=== PATIENT | female | born 1950 | race Caucasian/White ===

== ENCOUNTER → 2017-07-03 14:49 | Outpatient (CLI) | payer MEDICARE, MEDICAID, SELFPAY ==
--- NOTE | 2017-07-03 14:55 | XR_ITS ---
XR shoulder LT min 2V HISTORY: ITS.REASON: ACUTE LT SHOULDER PAIN ORDERING PHYSICIAN: JOSE CARLOS Robbins PATIENT AGE: 66 years COMPARISON: None FINDINGS: No fracture or dislocation. No lytic or blastic change. There is normal mineralization. The joint spaces are well-preserved. No significant degenerative/arthritic changes. No erosive changes evident. IMPRESSION: Negative, no acute finding
== END ==
PROVIDERS: PCP Family Medicine; Visit Provider Physician Assistant
DX: M25.512 Pain in left shoulder (principal)
CPT/HCPCS: 73030

== ENCOUNTER → 2017-07-15 08:49 | Outpatient (CLI) | payer MEDICARE, MEDICAID, SELFPAY ==
--- NOTE | 2017-07-15 08:57 | MR_ITS ---
MR shoulder LT wo con Ordering Physician: Nir Isaacs MD Patient Age: 67 years: Female HISTORY: ITS.REASON: ACUTE PAIN OF LEFT SHOULDER Limited range of motion with pain especially raising arm above the left left shoulder.. TECHNIQUE: Multiplanar multisequence imaging 1.5 [facility] MRI COMPARISON :Plain films left shoulder 07/03/2009 18 FINDINGS FULL-THICKNESS SUPRASPINATUS TENDON TEAR. Modest Full-thickness rotator cuff tear involving anterior aspect of the supraspinatus tendon. This tear mainly involves the inferior surface & intrasubstance portion and partially sparing the superior margin along the at the anterior aspect supraspinatus tendon.. There is full-thickness tear at the tendon insertion as well as other full-thickness tears are believe seen passing through the critical zone of supraspinatus tendon., Only scant, very minimal tendon retraction at the very anterior tendon insertion region. Overall estimated supraspinatus tendon tear to measure span span up to 11 mm AP on sagittal view & over 12 mm length on coronal view Focal area of increased signal cap of greater tuberosity , just beneath the anterior supraspinatus tendon insertion tear. This likely reflects the Progressive degenerative changes here & subchondral cystic changes in this region & although could reflect recent focal bone injury at this attachment point. . Also Associated fluid subdeltoid subacromial bursa reflecting the full-thickness rotator cuff tear... ---- Other components rotator cuff appear intact: Infraspinatus Tendon and muscle intact.. Subscapularis Tendon and muscle appear intact. Only scant if any tendinopathy near superior subscapularis tendon insertion. Moderate/generous joint effusion at left shoulder joint. This yields fluid tracking along the otherwise intact appearing biceps tendon. Osseous glenoid is intact. The posterior glenoid labrum small but appears intact. Anterior inferior glenoid labrum very small & blunted..- Suspect degeneration & minimal fraying most likely. This there is question of possible more pronounced tear or injury here.. In either case the anterior inferior labrum is small in diminutive. The more superior anterior labrum appears normal.. Also question and note what appears to be some mild edema inferior to the glenoid and along the inferior posterior joint capsule and soft tissues-seen on coronal image 6 and 7. No marialuisa disruption of the inferior glenohumeral ligament structures.. With only very minor AC joint arthropathy. Negligible. Slight downward sloping of the acromion with slightly narrowed, with just over 6 mm subacromial space beneath tip of acromion.. This mild subacromial stenosis beneath the tip of acromion may contribute to rotator cuff demise here and subacromial impingement. =====IMPRESSION========= . 1... Focal full-thickness rotator cuff tear towards anterior aspect the supraspinatus tendon . This tear mainly involves the undersurface and intrasubstance but with areas of full-thickness component. No prominent tendon retraction- only question some scant minor retraction anterior most supraspinatus insertion Associated fluid at subdeltoid subacromial bursa. 2. Generous joint effusion with associated fluid along the biceps tendon sheath, 3. Small diminutive anterior inferior glenoid labrum. Likely due to degeneration w/ fraying,;. However possible additional anterior labral tear 4.. Suggestion of mild edema in soft tissues just beneath the inferior posterior margin of glenoid. Joint capsule soft tissues with slight increased signal.. Correlation required.
== END ==
PROVIDERS: Family Provider Family Medicine; PCP Family Medicine; Visit Provider Family Medicine
DX: M25.512 Pain in left shoulder (principal)
CPT/HCPCS: 73221

== ENCOUNTER 2017-08-06 10:59 | Outpatient (RCR) | payer MEDICARE, MEDICAID, SELFPAY ==
--- NOTE | 2017-08-06 11:53 | HMH.PTOPEV ---
Rehab Outpatient Evaluation Rehab OP Evaluation Start: 08/06/17 11:38 Freq: Status: Active Protocol: Document 08/06/17 11:39 RMARSHALL (Rec: 08/06/17 11:52 [id number] Electronically Signed By Marga Wilkes OT 08/06/17 11:39 Outpatient Therapy Subjective History Subjective History Pt is a 67 year old female who reports to therapy for initial evaluation to left shoulder. Pt has been dx with left shoulder adhesive capsulitis and a L rotator cuff tear. Pt does not remember any specific injury to cause the problems at the shoulder. Pt reports pain, decreased AROM, and decreased strength. Pt does demonstrate with significant decreased AROM at left shoulder. Patient was also very weak in left arm. Pt has had one steroid injection in the left shoulder and will have two more injections over the next two months. Pt will continue to be seen twice a week in order to address these deficits. Chief Complaint Pain Stiff Catches/Locks Symptom Type Ache Throb Sharp Dull Stabbing Burning Shooting Symptoms Relieved By Nothing Symptoms Aggravated By Physical Activity Lifting Prior Functional Limitations None Current Functional Limitations Reaching Lifting Housework Dressing Driving Sleeping Recreation Activity Symptom Description Intermittent Activity Dependent Level of pain today (0-10) 1 Pain scale - at its best (0-10) 1 Pain scale - at its worst (0-10) 10 Shoulder/Elbow Eval Shoulder Objective Measurements Shoulder ROM Left Shoulder ROM Limitations Muscle Tone Pain [place]
== END 2017-08-06 11:00 | disposition home or self-care (01) ==
LOC: OT 10:59
PROVIDERS: Family Provider Family Medicine; PCP Family Medicine; Visit Provider Orthopaedic Surgery
DX: M25.512 Pain in left shoulder (principal); M75.42 Impingement syndrome of left shoulder; M75.102 Unspecified rotator cuff tear or rupture of left shoulder, not specified as traumatic; M75.02 Adhesive capsulitis of left shoulder
CPT/HCPCS: 97166

== ENCOUNTER 2017-08-12 14:25 | Inpatient (IN) ==
--- NOTE | 2017-08-12 15:05 | History & Physical Report ---
*Admission Date: 08/12/17 <Taty Long 08/12/17 15:18> *Chief complaint: weakness, dizziness and nauseated <EthanTaty 08/12/17 15:18> *History of present illness: Ms Johnson is a 67 year old female with a history of CAD, HLP, OAB, HTN and colon polyps who has been weak and dizzy for 5 days. She called her daughter 04/15 and reported the dizziness and stated that she was unable to walk very far without having to sit and rest. She may have passed out briefly. She did vomit once and had one black stool. She did call the ambulance service that day and EMT's assessed her. She was told that her BP was low, she was probably a little dehydrated from a stomach virus, and needed to drink more fluids. EKG was normal. She continued on with nausea but denied having any further vomiting or black stools. She denied hemachezia. Thus her daughter brought her to [facility] to see Dr. Patino for evaluation. H&H was found to be 5.8/18.5. She was admitted to [facility] for blood administration and surgical consult. AT the time of this exam she is extremely weak and became dizzy with minimal exertion. 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 <Taty Lnog 08/12 15:18> Laterality Cases: Left: Other, Bilateral: Tonsillectomy <Taty Long 08/12 15:18> Other Surgeries: Yes: Coronary Stent, Dilation and Curettage, Hysterectomy- Partial <Taty Long 08/12/17 15:18> Comment: cardiac stents x3 04/2005; cyst removed from the neck; polyps removed from colon 07/2016 <Taty Long 08/12/17 15:18> - *Social History Smoking Status: Former smoker <Taty Long 08/12/17 15:18> Alcohol Intake: never <LongTaty 08/12/17 15:18> - Psychiatric History Pschychiatric History:: Reports:: Depression <EthanTaty 08/12/17 15:18> *Family Hx:: Diabetes, Cancer, Coronary Artery Disease, Stroke <EthanTaty - 08/12/17 15:18> Review of Systems - Constitutional Reports fatigue, Reports fever(s), Reports lack of energy, Denies body ache(s), Denies chills, Denies headache(s) <[facility] 08/12/17 15:18> Comments: decreased appetite <Long,Taty 08/12/17 15:18> - Eyes Denies change in vision <Shilpa Longhy 08/12/17 15:18> - ENT Reports dizziness, Denies difficulty swallowing, Denies ear pain, Denies headache(s), Denies sore throat <Shilpa Longhy 08/12/17 15:18> - *Cardiovascular Reports shortness of breath, Reports shortness of breath with activity, Reports fainting, Denies chest pain, Denies leg swelling <EthanTaty 08/12/17 15: 18> - *Respiratory Reports shortness of breath with activity, Denies chest congestion, Denies cough , Denies coughing up blood <Shilpa Longhy 08/12/17 15:18> - *Gastrointestinal Reports abdominal pain, Reports change in bowel habits, Reports change in stools , Reports cramping, Reports black, tarry stools, Reports nausea, Reports vomiting, Denies constipation, Denies heartburn, Denies vomiting blood < Shilpa Longhy 08/12/17 15:18> - *Genitourinary Denies difficulty urinating <EthanTaty 08/12/17 15:18> - *Musculoskeletal Reports joint pain <Shilpa Longhy 08/12/17 15:18> Comments: has a torn rotator cuff of the left shoulder <Taty Long 08/12/17 15:18> - *Neurologic Reports unsteadiness, Reports dizziness <Taty Long 08/12/17 15:18> Comments: daughter reports some disorientation <Taty Long - 08/12/17 15:18> Meds Home Medications Medication Instructions Recorded Confirmed Type aspirin 81 mg tablet,delayed 81 mg PO DAILY 07/31/17 08/12/17 History release atorvastatin 40 mg tablet 40 mg PO HS 07/31/17 08/12/17 History citalopram 20 mg tablet 20 mg PO HS 07/31/17 08/12/17 History lisinopril 5 mg tablet 5 mg PO DAILY 07/31/17 08/12/17 History metoprolol succinate ER 25 mg 25 mg PO DAILY 07/31/17 08/12/17 History tablet,extended release 24 hr mirabegron ER 50 mg 50 mg PO HS 07/31/17 08/12/17 History tablet,extended release 24 hr multivitamin tablet 1 tab PO DAILY 07/31/17 08/12/17 History omeprazole 40 mg capsule,delayed 40 mg PO DAILY 07/31/17 08/12/17 History release <Antony Patino - 08/12/17 17:41> Allergies Allergy/AdvReac Type Severity Reaction Status Date / Time No Known Allergies Allergy Verified 08/12/17 15:50 <Antony Patino - 08/12/17 17:41> Exam Vital signs and Labs for Last 24 Hours: Temp Pulse Resp BP Pulse Ox 97.9 F 81 20 110/67 96 08/12/17 17:25 08/12/17 17:25 08/12/17 17:25 08/12/17 17:25 08/12/17 17:25 Laboratory Results - last 24 hr 08/12/17 14:50: WBC 8.9, RBC 2.32 L, Hgb 5.4 L*, Hct 19.2 L*, MCV 82.5, MCH 23.1 L, MCHC 28.0 L, RDW 15.1, Plt Count 347, MPV 8.5, Neut % (Auto) 67.0, Lymph % (Auto) 25.0, [place] % (Auto) 5.6, Eos % (Auto) 1.9, Baso % (Auto) 0.5, Neut # (Auto) 6.0, Lymph # (Auto) 2.2, [place] # (Auto) 0.5, Eos # (Auto) 0.2, Baso # (Auto) 0.0 08/12/17 14:50: PT 10.4, INR 0.96, APTT 22.1 L 08/12/17 14:50: Sodium 138, Potassium 3.3 L, Chloride 102, Carbon Dioxide 26, Anion Gap 13.3, BUN 13, Creatinine 0.75, Estimated Creat Clear 68, Estimated GFR 77, Est GFR ( Amer) 93, Glucose 117 H, Calcium 8.9, Total Bilirubin 0.2, AST 15, ALT 16, Alkaline Phosphatase 74, Total Protein 6.6, Albumin 3.1 L, Globulin 3.5 H, Albumin/Globulin Ratio 0.9 L 08/12/17 14:50: Blood Type A Negative, Antibody Screen Negative, Crossmatch ([facility] ) See Detail <Antony Patino 08/12/17 17:41> I & O for Last 24 hours: Intake & Output 08/10/17 08/11/17 08/12/17 08/13/17 11:59 11:59 11:59 11:59 Weight 177 lb 2 oz <Antony Patino 08/12/17 17:41> - Constitutional no acute distress <EthanTaty - 08/12/17 15:30> Comments: [facility] - *Routine HEENT Exam Head: Present: normocephalic, atraumatic <Taty Long 08/12/17 15:30> Eye: Present: PERRL. Absent: conjunctival icterus, scleral injection, conjunctivae pink (pale conjunctivae) <LongTaty - 08/12/17 15:30> ENT: Present: mucous membranes moist, oropharynx clear, nares patent, external ear normal, TM's clear bilaterally <[facility] 08/12/17 15:30> - *Routine Neck Exam Present: supple. Absent: carotid bruit, lymphadenopathy, thyromegaly, tenderness <Taty Long 08/12/17 15:30> - *Routine Respiratory Exam Absent: CTA bilaterally (A&P), respiratory distress <LongTaty 08/12/17 15:30> - *Routine Cardiovascular Exam Present: RRR <LongTaty - 08/12/17 15:30> - *Routine Abdominal Exam Present: soft, normoactive bowel sounds, tenderness. Absent: distended, guarding <Taty Long - 08/12/17 15:30> Comments: some mid abdominal tenderness <Taty Long - 08/12/17 15:30> - *Routine Extremities Exam Absent: edema, calf tenderness <Taty Long - 08/12/17 15:30> - *Routine Neurological Exam Present: alert, oriented X3 <Taty Long - 08/12/17 15:30> became dizzy with deep breathing for lung exam <Taty Long - 08/12/17 15:30> H&P: Result - Labs Labs: Short CBC 08/12/17 Range/Units 14:50 WBC 8.9 (4.8-10.8) K/mm3 Hgb 5.4 L* (12.2-16.2) g/dL Hct 19.2 L* (37.0-47.0) % Plt Count 347 (142-424) K/mm3 BMP 08/12/17 14:50 Sodium 138 Potassium 3.3 L Chloride 102 Carbon Dioxide 26 BUN 13 Creatinine 0.75 Glucose 117 H Calcium 8.9 Liver Function 08/12/17 Range/Units 14:50 Total Bilirubin 0.2 (0.2-1.0) mg/dL AST 15 (15-37) U/L ALT 16 (12-78) U/L Alkaline Phosphatase 74 (46-116) U/L Albumin 3.1 L (3.4-5.0) gm/dL <Antony Patino - 08/12/17 17:41> Assessment and Plan (1) Anemia Current visit: Yes Status: Acute Category: Medical Code(s): D64.9 - Anemia, unspecified (2) Anemia associated with acute blood loss Current visit: Yes Status: Acute Category: Medical Code(s): D62 - Acute posthemorrhagic anemia (3) GI bleed Current visit: Yes Status: Acute Category: Medical Code(s): K92.2 - Gastrointestinal hemorrhage, unspecified (4) CAD (coronary artery disease) Current visit: Yes Status: Chronic Category: Medical Code(s): I25.10 - Atherosclerotic heart disease of [place] tribe coronary artery without angina pectoris (5) HTN (hypertension) Current visit: Yes Status: Chronic Category: Medical Code(s): I10 - Essential (primary) hypertension <Antony Patino - 08/12/17 17:41> (1) Anemia Current visit: Yes Status: Acute Category: Medical Code(s): D64.9 - Anemia, unspecified (2) Anemia associated with acute blood loss Current visit: Yes Status: Acute Category: Medical Code(s): D62 - Acute posthemorrhagic anemia (3) GI bleed Current visit: Yes Status: Acute Category: Medical Code(s): K92.2 - Gastrointestinal hemorrhage, unspecified (4) CAD (coronary artery disease) Current visit: Yes Status: Chronic Category: Medical Code(s): I25.10 - Atherosclerotic heart disease of [place] coronary artery without angina pectoris (5) HTN (hypertension) Current visit: Yes Status: Chronic Category: Medical Code(s): I10 - Essential (primary) hypertension <Taty Long - 08/12/17 15:18> - Assessment and plan all Dx Assessment and Plan for all problems:: Saw patient, discussed case with Dr. Aj, agree with above note. <Antony Patino - 08/12/17 17:41> To receive 3 units of PRBC; monitor H&H; surgical consult; PPI; some of home meds have been restarted <Taty Long - 08/12/17 15:30>
[2017-08-12 15:13] LABS: Eosinophils # 0.2 K/mm3 (0.0-0.4); Eosinophils % 1.9 % (0.1-12.0); Lymphocytes # 2.2 K/mm3 (0.7-4.5); Red Blood Count 2.32 M/mm3 (4.20-5.40)
[2017-08-12 15:17] LABS: Basophils % 0.5 % (0.1-2.0); Mean Corpuscular Hemoglobin 23.1 pg (27.0-31.2); Mean Corpuscular Volume 82.5 fl (81-99); Mean Platelet Volume 8.5 fl (7.4-10.4); Monocytes # 0.5 K/mm3 (0.1-1.0); Monocytes % 5.6 % (1.7-9.3); Platelet Count 347 K/mm3 (142-424); Red Cell Distribution Width 15.1 % (11.5-17.5); White Blood Count 8.9 K/mm3 (4.8-10.8)
[2017-08-12 15:18] LABS: Hematocrit 19.2 % (37.0-47.0); Hemoglobin 5.4 g/dL (12.2-16.2)
[2017-08-12 15:19] LABS: Albumin Level 3.1 gm/dL (3.4-5.0); Albumin/Globulin Ratio 0.9 (1.1-1.8); Anion Gap 13.3 mEq/L (5-15); Bilirubin,Total 0.2 mg/dL (0.2-1.0); Calcium 8.9 mg/dL (8.5-10.1); Globulin 3.5 gm/dl (1.3-3.2); Potassium 3.3 mmoL/L (3.5-5.1); Total Protein,Serum 6.6 gm/dL (6.4-8.2)
[2017-08-12 15:58] LABS: Activated Partial Thrombo Time 22.1 seconds (23.6-34.0); INR 0.96 (0.9-1.1); Prothrombin Time 10.4 seconds (9.4-11.8)
--- NOTE | 2017-08-12 16:19 | Consult Report ---
*Admission Date: 08/12/17 *Chief complaint: Weakness *History of present illness: Ms Johnson is a 67 year old female with a history of CAD, HLP, OAB, HTN. She has had progressive weakness with minimal exertion over about 5 days. When this all began she had an episode of vomiting. There was no visible blood and this was non-coffee ground like. She has had some black stools over the past several days. She had presented to [facility] today and underwent blood work which revealed profound anemia with a hemoglobin of 5.8. She did have some near syncopal episode and was admitted for inpatient management, transfusion, and surgical consultation. Of note, patient has prior history of possible ulcerative colitis considered many years ago and had seen Dr. Juilen. She has had colonoscopies. She had a colonoscopy by Dr. Tripp revealing several polyps in 2011. I performed colonoscopy on 08/14/16 and she had 3 tubular adenomas and internal hemorrhoids as well as some diverticulosis. Biopsies were obtained within the terminal ileum and random colon biopsies were obtained and these were unremarkable. She denies any rectal bleeding. Denies any prior history of ulcer disease. Denies previous upper endoscopy. Review of Systems - Review of Systems Review of systems:: pertinent systems reviewed and negative unless documented below - *Neurologic Reports unsteadiness, Reports dizziness, Reports fainting, Denies headache(s) [facility] History Medical History: Reports:: Atherosclerotic Heart Disease, Coronary Artery Disease, Depression, Hyperlipidemia, Hypertension, Myocardial Infarction Denies:: Cancer, Diabetes Mellitus Type 1, Diabetes Mellitus Type 2, MRSA Other Medical History: Reports: Anemia Laterality Cases: Left: Other, Bilateral: Tonsillectomy Other Surgeries: Yes: Coronary Stent, Dilation and Curettage, Hysterectomy- Partial Amputation: No - *Social History Educational Level: Completed High School Smoking Status: Former smoker Tobacco Type: cigarettes Smoking End Date: 2015 Alcohol Intake: never Occupational Status: retired Household Members: none - Psychiatric History Expresses thoughts of harming self/others: None Suicide Plan Description: No Plan Pschychiatric History:: Reports:: Depression *Family Hx:: Diabetes, Cancer, Coronary Artery Disease, Stroke Meds Home Medications Medication Instructions Recorded Confirmed Type aspirin 81 mg tablet,delayed 81 mg PO DAILY 07/31/17 08/12/17 History release atorvastatin 40 mg tablet 40 mg PO HS 07/31/17 08/12/17 History citalopram 20 mg tablet 20 mg PO HS 07/31/17 08/12/17 History lisinopril 5 mg tablet 5 mg PO DAILY 07/31/17 08/12/17 History metoprolol succinate ER 25 mg 25 mg PO DAILY 07/31/17 08/12/17 History tablet,extended release 24 hr mirabegron ER 50 mg 50 mg PO HS 07/31/17 08/12/17 History tablet,extended release 24 hr multivitamin tablet 1 tab PO DAILY 07/31/17 08/12/17 History omeprazole 40 mg capsule,delayed 40 mg PO DAILY 07/31/17 08/12/17 History release Allergies Allergy/AdvReac Type Severity Reaction Status Date / Time No Known Allergies Allergy Verified 08/12/17 15:50 Exam Vital signs and Labs for Last 24 Hours: Temp Pulse Resp BP Pulse Ox 98.1 F 73 20 114/67 95 08/12/17 15:01 08/12/17 15:01 08/12/17 15:01 08/12/17 15:01 08/12/17 15:01 Laboratory Results - last 24 hr 08/12/17 14:50: WBC 8.9, RBC 2.32 L, Hgb 5.4 L*, Hct 19.2 L*, MCV 82.5, MCH 23.1 L, MCHC 28.0 L, RDW 15.1, Plt Count 347, MPV 8.5, Neut % (Auto) 67.0, Lymph % (Auto) 25.0, [place] % (Auto) 5.6, Eos % (Auto) 1.9, Baso % (Auto) 0.5, Neut # (Auto) 6.0, Lymph # (Auto) 2.2, Frio # (Auto) 0.5, Eos # (Auto) 0.2, Baso # (Auto) 0.0 08/12/17 14:50: PT 10.4, INR 0.96, APTT 22.1 L 08/12/17 14:50: Sodium 138, Potassium 3.3 L, Chloride 102, Carbon Dioxide 26, Anion Gap 13.3, BUN 13, Creatinine 0.75, Estimated Creat Clear 68, Estimated GFR 77, Est GFR ( Amer) 93, Glucose 117 H, Calcium 8.9, Total Bilirubin 0.2, AST 15, ALT 16, Alkaline Phosphatase 74, Total Protein 6.6, Albumin 3.1 L, Globulin 3.5 H, Albumin/Globulin Ratio 0.9 L 08/12/17 14:50: Blood Type A Negative, Crossmatch ([facility]) See Detail I & O for Last 24 hours: Intake & Output 08/10/17 08/11/17 08/12/17 08/13/17 11:59 11:59 11:59 11:59 Weight 177 lb 2 oz - Constitutional chronically ill appearing Comments: Quite pale appearing - *Routine Respiratory Exam Present: CTA bilaterally - *Routine Cardiovascular Exam Present: RRR - *Routine Abdominal Exam Present: soft. Absent: tenderness Results - Labs 08/12/17 14:50 08/12/17 14:50 Laboratory Results - last 24 hr 08/12/17 14:50: WBC 8.9, RBC 2.32 L, Hgb 5.4 L*, Hct 19.2 L*, MCV 82.5, MCH 23.1 L, MCHC 28.0 L, RDW 15.1, Plt Count 347, MPV 8.5, Neut % (Auto) 67.0, Lymph % (Auto) 25.0, [place] % (Auto) 5.6, Eos % (Auto) 1.9, Baso % (Auto) 0.5, Neut # (Auto) 6.0, Lymph # (Auto) 2.2, Frio # (Auto) 0.5, Eos # (Auto) 0.2, Baso # (Auto) 0.0 08/12/17 14:50: PT 10.4, INR 0.96, APTT 22.1 L 08/12/17 14:50: Sodium 138, Potassium 3.3 L, Chloride 102, Carbon Dioxide 26, Anion Gap 13.3, BUN 13, Creatinine 0.75, Estimated Creat Clear 68, Estimated GFR 77, Est GFR ( Amer) 93, Glucose 117 H, Calcium 8.9, Total Bilirubin 0.2, AST 15, ALT 16, Alkaline Phosphatase 74, Total Protein 6.6, Albumin 3.1 L, Globulin 3.5 H, Albumin/Globulin Ratio 0.9 L 08/12/17 14:50: Blood Type A Negative, Crossmatch ([facility]) See Detail Assessment and Plan (1) Anemia Current visit: Yes Status: Acute Category: Medical Code(s): D64.9 - Anemia , unspecified At this time tentatively plan for upper endoscopy tomorrow morning for diagnosis and less likely for therapeutic indications. She may have clear liquids tonight. She is to be transfused tonight. (2) Anemia associated with acute blood loss Current visit: Yes Status: Acute Category: Medical Code(s): D62 - Acute posthemorrhagic anemia (3) GI bleed Current visit: Yes Status: Acute Category: Medical Code(s): K92.2 - Gastrointestinal hemorrhage, unspecified (4) CAD (coronary artery disease) Current visit: Yes Status: Chronic Category: Medical Code(s): I25.10 - Atherosclerotic heart disease of tribal coronary artery without angina pectoris (5) HTN (hypertension) Current visit: Yes Status: Chronic Category: Medical Code(s): I10 - Essential (primary) hypertension
[2017-08-13 06:56] LABS: Basophils % 0.4 % (0.1-2.0); Eosinophils # 0.2 K/mm3 (0.0-0.4); Eosinophils % 2.2 % (0.1-12.0); Hematocrit 28.6 % (37.0-47.0); Lymphocytes # 1.8 K/mm3 (0.7-4.5); Mean Corpuscular HGB Conc 31.8 g/dL (31.8-35.4); Mean Corpuscular Hemoglobin 27.3 pg (27.0-31.2); Mean Corpuscular Volume 85.8 fl (81-99); Mean Platelet Volume 8.4 fl (7.4-10.4); Monocytes # 0.5 K/mm3 (0.1-1.0); Monocytes % 6.2 % (1.7-9.3); Neutrophils # 5.1 K/mm3 (1.8-7.8); Neutrophils % 67.1 % (37.0-80.0); Platelet Count 220 K/mm3 (142-424); Red Blood Count 3.33 M/mm3 (4.20-5.40); Red Cell Distribution Width 14.8 % (11.5-17.5); White Blood Count 7.6 K/mm3 (4.8-10.8)
[2017-08-13 07:08] LABS: Hemoglobin 9.2 g/dL (12.2-16.2)
[2017-08-13 07:11] LABS: Anion Gap 9.7 mEq/L (5-15); Potassium 4.7 mmoL/L (3.5-5.1)
--- NOTE | 2017-08-13 07:22 | Pharmacy Consult Notes ---
[facility] Pharmacy VTE Monitoring - Patient Demographics Admission date: 08/12/17 Report Date: 08/13/17 Time: 07:22 Allergies/Adverse Reactions: Patient Allergies No Known Allergies Allergy (Verified 08/12/17 15:50) Height: 1.63 m Weight: 80.343 kg Patient Problems: Current Active Problems Anemia (Acute) Anemia associated with acute blood loss (Acute) GI bleed (Acute) CAD (coronary artery disease) (Chronic) HTN (hypertension) (Chronic) - VTE Risk Labs: VTE Related Lab Results Hgb 9.2 g/dL (12.2-16.2) L D 08/13/17 06:05 Hct 28.6 % (37.0-47.0) L 08/13/17 06:05 Plt Count 220 K/mm3 (142-424) D 08/13/17 06:05 PT 10.4 seconds (9.4-11.8) 08/12/17 14:50 INR 0.96 (0.9-1.1) 08/12/17 14:50 APTT 22.1 seconds (23.6-34.0) L 08/12/17 14:50 BUN 9 mg/dL (7-18) D 08/13/17 06:05 Creatinine 0.74 mg/dL (0.55-1.02) 08/13/17 06:05 Estimated Creat Clear 68 mL/min (0-300) 08/13/17 06:05 Was VTE Risk Assessment Performed: Yes VTE Score: 2 VTE Risk Level: Very Low Risk Clinical Trial Participant: No - Prophylaxis VTE Prophylaxis Ordered?: Yes Types of VTE Prophylaxis: TEDS Knee High Location of Applied Device: Bilateral Lower Extremeties
--- NOTE | 2017-08-13 09:08 | Procedure Note ---
- Procedure: Date: 08/13/17 Procedure Performed:: Esophagogastroduodenoscopy with biopsy Indications:: Patient is a pleasant 67-year-old white female. She has undergone several colonoscopies in the past. Most recent colonoscopy was in July 2016. She had presented to her primary care provider's office yesterday with a several day history of weakness and near syncope. She did have black stool. Denied hematemesis. Evaluation including bark revealed profound anemia with a hemoglobin of 5.4. Patient was admitted for inpatient management and surgical consultation. Plan was made for upper endoscopy. Patient was transfused 3 units of packed red blood cells with a good appropriate response and marked symptomatic improvement. Performing Provider:: Antony Aj MD Referring Provider:: Antony Patino MD Sedation:: Propofol Procedure:: Consent was obtained the patient was taken to endoscopy procedure room. She was positioned in a lateral decubitus position. Adequate intravenous sedation was achieved with titration of propofol. Olympus endoscope was inserted via the oropharynx and advanced the esophagus which appeared grossly normal. Stomach was cannulated and insufflated. Retroflexion revealed a rather large sliding hiatal hernia. There was a linear erosion along the mid body of the stomach but no evidence of any recent or active bleeding. There was some punctate prepyloric gastritis which was nonerosive. Pylorus was traversed. Duodenal bulb and duodenal sweep to the third portion of the duodenum were unremarkable. Endoscope was withdrawn into the stomach and gastric antral mucosal biopsies obtained for CLOtest for H. pylori. Stomach was desufflated and the scope was withdrawn. Findings:: Large hiatal hernia Linear gastric erosion Recommendations:: No obvious source on upper endoscopy that would explain the significant amount of blood loss. This could be non-GI source. However, despite the fact that the patient has had relatively recent colonoscopy plan colonoscopy tomorrow after bowel prep. Complications:: None Estimated blood obtained (mL): 1
--- NOTE | 2017-08-13 13:18 | Progress Note ---
Internal Medicine - PN: Subj *Date: 08/13/17 *Time: 13:15 Interval history: Patient back in her room now after EGD, just ate some jello and drank some juice. Exam Vital signs and Labs for Last 24 Hours: Temp Pulse Resp BP Pulse Ox 97.9 F 74 16 110/47 99 08/13/17 10:35 08/13/17 11:20 08/13/17 11:20 08/13/17 11:20 08/13/17 11:20 Laboratory Results - last 24 hr 08/12/17 14:50: WBC 8.9, RBC 2.32 L, Hgb 5.4 L*, Hct 19.2 L*, MCV 82.5, MCH 23.1 L, MCHC 28.0 L, RDW 15.1, Plt Count 347, MPV 8.5, Neut % (Auto) 67.0, Lymph % (Auto) 25.0, [place] % (Auto) 5.6, Eos % (Auto) 1.9, Baso % (Auto) 0.5, Neut # (Auto) 6.0, Lymph # (Auto) 2.2, [place] # (Auto) 0.5, Eos # (Auto) 0.2, Baso # (Auto) 0.0 08/12/17 14:50: PT 10.4, INR 0.96, APTT 22.1 L 08/12/17 14:50: Sodium 138, Potassium 3.3 L, Chloride 102, Carbon Dioxide 26, Anion Gap 13.3, BUN 13, Creatinine 0.75, Estimated Creat Clear 68, Estimated GFR 77, Est GFR ( Amer) 93, Glucose 117 H, Calcium 8.9, Total Bilirubin 0.2, AST 15, ALT 16, Alkaline Phosphatase 74, Total Protein 6.6, Albumin 3.1 L, Globulin 3.5 H, Albumin/Globulin Ratio 0.9 L 08/12/17 14:50: Blood Type A Negative, Antibody Screen Negative, Crossmatch (AHG ) See Detail 08/13/17 06:05: WBC 7.6, RBC 3.33 L D, Hgb 9.2 L D, Hct 28.6 L, MCV 85.8, MCH 27.3, MCHC 31.8, RDW 14.8, Plt Count 220 D, MPV 8.4, Neut % (Auto) 67.1, Lymph % (Auto) 24.0, [place] % (Auto) 6.2, Eos % (Auto) 2.2, Baso % (Auto) 0.4, Neut # ( Auto) 5.1, Lymph # (Auto) 1.8, [place] # (Auto) 0.5, Eos # (Auto) 0.2, Baso # (Auto ) 0.0 08/13/17 06:05: Sodium 142, Potassium 4.7 D, Chloride 108 H, Carbon Dioxide 29 , Anion Gap 9.7, BUN 9 D, Creatinine 0.74, Estimated Creat Clear 68, Estimated GFR 78, Est GFR ( Amer) 94, Glucose 108 H Vital Signs Temp Pulse Pulse Resp BP BP Pulse Ox 08/13/17 11:20 74 16 110/47 99 08/13/17 10:50 78 16 125/74 97 08/13/17 10:35 97.9 F 74 16 117/67 99 08/13/17 10:20 97.9 F 74 16 125/73 97 08/13/17 10:05 97.9 F 73 16 120/65 99 08/13/17 09:51 97 08/13/17 09:48 97.9 F 73 131/59 97 08/13/17 09:40 77 20 109/70 100 08/13/17 09:30 71 20 117/58 100 08/13/17 09:20 72 20 106/61 100 08/13/17 09:10 69 20 103/60 98 08/13/17 09:08 98.0 F 70 20 94/61 96 08/13/17 07:15 97.9 F 71 22 87/61 96 08/13/17 03:10 98.1 F 77 18 113/58 94 L 08/13/17 02:10 98.0 F 67 16 119/67 99 08/13/17 01:30 97.9 F 73 16 106/54 94 L 08/13/17 00:30 98.3 F 72 16 88/64 95 08/13/17 00:15 97.4 F L 71 16 103/46 98 08/13/17 00:00 97.7 F 69 16 100/54 98 08/12/17 23:45 97.8 F 74 18 92/49 97 04/16/18 23:38 97.5 F L 75 16 106/54 96 /16/18 23:32 97.4 F L 78 16 99/56 95 16/18 23:28 98.2 F 73 18 104/61 95 16/18 23:24 97.9 F 68 18 112/75 95 16/18 23:05 97.5 F L 72 18 109/47 95 16/18 22:40 98.2 F 68 16 106/69 94 L 1618 21:40 97.8 F 70 18 123/74 95 16/18 21:25 98.5 F 72 18 103/55 96 16/18 21:10 98.1 F 74 18 121/53 96 1618 20:55 98.0 F 83 18 121/78 97 16/18 20:50 98.1 F 76 18 124/65 94 L 18 20:45 98.1 F 82 18 120/81 98 1618 20:40 98.2 F 76 18 103/59 95 16/18 20:36 97.9 F 85 20 133/62 98 /16/18 20:12 97.9 F 85 20 133/62 98 /16/18 19:37 97.9 F 82 20 146/95 99 16/18 19:10 98.2 F 79 20 133/75 98 /16/18 18:55 98.1 F 78 20 138/82 99 /16/18 17:55 98.0 F 73 18 130/68 96 16/18 17:40 98.0 F 75 20 120/57 98 16/18 17:25 97.9 F 81 20 110/67 96 /16/18 17:10 98.2 F 75 20 120/55 98 /16/18 17:05 98.0 F 73 18 116/64 94 L 16/18 17:00 98.3 F 74 20 113/55 96 16/18 16:55 97.9 F 78 20 132/53 98 /16/18 16:45 97.7 F 78 20 117/55 97 16/18 15:01 98.1 F 73 20 114/67 95 Intake and Output 08/13/18 08/13/17 08/13/17 03:59 11:59 19:59 Intake Total 281 / 281 Balance 281 / 281 Intake: Intake, Total IV Amount 281 / 281 D5W/0.45% NaCl w/40mEq KCl 1, 281 / 281 000 ml @ 75 mls/hr IV .[id number] [place] Rx#:[id number] Other: Weight 177 lb 2 oz I & O for Last 24 hours: Intake & Output 08/11/17 08/12/17 08/13/17 08/14/17 11:59 11:59 11:59 11:59 Intake Total 1229 / 1229 Balance 1229 / 1229 Weight 177 lb 2 oz - Constitutional no acute distress - *Routine HEENT Exam ENT: Present: mucous membranes moist - *Routine Respiratory Exam Present: CTA bilaterally - *Routine Cardiovascular Exam Present: RRR Assessment and Plan (1) Anemia Current visit: Yes Status: Acute Category: Medical Code(s): D64.9 - Anemia , unspecified (2) Anemia associated with acute blood loss Current visit: Yes Status: Acute Category: Medical Code(s): D62 - Acute posthemorrhagic anemia (3) GI bleed Current visit: Yes Status: Acute Category: Medical Code(s): K92.2 - Gastrointestinal hemorrhage, unspecified (4) CAD (coronary artery disease) Current visit: Yes Status: Chronic Category: Medical Code(s): I25.10 - Atherosclerotic heart disease of [place] coronary artery without angina pectoris (5) HTN (hypertension) Current visit: Yes Status: Chronic Category: Medical Code(s): I10 - Essential (primary) hypertension (6) Hypokalemia Current visit: Yes Status: Resolved Category: Medical Code(s): E87.6 - Hypokalemia - Assessment and plan all Dx Assessment and Plan for all problems:: No obvious source of bleeding found, plans are for a colonoscopy tomorrow.
--- NOTE | 2017-08-14 08:05 | Progress Note ---
<Alida Rowland - Last Filed: 08/14/17 08:02> Internal Medicine - PN: Subj *Date: 08/14/17 *Time: 08:02 Interval history: Patient states she actually feels weaker than she did yesterday. She denies any pain. She states she slept well last night. She has not had any food since admission. Exam Vital signs and Labs for Last 24 Hours: Temp Pulse Resp BP Pulse Ox 97.4 F L 80 20 128/57 98 08/14/17 07:42 08/14/17 07:42 08/14/17 07:42 08/14/17 07:42 08/14/17 07:42 Lab Results 08/12/17 14:50: WBC 8.9, RBC 2.32 L, Hgb 5.4 L*, Hct 19.2 L*, MCV 82.5, MCH 23.1 L, MCHC 28.0 L, RDW 15.1, Plt Count 347, MPV 8.5, Neut % (Auto) 67.0, Lymph % (Auto) 25.0, [place] % (Auto) 5.6, Eos % (Auto) 1.9, Baso % (Auto) 0.5, Neut # (Auto) 6.0, Lymph # (Auto) 2.2, [place] # (Auto) 0.5, Eos # (Auto) 0.2, Baso # (Auto) 0.0 08/12/17 14:50: PT 10.4, INR 0.96, APTT 22.1 L 08/12/17 14:50: Sodium 138, Potassium 3.3 L, Chloride 102, Carbon Dioxide 26, Anion Gap 13.3, BUN 13, Creatinine 0.75, Estimated Creat Clear 68, Estimated GFR 77, Est GFR ( Amer) 93, Glucose 117 H, Calcium 8.9, Total Bilirubin 0.2, AST 15, ALT 16, Alkaline Phosphatase 74, Total Protein 6.6, Albumin 3.1 L, Globulin 3.5 H, Albumin/Globulin Ratio 0.9 L 08/12/17 14:50: Blood Type A Negative, Antibody Screen Negative, Crossmatch (AHG ) See Detail 08/13/17 06:05: WBC 7.6, RBC 3.33 L D, Hgb 9.2 L D, Hct 28.6 L, MCV 85.8, MCH 27.3, MCHC 31.8, RDW 14.8, Plt Count 220 D, MPV 8.4, Neut % (Auto) 67.1, Lymph % (Auto) 24.0, [place] % (Auto) 6.2, Eos % (Auto) 2.2, Baso % (Auto) 0.4, Neut # ( Auto) 5.1, Lymph # (Auto) 1.8, [place] # (Auto) 0.5, Eos # (Auto) 0.2, Baso # (Auto ) 0.0 08/13/17 06:05: Sodium 142, Potassium 4.7 D, Chloride 108 H, Carbon Dioxide 29 , Anion Gap 9.7, BUN 9 D, Creatinine 0.74, Estimated Creat Clear 68, Estimated GFR 78, Est GFR ( Amer) 94, Glucose 108 H Microbiology Results 08/13/17 08:55 Gastric Biopsy Helicobacter pylori Urease &Culture - Pending I & O for Last 24 hours: Intake & Output 08/11/17 08/12/17 08/13/17 08/14/17 11:59 11:59 11:59 11:59 Intake Total 1229 / 1229 1082 / 1082 Output Total 600 / 600 Balance 1229 / 1229 482 / 482 Weight 177 lb 2 oz - Constitutional no acute distress - *Routine Respiratory Exam Present: CTA bilaterally - *Routine Cardiovascular Exam Present: RRR - *Routine Abdominal Exam Present: soft, normoactive bowel sounds. Absent: tenderness - *Routine Extremities Exam Absent: edema Assessment and Plan (1) Anemia Current visit: Yes Status: Acute Category: Medical Code(s): D64.9 - Anemia , unspecified (2) Anemia associated with acute blood loss Current visit: Yes Status: Acute Category: Medical Code(s): D62 - Acute posthemorrhagic anemia (3) GI bleed Current visit: Yes Status: Acute Category: Medical Code(s): K92.2 - Gastrointestinal hemorrhage, unspecified (4) CAD (coronary artery disease) Current visit: Yes Status: Chronic Category: Medical Code(s): I25.10 - Atherosclerotic heart disease of [place] coronary artery without angina pectoris (5) HTN (hypertension) Current visit: Yes Status: Chronic Category: Medical Code(s): I10 - Essential (primary) hypertension (6) Hypokalemia Current visit: Yes Status: Resolved Category: Medical Code(s): E87.6 - Hypokalemia - Assessment and plan all Dx Assessment and Plan for all problems:: Patient's H&H has improved after blood transfusion. She is scheduled to have a colonoscopy today. <SukumarAntony - Last Filed: 08/14/17 17:38> Internal Medicine - PN: Subj *Date: 08/14/17 *Time: 17:36 Exam Vital signs and Labs for Last 24 Hours: Temp Pulse Resp BP Pulse Ox 98.4 F 82 20 132/72 98 08/14/17 14:00 08/14/17 14:00 08/14/17 14:00 08/14/17 14:00 08/14/17 14:00 Laboratory Results - last 24 hr 08/14/17 10:15: WBC 5.6 D, RBC 3.41 L, Hgb 9.1 L, Hct 29.5 L, MCV 86.4, MCH 26.8 L, MCHC 30.9 L, RDW 15.0, Plt Count 199, MPV 10.0, Neut % (Auto) 59.4, Lymph % (Auto) 29.0, [place] % (Auto) 7.6, Eos % (Auto) 3.5, Baso % (Auto) 0.6, Neut # (Auto) 3.3, Lymph # (Auto) 1.6, [place] # (Auto) 0.4, Eos # (Auto) 0.2, Baso # (Auto) 0.0 I & O for Last 24 hours: Intake & Output 08/12/17 08/13/17 08/14/17 08/15/17 11:59 11:59 11:59 11:59 Intake Total 1229 / 1229 1282 / 1282 240 / 240 Output Total 600 / 600 Balance 1229 / 1229 682 / 682 240 / 240 Weight 177 lb 2 oz 177 lb 2.016 oz Microbiology Reports for the Last 24 Hours: Microbiology 08/13/17 08:55 Gastric Biopsy Helicobacter pylori Urease &Culture - Final Negative Urease for Helicobacter pylori. Assessment and Plan (1) Anemia Current visit: Yes Status: Acute Category: Medical Code(s): D64.9 - Anemia , unspecified (2) Anemia associated with acute blood loss Current visit: Yes Status: Acute Category: Medical Code(s): D62 - Acute posthemorrhagic anemia (3) GI bleed Current visit: Yes Status: Acute Category: Medical Code(s): K92.2 - Gastrointestinal hemorrhage, unspecified (4) CAD (coronary artery disease) Current visit: Yes Status: Chronic Category: Medical Code(s): I25.10 - Atherosclerotic heart disease of [place] coronary artery without angina pectoris (5) HTN (hypertension) Current visit: Yes Status: Chronic Category: Medical Code(s): I10 - Essential (primary) hypertension (6) Hypokalemia Current visit: Yes Status: Resolved Category: Medical Code(s): E87.6 - Hypokalemia - Assessment and plan all Dx Assessment and Plan for all problems:: Saw patient, agree with above note. Colonoscopy was non diagnostic. Patient is feeling well and wants to go home. Plan discharge today with oral iron replacement, f/u in office next week for repeat CBC.
--- NOTE | 2017-08-14 09:26 | Procedure Note ---
- Procedure: Date: 08/14/17 Procedure Performed:: Colonoscopy to terminal ileum with polypectomy Indications:: Patient is 67-year-old white female. She is undergone previous colonoscopy. Last colonoscopy was 1 year ago. She had presented with acute symptomatic anemia. She was admitted for inpatient management and transfused with good response. She underwent upper endoscopy yesterday which revealed large hiatal hernia and single linear erosion within the body of the stomach but no evidence of any obvious etiology for acute blood loss. Plan was made for colonoscopy to evaluate colonic source. Performing Provider:: Antony Aj MD Referring Provider:: Antony Patino MD Sedation:: Propofol Procedure:: Patient was taken to endoscopy procedure room. Adequate intravenous sedation was achieved. Variable stiffness Olympus colonoscope was inserted via the anus and with minimal difficulty was advanced to the cecum. She did have a floppy redundant sigmoid colon. Ileocecal valve and appendiceal orifice were clearly identified. Colonoscope was advanced into the terminal ileum which appeared grossly normal. Colonoscope was withdrawn through the colon with careful surveillance. Within the ascending colon there was a diminutive polyp removed in a piecemeal fashion using cold biopsy forceps. Small additional very diminutive polyp was encountered in the proximal transverse colon removed with cold biopsy forceps. Additional polyp was noted in the descending colon and removed in a similar fashion. She had some significant sigmoid diverticulosis but no evidence of any active diverticular bleed or diverticulitis. Within the rectum retroflexion was performed which revealed nonbleeding internal hemorrhoids. Colonoscope was withdrawn. Findings:: Diminutive polyps Diverticulosis Recommendations:: No source of GI blood loss on colonoscopy. It is possible she may have had upper GI source which is now resolved, the erosion previously noted. At this point I would plan to check the hemoglobin and hematocrit for stability. If stable may will be discharged and follow up as an outpatient for possible small bowel evaluation including small bowel follow-through and possible capsule endoscopy. Complications:: None Estimated blood obtained (mL): 2
[2017-08-14 10:25] LABS: Basophils % 0.6 % (0.1-2.0); Eosinophils # 0.2 K/mm3 (0.0-0.4); Eosinophils % 3.5 % (0.1-12.0); Hematocrit 29.5 % (37.0-47.0); Hemoglobin 9.1 g/dL (12.2-16.2); Lymphocytes # 1.6 K/mm3 (0.7-4.5); Mean Corpuscular HGB Conc 30.9 g/dL (31.8-35.4); Mean Corpuscular Hemoglobin 26.8 pg (27.0-31.2); Mean Corpuscular Volume 86.4 fl (81-99); Monocytes # 0.4 K/mm3 (0.1-1.0); Monocytes % 7.6 % (1.7-9.3); Neutrophils # 3.3 K/mm3 (1.8-7.8); Neutrophils % 59.4 % (37.0-80.0); Platelet Count 199 K/mm3 (142-424); Red Blood Count 3.41 M/mm3 (4.20-5.40); White Blood Count 5.6 K/mm3 (4.8-10.8)
[2017-08-14 14:35] VITALS: BP 132/72
--- NOTE | 2017-08-18 14:54 | Discharge Summary ---
General - General Admission date: 08/12/17 Discharge date: 08/14/17 HPI HPI: Ms Johnson is a 67 year old female with a history of CAD, HLP, OAB, HTN and colon polyps who has been weak and dizzy for 5 days. She called her daughter on 08/08/17 and reported the dizziness and stated that she was unable to walk very far without having to sit and rest. She may have passed out briefly. She did vomit once and had one black stool. She did call the ambulance service that day and EMT's assessed her. She was told that her BP was low, she was probably a little dehydrated from a stomach virus, and needed to drink more fluids. EKG was normal. She continued on with nausea but denied having any further vomiting or black stools. She denied hemachezia. Her daughter brought her to [facility] to see Dr. Patino for evaluation. H&H was found to be 5.8/18.5. She was admitted to [facility] for blood administration and a surgical consult. At the time of this exam she is extremely weak and became dizzy with minimal exertion. Hospital Course Hospital Course: The patient was given 3 units of PRBC and a surgical consult was ordered. The patient had an EGD and Dr. Aj found a large hiatal hernia and a linear gastric erosion. There was no obvious source of bleeding. The patient then had a C-scope and it showed diminutive polyps and diverticulosis, but once again , no obvious source of bleeding. Her H&H stabilized. felt she could be discharged and will need to continue to monitor H&H. She was discharged on iron and will f/u in the office of [facility] in 1 week. She will need to follow up as an outpatient with Dr. Aj for possible small bowel evaluation including small bowel follow-through and possible capsule endoscopy. Objective Vital signs: Temp Pulse Resp BP Pulse Ox 98.4 F 82 20 132/72 98 08/14/17 14:00 08/14/17 14:00 08/14/17 14:00 08/14/17 14:00 08/14/17 14:00 Narrative: - Constitutional no acute distress Comments: pale - *Routine HEENT Exam Head: Present: normocephalic, atraumatic Eye: Present: PERRL. Absent: conjunctival icterus, scleral injection, conjunctivae pink (pale conjunctivae) ENT: Present: mucous membranes moist, oropharynx clear, nares patent, external ear normal, TM's clear bilaterally - *Routine Neck Exam Present: supple. Absent: carotid bruit, lymphadenopathy, thyromegaly, tenderness - *Routine Respiratory Exam Absent: CTA bilaterally (A&P), respiratory distress - *Routine Cardiovascular Exam Present: RRR - *Routine Abdominal Exam Present: soft, normoactive bowel sounds, tenderness. Absent: distended, guarding Comments: some mid abdominal tenderness - *Routine Extremities Exam Absent: edema, calf tenderness - *Routine Neurological Exam Present: alert, oriented X3 became dizzy with deep breathing for lung exam DS: Diagnosis - Discharge Diagnosis (1) Anemia Status: Acute (2) Anemia associated with acute blood loss Status: Acute (3) GI bleed Status: Acute (4) CAD (coronary artery disease) Status: Chronic (5) HTN (hypertension) Status: Chronic (6) Hypokalemia Status: Resolved Discharge Plan - Patient Discharge Instructions ACTIVITY: Continue current activity DIET: continue same diet Patient Instructions: Soft Diet - Follow up Plan Follow up with: Alida Rowland PA [[facility] [employer]] - 1 week Disposition: Home, Self-Retirement Medications: Home Medications Medication Instructions Recorded Confirmed Type atorvastatin 40 mg tablet 40 mg PO HS 07/31/17 08/12/17 History citalopram 20 mg tablet 20 mg PO HS 07/31/17 08/12/17 History lisinopril 5 mg tablet 5 mg PO DAILY 07/31/17 08/12/17 History metoprolol succinate ER 25 mg 25 mg PO DAILY 07/31/17 08/12/17 History tablet,extended release 24 hr mirabegron ER 50 mg 50 mg PO HS 07/31/17 08/12/17 History tablet,extended release 24 hr multivitamin tablet 1 tab PO DAILY 07/31/17 08/12/17 History omeprazole 40 mg capsule,delayed 40 mg PO DAILY 07/31/17 08/12/17 History release Hydrocodone/Acetaminophen 1 each PO Q4-6H PRN 08/12/17 08/12/17 History [Hydrocodone-Acetamin 5-325 mg] Prescriptions/Medication Reconciliation: New Ferrous Sulfate [Ferrous Sulfate 325mg Tablet] 325 mg PO BID #60 tab Vitamin B Complex [B Complex] 1 each PO DAILY #30 tab Continue multivitamin tablet 1 tab PO DAILY mirabegron ER 50 mg tablet,extended release 24 hr 50 mg PO HS lisinopril 5 mg tablet 5 mg PO DAILY metoprolol succinate ER 25 mg tablet,extended release 24 hr 25 mg PO DAILY atorvastatin 40 mg tablet 40 mg PO HS omeprazole 40 mg capsule,delayed release 40 mg PO DAILY citalopram 20 mg tablet 20 mg PO HS Hydrocodone/Acetaminophen [Hydrocodone-Acetamin 5-325 mg] 1 each PO Q4-6H PRN PRN Reason: PAIN Discontinued aspirin 81 mg tablet,delayed release 81 mg PO DAILY No Action cephALEXin [Keflex 500mg Cap] 500 mg PO QID #28 cap
== END 2017-08-14 18:47 | disposition home or self-care (01) ==
LOC: 2ND → OBSVTOIN 14:25
PROVIDERS: ADMIT Family Medicine; ATTEND Family Medicine

== ENCOUNTER → 2017-09-16 10:56 | Outpatient (CLI) | payer MEDICARE, MEDICAID, SELFPAY ==
--- NOTE | 2017-09-16 10:58 | FL_ITS ---
FL small bowel follow through CLINICAL INDICATION: Anemia of unknown etiology ITS.REASON: anemia ORDERING PHYSICIAN: Antony Aj MD PATIENT AGE: 67 years Comparison: None FINDINGS: [employer] exam shows a faint calcific density in the left upper quadrant consistent with small renal stone at 3 mm. There is mild lumbar scoliosis convex left. There is a moderate sized hiatal hernia. Small bowel has an unremarkable appearance. No obstructing lesions or masses or mucosal abnormalities apparent. Spot views of the terminal ileum are unremarkable. Fluoroscopy time: 59 seconds IMPRESSION: Unremarkable small bowel series. Medium sized hiatal hernia
== END ==
PROVIDERS: Family Provider Family Medicine; PCP Family Medicine; Visit Provider Surgery
DX: D64.9 Anemia, unspecified (principal)
CPT/HCPCS: 74250

== ENCOUNTER → 2017-12-17 09:05 | Outpatient (CLI) | payer MEDICARE, MEDICAID, SELFPAY ==
--- NOTE | 2017-12-17 09:07 | XR_ITS ---
XR shoulder LT min 2V HISTORY: Pain, shoulder pain ITS.REASON: grashy, supraspinatus, and axillary views ORDERING PHYSICIAN: Dylon Jacome MD PATIENT AGE: 67 years Comparison: 07/03/2017 FINDINGS: No fracture or dislocation. No lytic or blastic change. There is normal mineralization. The joint spaces are well-preserved. No significant degenerative/arthritic changes. No erosive changes evident. No evidence of subacromial stenosis IMPRESSION: Negative, no acute finding
== END ==
PROVIDERS: PCP Family Medicine; Visit Provider Orthopaedic Surgery
DX: M75.42 Impingement syndrome of left shoulder (principal)
CPT/HCPCS: 73030

== ENCOUNTER → 2017-12-26 07:24 | Outpatient (CLI) | payer MEDICARE, MEDICAID, SELFPAY ==
--- NOTE | 2017-12-26 07:26 | NM_ITS ---
History and Indications: Coronary disease, history of [place], hypertension, hyperlipidemia, family history and fatigue, preop cardiovascular risk assessment Procedure: Patient received a 0.4 mg, the heart rate was 73 bpm resting blood pressure 167/83, with Lexiscan maximum heart rate achieved was 97 bpm is less than 85% of the maximum predicted heart rate and a blood pressure was 149/64. With Lexiscan patient complained of shortness of breath Electrocardiogram: Resting electrocardiogram showed sinus rhythm, with Lexiscan there is less than 1.[address] segment depression noted from the baseline EKG. The EKG portion of the Lexiscan Myoview is nondiagnostic. Cardiac stress and resting SPECT images: Cardiac stress and rest SPECT images were obtained using technetium 99 Myoview 31.8 mCi at stress than 10.1 mCi at rest. Gated SPECT further analysis of segmental wall motion and calculation of the ejection fraction also done. Cardiac stress and rest SPECT images show uniform myocardial activity without segmental perfusion abnormality, computer derived ejection fraction is 55% with no obvious regional wall motion abnormality. Right ventricle is normal size and contractility. Conclusion: 1. The EKG portion of the Lexiscan Myoview is nondiagnostic. 2. No obvious scintigraphic evidence of reversible ischemia seen, computer derived ejection fraction is 55% with no obvious regional wall motion abnormality, right ventricle is normal size and contractility. 3. Normal Lexiscan Myoview study.
--- NOTE | 2017-12-26 07:26 | CA_ITS ---
PROCEDURE: 2-D M-mode and color Doppler study INDICATIONS FOR THE TEST: Chest pain COPD Heart Murmur Tobacco Smoking Palpitations Fatigue Syncope Edemax HypertensionxDiabetes Mellitus Rheumatic Fever SOB PETER Obesity Hyperlipidemiax Family History HD Additional History AZ, CAD Comments: Electrical interference on antony machine during color and spectral doppler. PATIENT INFORMATION HEIGHT: 5'6'' WEIGHT: 180 GENDER: Female B/P: 137/62 2-D/M-MODE INTERPRETATION: 2-D MEASUREMENTS OBSERVED VALUES IN CMS Right Ventricular Dimension (RVDd) 2.3 Interventricular Septum (Thickness)(IVsd) 0.9 Left Ventricular Internal Dimensions(LVIDd) 3.9 Left Ventricular Posterior Wall (Thickness)(LVPWd) 1.0 Aortic Root 3.1 Aortic Cusp Separation 1.6 Left Atrial Dimensions (LAD) 3.3 2D 1. Left atrium is qualitatively mildly enlarged, left ventricle is normal size, there is mild qualitative concentric left ventricular hypertrophy, visually estimated ejection fraction 55% with no obvious regional wall motion abnormality. 2. The right atrium and right ventricle are normal size and contractility. 3. The aortic valve is minimally thickened and fibrosed. 4. The mitral and tricuspid valvular grossly normal. 5. The pulmonic valve is poorly visualized. 6. No significant pericardial effusion noted. DOPPLER INTERROGATION: Doppler interrogation of the aortic, mitral and tricuspid valvular presence of mild mitral and moderate tricuspid regurgitation, calculated right ventricular systolic pressure is 36 mmHg consistent with mild pulmonary hypertension, grade 1 diastolic dysfunction seen with tissue Doppler evidence of raised left atrial pressure. CONCLUSION: 1. Mildly enlarged left atrium, normal left ventricular size, visually estimated ejection fraction 55% with no obvious regional wall motion abnormality, grade 1 diastolic dysfunction seen with tissue Doppler evidence of raised left atrial pressure. 2. Mild mitral and moderate tricuspid regurgitation, calculated right ventricular systolic pressure is 36 mmHg consistent with mild pulmonary hypertension. 3. No significant pericardial effusion noted.
--- NOTE | 2017-12-26 09:24 | HMH.ITSHM ---
myrbetriq omeprazole ferrous sulfate metoprolol citalopram lisinpril atorvastatin
== END ==
PROVIDERS: Family Provider Family Medicine; PCP Family Medicine; Visit Provider Internal Medicine Cardiovascular Disease
DX: I25.10 Atherosclerotic heart disease of native coronary artery without angina pectoris (principal)
CPT/HCPCS: 78452; 93017; 93306; A9502; J2785

== ENCOUNTER → 2018-01-29 15:03 | Outpatient (CLI) | payer MEDICARE, MEDICAID, SELFPAY ==
--- NOTE | 2018-01-29 15:16 | XR_ITS ---
XR chest 2V HISTORY: Shortness of breath, hypertension, former smoker ITS.REASON: HTN ORDERING PHYSICIAN: Dylon Jacome MD PATIENT AGE: 67 years COMPARISON: 01/31/2016 FINDINGS: Cardiac size is upper limits of normal. No evidence of CHF. There is increased density in retrocardiac region consistent with a hiatal hernia. There is hyperinflation with attenuation of the peripheral pulmonary vessels consistent with COPD. No acute bony anomalies. IMPRESSION: COPD, no change with no acute finding. Hiatal hernia
[2018-01-29 15:21] LABS: Basophils % 0.5 % (0.1-2.0); Eosinophils # 0.2 K/mm3 (0.0-0.4); Eosinophils % 2.8 % (0.1-12.0); Hematocrit 40.4 % (37.0-47.0); Hemoglobin 13.5 g/dL (12.2-16.2); Lymphocytes # 2.9 K/mm3 (0.7-4.5); Mean Corpuscular HGB Conc 33.4 g/dL (31.8-35.4); Mean Corpuscular Hemoglobin 30.7 pg (27.0-31.2); Mean Corpuscular Volume 91.7 fl (81-99); Mean Platelet Volume 8.3 fl (7.4-10.4); Monocytes # 0.5 K/mm3 (0.1-1.0); Monocytes % 6.5 % (1.7-9.3); Neutrophils # 4.4 K/mm3 (1.8-7.8); Neutrophils % 54.2 % (37.0-80.0); Platelet Count 289 K/mm3 (142-424); Red Cell Distribution Width 12.5 % (11.5-17.5)
[2018-01-29 16:16] LABS: Anion Gap 10.4 mEq/L (5-15); Blood Urea Nitrogen 12 mg/dL (7-18); Calcium 9.2 mg/dL (8.5-10.1); Carbon Dioxide 32 mmol/L (21.0-32.0); Chloride 101 mmol/L (98-107); Creatinine,Serum 0.75 mg/dL (0.55-1.02); Estimated Glomerular Filt Rate 77 ml/min (>60); GFR (African American) 93 ML/MIN (>60); Glucose 95 mg/dL (74-106); Potassium 4.4 mmoL/L (3.5-5.1); Sodium 139 mmol/L (136-145)
== END ==
PROVIDERS: PCP Family Medicine; Visit Provider Orthopaedic Surgery
DX: Z01.818 Encounter for other preprocedural examination (principal); M75.42 Impingement syndrome of left shoulder; M75.00 Adhesive capsulitis of unspecified shoulder
CPT/HCPCS: 36415; 71046; 80048; 85025

== ENCOUNTER → 2018-06-11 09:23 | Outpatient (CLI) | payer MEDICARE, MEDICAID, SELFPAY ==
--- NOTE | 2018-06-11 09:29 | MM_ITS ---
MM Dig screening mamm BI w/CAD CAD Screening COMPARISON: Digital mammograms with CAD 03/04/2017 and 02/17/2016 INDICATION: There is a history of breast cancer patient's paternal aunt diagnosed in her 40s. TECHNIQUE: Standard CC and MLO images were obtained. R2 CAD reviewed. FINDINGS: The breasts are composed primarily of fat with minimal scattered fibroglandular densities in each breast. There are stable tiny benign-appearing nodular densities near the axillary tails of each breast likely small intramammary nodes. There is no new or suspicious lesion in either breast and there are no suspicious microcalcifications. IMPRESSION: Fibrofatty parenchyma with no suspicious lesion seen BI-RADS Category: 2 Benign Finding(s) RECOMMENDED FOLLOW-UP: 1YR - 1 YEAR FOLLOW-UP (A letter has been sent to the patient regarding results of the study.)
== END ==
PROVIDERS: PCP Family Medicine; Visit Provider Family Medicine
DX: Z12.31 Encounter for screening mammogram for malignant neoplasm of breast (principal)
CPT/HCPCS: 77067

== ENCOUNTER → 2018-06-13 11:18 | Outpatient (CLI) | payer MEDICARE, MEDICAID, SELFPAY ==
[2018-06-13 12:29] LABS: Blood Urea Nitrogen 11 mg/dL (7-18); Creatinine,Serum 0.89 mg/dL (0.55-1.02); Estimated Glomerular Filt Rate 63 ml/min (>60); GFR (African American) 76 ML/MIN (>60)
== END ==
PROVIDERS: Visit Provider Family Medicine
DX: R22.1 Localized swelling, mass and lump, neck (principal)
CPT/HCPCS: 36415; 82565; 84520

== ENCOUNTER → 2018-06-16 10:20 | Outpatient (CLI) | payer MEDICARE, MEDICAID, SELFPAY ==
--- NOTE | 2018-06-16 10:23 | CT_ITS ---
CT soft tissue neck w con Ordering Physician: Antony Patino MD Patient Age: 67 years: Female HISTORY: ITS.REASON: NECK MASS TECHNIQUE: Helical CT scanning performed the neck following bolus administration 75 cc, Optiray 350 .. Axial sagittal and coronal reconstructions performed on CT workstation. All CT scans at this facility used one or more dose reduction techniques , viz: automatic exposure control, ma/Kv adjustment per patient's size, (including targeted exam where dose matched to the indication; i.e. head); or iterative reconstruction technique COMPARISON : Ultrasound right neck 2016 FINDINGS The palpable areas at the posterior left neck appear to correlate with two lipomas. The more lateral of these lipomas measures up to 18 mm AP, X 11 mm wide, 23 mm height The more medial of the lipomatous is more difficult to discern on CT but I believe it is evident on sagittal image 34 measuring 18 mm height 14 mm AP.. These would be compatible size and appearance with the previous here ultrasound 2016. No prominent change since that prior 2016 ultrasound Otherwise No significant mass or nodule is seen at the posterior neck.. The muscle planes appear symmetric. There are some scattered small nodes in the anterior and posterior cervical chain but none these measure over 11 mm. unremarkable. Not of significance.... No significant neck mass otherwise seen. Submandibular gland and parotid glands appear satisfactory. Generous parotid glands bilaterally.. Carotid bifurcations are widely patent bilaterally with no significant stenosis I would note anatomical variations with a extremely medial course of both carotids.- For example right carotid is at midline and and resides immediately posterior to the hypopharynx and more inferiorly it indents the posterior right piriform sinus. The hypopharynx is slightly displaced to the left in part due to the right carotid vessels as well as the very large right jugular vein. This anatomy should be noted particularly with intubation or ENT procedure... The right thyroid enlarged & contains nodules. The largest measuring 1 cm x 0.6 cm posterior right lobe thyroid. I would note that the jugular veins are quite prominent bilaterally with with larger right jugular measuring up to 2.7 cm diameter IMPRESSION...... 1. The 2 palpable areas at the posterior neck,-correlate with 2 benign lipomas. Each measuring up to roughly 2 cm.. 2. Otherwise no significant mass or adenopathy neck. Scattered moderate size nodes throughout the anterior cervical chain with a few small nodes posterior cervical chain. 3. Right thyroid nodule lower pole right lobe. 1 cm .. Warrants thyroid ultrasound follow-up 4. Anatomical note:. ... carotid bifurcation resides at midline posterior to the hypopharynx and actually indents the piriform sinuses and hypopharynx. CT should be reviewed prior to any ENT procedure; or if intubation should be cautious in this regard. ... Large distended appearing internal jugular veins bilaterally incidental noted. Right internal jugular measures 2.7 cm diameter
== END ==
PROVIDERS: PCP Family Medicine; Visit Provider Family Medicine
DX: R22.1 Localized swelling, mass and lump, neck (principal)
CPT/HCPCS: 70491

== ENCOUNTER → 2018-07-03 09:24 | Outpatient (CLI) | payer MEDICARE, MEDICAID, SELFPAY ==
--- NOTE | 2018-07-03 09:25 | US_ITS ---
US thyroid HISTORY: Follow-up thyroid nodule, abnormal CT ITS.REASON: THYROID NODULE ORDERING PHYSICIAN: Antony Patino MD PATIENT AGE: 67 years Comparison: None FINDINGS: There is a nodule in the its most measuring 7 x 3 mm. The nodule is slightly hypoechoic and well-circumscribed. The right lobe is 4.8 x 1.8 x 1.4 cm and contains a 19 x 10 mm slightly hypoechoic nodule in the upper pole. 14 x 15 mm mid polar hypoechoic nodule with internal decrease echogenicity noted. Other smaller nodules are doesn't. Overall, the 2 dominant nodules are not significantly changed from a previous ultrasound of 02/17/2016. The left lobe is 3.6 x 1.2 x 1.3 cm. No dominant nodules evident. IMPRESSION: Multiple right-sided thyroid nodules within an enlarged right lobe of the thyroid gland. These are not significant change from 02/17/2016 ultrasound. Annual follow-up recommended
== END ==
PROVIDERS: PCP Family Medicine; Visit Provider Family Medicine
DX: E04.1 Nontoxic single thyroid nodule (principal)
CPT/HCPCS: 76536

== ENCOUNTER → 2018-08-18 13:52 | Outpatient (CLI) | payer MEDICARE, MEDICAID, SELFPAY ==
[2018-08-18 14:13] LABS: Basophils % 0.6 % (0.1-2.0); Eosinophils # 0.2 K/mm3 (0.0-0.4); Eosinophils % 2.4 % (0.1-12.0); Hemoglobin 13.9 g/dL (12.2-16.2); Lymphocytes # 2.7 K/mm3 (0.7-4.5); Lymphocytes % 39.9 % (10-50); Mean Corpuscular HGB Conc 34.7 g/dL (31.8-35.4); Mean Corpuscular Hemoglobin 31.5 pg (27.0-31.2); Mean Platelet Volume 7.9 fl (7.4-10.4); Monocytes # 0.4 K/mm3 (0.1-1.0); Monocytes % 5.3 % (1.7-9.3); Neutrophils # 3.5 K/mm3 (1.8-7.8); Neutrophils % 51.7 % (37.0-80.0); Platelet Count 254 K/mm3 (142-424); Red Blood Count 4.39 M/mm3 (4.20-5.40); Red Cell Distribution Width 12.8 % (11.5-17.5); White Blood Count 6.7 K/mm3 (4.8-10.8)
[2018-08-18 15:26] LABS: Anion Gap 14.7 mEq/L (5-15); Blood Urea Nitrogen 14 mg/dL (7-18); Calcium 9.6 mg/dL (8.5-10.1); Carbon Dioxide 28 mmol/L (21.0-32.0); Chloride 100 mmol/L (98-107); Creatinine,Serum 0.79 mg/dL (0.55-1.02); Estimated Glomerular Filt Rate 72 ml/min (>60); GFR (African American) 87 ML/MIN (>60); Glucose 93 mg/dL (74-106); Potassium 4.7 mmoL/L (3.5-5.1); Sodium 138 mmol/L (136-145)
== END ==
PROVIDERS: Visit Provider Otolaryngology
DX: Z01.818 Encounter for other preprocedural examination (principal); R59.9 Enlarged lymph nodes, unspecified
CPT/HCPCS: 36415; 80048; 85025; 93005

== ENCOUNTER → 2019-01-13 12:18 | Outpatient (CLI) | payer MEDICARE, MEDICAID, SELFPAY ==
--- NOTE | 2019-01-13 12:26 | XR_ITS ---
PROCEDURE: XR CHEST 2V CLINICAL HISTORY: DISSEMINATED CHORIORETINAL INFLAMMATION B-EYES, HTN, CAD Hypertension, coronary artery disease COMPARISON: CXR CHEST(2 VIEWS-NOT PORTABLE) from 10/28/2013 CXR CHEST(2 VIEWS-NOT PORTABLE) from 01/31/[address] [facility] [address] CHEST W/WO CONTRAST from 03/04/2017 CXR2V XR chest 2V from 01/29/2018 FINDINGS: Normal heart size. Moderate-sized hiatal hernia is noted with an air-fluid level. The lungs are clear without infiltrates, suspicious nodules, or pleural effusions. No acute bony abnormalities. IMPRESSION: No acute finding. Hiatal hernia Dictated by: José Cobb MD 01/13/2019 12:57 Electronically signed by José Cobb MD in [facility] 01/13/2019 12:57
[2019-01-13 13:36] LABS: Basophils % 0.5 % (0.1-2.0); Eosinophils # 0.2 K/mm3 (0.0-0.4); Eosinophils % 2.4 % (0.1-12.0); Hematocrit 41.7 % (37.0-47.0); Hemoglobin 13.8 g/dL (12.2-16.2); Lymphocytes # 2.4 K/mm3 (0.7-4.5); Lymphocytes % 33.3 % (10-50); Mean Corpuscular HGB Conc 33.1 g/dL (31.8-35.4); Mean Corpuscular Hemoglobin 30.4 pg (27.0-31.2); Mean Corpuscular Volume 91.8 fl (81-99); Mean Platelet Volume 7.7 fl (7.4-10.4); Monocytes # 0.4 K/mm3 (0.1-1.0); Monocytes % 5.9 % (1.7-9.3); Neutrophils # 4.2 K/mm3 (1.8-7.8); Neutrophils % 57.8 % (37.0-80.0); Platelet Count 306 K/mm3 (142-424); Red Blood Count 4.55 M/mm3 (4.20-5.40); Red Cell Distribution Width 12.5 % (11.5-17.5); White Blood Count 7.3 K/mm3 (4.8-10.8)
[2019-01-13 16:12] LABS: Erythrocyte Sedimentation Rate 17 mm/hr (0-30)
[2019-01-13 16:21] LABS: Alanine Aminotransferase 27 U/L (12-78); Albumin Level 3.8 gm/dL (3.4-5.0); Alkaline Phosphatase 93 U/L (46-116); Anion Gap 17.3 mEq/L (5-15); Aspartate Amino Transferase 18 U/L (15-37); Bilirubin,Direct 0.1 mg/dL (0.0-0.2); Bilirubin,Indirect 0.2 mg/dL (0.0-0.9); Bilirubin,Total 0.3 mg/dL (0.2-1.0); Blood Urea Nitrogen 15 mg/dL (7-18); Calcium 9.7 mg/dL (8.5-10.1); Carbon Dioxide 25 mmol/L (21.0-32.0); Chloride 100 mmol/L (98-107); Creatinine,Serum 0.79 mg/dL (0.55-1.02); Estimated Glomerular Filt Rate 72 ml/min (>60); GFR (African American) 87 ML/MIN (>60); Glucose 115 mg/dL (74-106); Potassium 4.3 mmoL/L (3.5-5.1); Sodium 138 mmol/L (136-145); Total Protein,Serum 6.9 gm/dL (6.4-8.2)
[2019-01-13 16:36] LABS: C-Reactive Protein < 0.2 mg/dL (0.0-0.9)
[2019-01-15 06:13] LABS: Rapid Plasma Reagin Ab Titer Non Reactive (NonRea<1:1); Treponema pallidum Ab (FTA-ABS Non Reactive (Non Reactive)
[2019-01-19 14:27] LABS: QuantiFERON-TB Gold Plus Positive (Negative)
== END ==
PROVIDERS: PCP Family Medicine; Visit Provider Ophthalmology
DX: H30.10 Unspecified disseminated chorioretinal inflammation (principal)
CPT/HCPCS: 36415; 71046; 80048; 80076; 85025; 85651; 86140; 86480; 86592; 86780

== ENCOUNTER → 2019-05-25 07:54 | Outpatient (CLI) | payer MEDICARE, MEDICAID, SELFPAY ==
--- NOTE | 2019-05-25 | CA_ITS ---
APPROVED REPORT Exam: Pharmacologic Technologist: Ana Cisneros Ht: 5 ft 6 in Wt: 189 lbs BSA: 1.95 m2 HR: 76 bpm BP: 110/69 mmHg Indications: Angina, CAD, Dyspnea Medical History Medications: Lisinopril,,,,, Omeprazole,,,,, Aspirin,,,,, Metoprolol,,,,, Ferrous sulfate,,,,, Atorvastatin,,,,, Citalopram,,,,, Vitamin B,,,,, Multivitamin,,,,, Isoniazid,,,,, RIfampin,,,,, Stress Test Details Test: LEXISCAN HR Resting HR: 77 bpm Max Heart Rate (APMHR): 151 bpm Max HR Achieved: 104 bpm Target HR (85% APMHR): 128 bpm % of APMHR: 68 Recovery HR: 86 bpm BP Resting BP: 110.0/69.0 mmHg Max BP: 138.0/63.0 mmHg Recovery BP: 133.0/62.0 mmHg ECG Clinical Exercise duration: 04:02 min Highest Stage Achieved: Stress ECG Conclusion Resting ECG: Sinus rhythm Lexiscan portion completed. Patient complained of shortness of breath during preak infusion. Symptoms: Shortness of breath during preak infusion. Resolved in recovery. No chest pain. Arrhythmias/Ectopy: Occasional PAC ST-T Changes: Less than 1.[address] depression. Conclusion: Images to follow Test Summary RECOVERY 04:00 . . 90 . 138/ 63 . . REST 02:21 . . 77 . 110/ 69 . . Stage 1 01:00 . . 99 . . . . Stage 2 01:00 . . 101 . 113/ 72 . . Stage 3 01:00 . . 97 . 122/ 62 . . Stage 4 01:00 . . 92 . . . . Stage 4 01:02 . . 91 . . . Stop exercise at 04:02 RECOVERY 01:00 . . 89 . 120/ 65 . . RECOVERY 02:00 . . 92 . 120/ 65 . . RECOVERY 03:00 . . 89 . 120/ 65 . . RECOVERY 04:00 . . 90 . 138/ 63 . . RECOVERY 05:00 . . 87 . 138/ 63 . . RECOVERY 05:28 . . 87 . 133/ 62 . . Electronically signed by : Yrn Whiting, 05/25/2019 19:40:28
--- NOTE | 2019-05-25 07:54 | NM_ITS ---
APPROVED REPORT Exam: Nuclear Stress Test Indication: SOB, CAD, Fatigue, Dizziness, HTN, High cholesterol, Family history Patient Location: Outpatient Stress Tech: Ana Cisneros NM Tech:Hattie Fletcher, ARRT, RT (R)(N) Ht: 5 ft 6 in Wt: 189 lbs Bra Size: 40C HR: 76 bpm BP: 110/69 mmHg BSA: 1.95 m2 BMI: 30.5 History: SOB, CAD, Fatigue, Dizziness, HTN, High cholesterol, Family history Procedure: Patient received a 0.4 mg of intravenous Lexiscan, resting heart rate 74 bpm, resting blood pressure 110/69 mmHg, with Lexiscan maximum heart rate achived was 100 bpm which is Less than 85 % of the maximum predicted heart rate and blood pressure was 113/72 mmHg. With Lexiscan, patient denied any complaint of chest pain. Electrocardiogram Resting electrocardiogram showed sinus rhythm, with Lexiscan there is less than 1.[address] segment depression noted from the baseline EKG. The EKG portion of the Lexiscan Myoview is nondiagnostic. Cardiac Stress and Resting SPECT Images: Cardiac Stress and Resting SPECT images were obtained using technetium 99m Myoview 31.6 mCi stress and 10.11 mCi at rest. Gated SPECT for analysis of segmental wall motion and calculation of the ejection fraction also done. Cardiac stress and resting SPECT images show uniform myocardial activity without segmental perfusion abnormality, computer derived ejection fraction is 65% with no regional wall motion abnormality, right ventricle is normal size and contractility. Conclusion: 1. The EKG portion of the Lexiscan Myoview is nondiagnostic. 2. No scintigraphic evidence of reversible ischemia seen, computer derived ejection fraction is 65% with no regional wall motion abnormality, right ventricle is normal size and contractility. 3. Normal Lexiscan Myoview study. Electronically signed by : Yrn Whiting, 05/25/2019 19:42:57
--- NOTE | 2019-05-25 07:54 | CA_ITS ---
APPROVED REPORT Accounting Lecturer: JOHNNIE Laterality: Bilateral Study Quality: Good Indications: atypical angina,HTN Doppler Spectral Velocity Analysis dICA (R) 74.50/24.60 cm/s dICA (L) 84.70/36.70 cm/s Monica (R) 93.00/28.00 cm/s Monica (L) 89.70/33.90 cm/s pICA (R) 94.80/26.90 cm/s pICA (L) 65.30/22.40 cm/s dCCA (R) 87.60/23.10 cm/s dCCA (L) 94.20/23.80 cm/s pCCA (R) 75.70/19.50 cm/s pCCA (L) 50.00/19.30 cm/s Vert (R) 69.50/18.70 cm/s Vert (L) 47.10/12.00 cm/s ICA/CCA 1.08 ICA/CCA 0.95 Findings Duplex evaluation demonstrates stenosis of the right proximal internal carotid artery <20% with PSV <140 cm/sec, EDV <100 cm/sec, and IC/CC Ratio <4.0.Duplex evaluation demonstrates stenosis of the left proximal internal carotid artery <20% with PSV <140 cm/sec, EDV <100 cm/sec, and IC/CC Ratio <4.0.Antegrade flow seen bilateral vertebral arteries. Conclusion No increased velocities to suggest hemodynamically significant stenosis in either internal carotid artery. Electronically signed by : José Cobb MD 05/26/2019 18:36:19
--- NOTE | 2019-05-25 08:25 | HMH.ITSHM ---
Current Home Medications as stated by this patient Neha Johnson or pharmacy sales representative. []VITAMIN B RIFAMPIN OMEPRAZOLE MULTIVITAMIN METOPROLOL LISINOPRIL ISONIAZID FUROSEMIDE IRON CITALOPRAM ATORVASTATIN ASA
== END ==
PROVIDERS: PCP Family Medicine; Visit Provider Internal Medicine Cardiovascular Disease
DX: E78.5 Hyperlipidemia, unspecified (principal); I10 Essential (primary) hypertension; I25.10 Atherosclerotic heart disease of native coronary artery without angina pectoris; I27.20 Pulmonary hypertension, unspecified; R06.00 Dyspnea, unspecified; R61 Generalized hyperhidrosis; Z22.7 Latent tuberculosis; R20.0 Anesthesia of skin
CPT/HCPCS: 78452; 93017; 93880; A9502; J2785

== ENCOUNTER → 2020-01-11 07:55 | Outpatient (CLI) | payer MEDICARE, SELFPAY ==
--- NOTE | 2020-01-11 07:59 | CT_ITS ---
PROCEDURE: CT LUNG SCREENING CLINICAL INDICATION: H/O NICOTINE DEPENDENCE former smoker Quit smoking 14 years ago 30-73.5 pack year smoking history CAD prior 06/19/16 COMPARISON: CT LDCTLCAS LDCT FOR LUNG CA SCREEN from 06/19/[address] [facility] [address] CHEST W/WO CONTRAST from 03/04/2017 TECHNIQUE: The exam was performed on a GE Light Speed [address] scanner using 2.90 mGy CTDI. A low dose helical CT CHEST was performed on a multi-detector scanner. All CT scans at the facility use one or more dose reduction, viz: automated exposure control, ma/kV adjustment per patient size (including targeted exams where dose is matched to indication, i.e. head), or iterative reconstruction technique. The LDCT was performed in a facility that meets the criteria for the screening program. Data regarding this exam was submitted to ACR which is an approved registry. The order for this exam indicates that it came as a result of a lung cancer screening counseling shard decision-making visit that included all the elements required of such a visit including smoking cessation. The radiologist interpreting this exam meets the CMS criteria for the LDCT lung cancer screening program. The exam is reported using the Lung-RADS classification scale and reported to the ACR registry. NOTE: This study was performed for the specific purposes of lung cancer screening and is not an alternative to diagnostic chest CT. RADIATION DOSE: CTDI vol(CT dose Index-volume) = 2.90mG DLP (Dose Length Product) = 108.64 mGcm FINDINGS: COPD with centrilobular and paraseptal emphysema. Scattered areas of scarring. Stable 4 mm nodule right lower lobe. There is some patchy ground-glass attenuation in the right upper lobe centrally nonspecific not significantly changed. There is mild diffuse bronchial thickening. There is a small area of ground-glass attenuation in the left lower lobe at 8 mm which is nonspecific slightly more prominent from the previous study but overall not particular suspicious. OTHER FINDINGS: Large hiatal hernia. Coronary artery calcifications. Hyperdensity is present in the hernia and may be due to ingested medication. There are degenerative changes in the thoracic spine with mild thoracic scoliosis convex right IMPRESSION: Lung-RADS Category 2 Benign Appearance or Behavior Follow-up: Continue annual screening with LDCT in 12 months Dictated by: José Cobb MD 01/17/2020 10:34 José Cobb MD in [facility] 01/17/2020 10:34
--- NOTE | 2020-01-11 08:00 | MM_ITS ---
PROCEDURE: MM DIG SCREENING MAMM BI W/CAD Referring Doctor: Alida Rowland Patient Age:69Y CLINICAL INDICATION: SCREENING 69-year-old. No hormones but no new complaints Family history: Paternal aunt with breast cancer age 40 COMPARISON: [facility] DMSB DIGITAL MAMM-SCREEN BILATERAL from 07/02/2011 MG DXUAVL MAMM DX-UNI.ADD.VIEWS-LT from 08/17/2011 [facility] D[facility] DIG MAMM-SCREEN KENNY from 11/09/2013 MG DMSB DIG MAMM-SCREEN KENNY from 12/27/2014 MG DMSB DIG MAMM-SCREEN KENNY from 02/17/2016 MG DMSB DIG MAMM-SCREEN KENNY W/CAD from 03/04/2017 [facility] MM Dig screening mamm BI w/CAD from 06/11/2018 TECHNIQUE: Standard CC and MLO images were obtained. R2 CAD reviewed. Bilateral digital breast tomosynthesis included. FINDINGS: Minimal residual fibroglandular elements are seen bilaterally most notable towards extending superiorly upper-outer quadrant both breast. Overall lower density breast with mild fatty replacement. No suspicious calcifications Right breast no new findings of concern Minor areas of asymmetric density appear stable compared to multiple previous studies Left breast: No new findings of concern Minor areas of asymmetric density appear stable compared to multiple previous studies Stable small axillary and deep intramammary nodes bilaterally again observed the IMPRESSION: Stable bilateral mammogram . stable minor asymmetry with No significant new areas of concern Bilateral follow-up 1 year recommended BI-RAD Category: 2 Benign Finding(s) FOLLOW-UP: 1YR 1 Year Follow-up (A letter has been sent to the patient regarding results of the study.) Dictated by: Titus Fu MD 01/13/2020 10:51 Titus Fu MD in [facility] 01/13/2020 10:51
--- NOTE | 2020-01-11 08:00 | XR_ITS ---
PROCEDURE: XR DEXA AXIAL SKELETON CLINICAL HISTORY: POST MENOPAUSAL COMPARISON: No exams were available for comparison FINDINGS: The right hip BMD is 0.748 with a T-score of -0.9. The left hip BMD is 0.850 with a T-score of -0.8. The lumbar spine BMD is 1.072 with a T-score of 0.2. IMPRESSION: This patient is considered normal according to the World Health Organization criteria. Fracture risk is low. Based on these results a follow-up exam is recommended in 2 year. Dictated by: José Cobb MD 01/12/2020 08:14 José Cobb MD in [facility] 01/12/2020 08:14
== END ==
PROVIDERS: PCP Family Medicine; Visit Provider Physician Assistant
DX: Z87.891 Personal history of nicotine dependence (principal); Z78.0 Asymptomatic menopausal state; Z12.31 Encounter for screening mammogram for malignant neoplasm of breast
CPT/HCPCS: 77063; 77067; 77080

== ENCOUNTER → 2020-01-20 12:48 | Outpatient (CLI) | payer MEDICARE, SELFPAY ==
--- NOTE | 2020-01-20 12:52 | XR_ITS ---
PROCEDURE: XR HAND LT MIN 3V CLINICAL INDICATION: left hand trigger finger COMPARISON: No exams were available for comparison FINDINGS: No fracture or dislocation. No lytic or blastic change. There is normal mineralization. The joint spaces are well-preserved. No significant degenerative/arthritic changes. No erosive changes evident. Other findings:None. IMPRESSION: No acute findings. Dictated by: José Cobb MD 01/20/2020 16:30 José Cobb MD in [facility] 01/20/2020 16:30
== END ==
PROVIDERS: PCP Family Medicine; Visit Provider Orthopaedic Surgery
DX: M65.30 Trigger finger, unspecified finger (principal)
CPT/HCPCS: 73130

== ENCOUNTER → 2020-02-26 06:30 | Outpatient (CLI) | payer MEDICARE, MEDICAID, SELFPAY ==
--- NOTE | 2020-02-26 06:31 | NM_ITS ---
APPROVED REPORT Exam: Nuclear Stress Test Indication: CAD, 3 STENTS, HX WA, HTN, HYPERLIPIDEMIA, FM HX., ANGINA, SOB, FATIGUE Patient Location: Outpatient Stress Tech: Katiuska Alstonnkson NM Tech:Joi Toth, JUAN RT (R)(N)(M) Ht: 5 ft 5 in Wt: 185 lbs Bra Size: D HR: 50 bpm BP: 133/73 mmHg BSA: 1.91 m2 BMI: 30.7 History: CAD, 3 STENTS, HX WA, HTN, HYPERLIPIDEMIA, FM HX., ANGINA, SOB, FATIGUE Procedure: Patient received a 0.4 mg of intravenous Lexiscan, resting heart rate 50 bpm, resting blood pressure 133/73 mmHg, with Lexiscan maximum heart rate achived was 89 bpm which is Less than 85 % of the maximum predicted heart rate and blood pressure was 138/79 mmHg. With Lexiscan, patient denied any complaint of chest pain. Electrocardiogram Resting electrocardiogram showed sinus rhythm, with Lexiscan there is less than 1.[address] segment depression noted from the baseline EKG. The EKG portion of the Lexiscan Myoview is nondiagnostic. Cardiac Stress and Resting SPECT Images: Cardiac Stress and Resting SPECT images were obtained using technetium 99m Myoview 31.5 mCi stress and 10.28 mCi at rest. Gated SPECT for analysis of segmental wall motion and calculation of the ejection fraction also done. Prone images were also obtained. Cardiac stress and resting SPECT images show uniform myocardial activity without segmental perfusion abnormality, computer derived ejection fraction is 60% with no regional wall motion abnormality, right ventricle is mildly enlarged with normal contractility. Conclusion: 1. The EKG portion of the Lexiscan Myoview is nondiagnostic. 2. No scintigraphic evidence of reversible ischemia seen, computer derived ejection fraction is 60% with no regional wall motion abnormality, right ventricle is mildly enlarged with normal contractility. Electronically signed by : Yrn Whiting, 02/26/2020 12:25:21
--- NOTE | 2020-02-26 06:31 | CA_ITS ---
APPROVED REPORT EXAM: Comprehensive 2D, Doppler, and color-flow Echocardiogram Automotive Service Porter: Griselda Woody RT(R) Ht: 5 ft 10 in Wt: 185lbs BSA: 2.02 BP: 143/62 mmHg Indications: CP, ex smoker, edema, HTN, SOB, hyperlipidemia, hx [place], CAD, stents 2D Dimensions LVOT 1.98 cm (M/F) 1.5-2.5 LVEF (Estrada's) 63.60 % F: 54 - 74 LV Volume 88.40 mL F: 46 - 106 LV Volume Index 43.76 mL/m2 F: 29 - 61 M-Mode Dimensions RVDd 2.90 cm (0.9-2.6) LA Diam 2.51 cm (1.9-4.0) LVDd 4.72 cm (3.5-5.7) Ao Diam 2.62 cm (2.0-3.7) LVDs 3.51 cm (3.5-5.7) IVSd 0.86 cm (0.6-1.1) PWd 0.97 cm (0.6-1.1) EF (Teich) 50.50% FS 25.60% EDV (Teich) 103.40 mL ESV (Teich) 51.20 mL LV Diastology E Decel Time 227.00 (160-240 msec) E/A Ratio 0.9 MED E' 4.90 (< 7 cm/sec) E'/MED E' Ratio 18.71 (>14) LAT E' 7.50 (<10 cm/sec) E/LAT E' Ratio 12.23 (>14) Mitral Valve MV E Max Dmitry. 92.00 (40-130 cm/s) MV A Velocity 102.00 (40-130 cm/s) E/A Ratio 0.90 MV Decel. Time 227.00 (160-240 ms) MV PHT 66.00 ms Tricuspid Valve TR P. Velocity 317.00 cm/s RAP Estimate 15.00 mmHg RVSP 55.20 mmHg Left Ventricle Left atrium is mildly enlarged, left ventricle is normal size, mild concentric left ventricular hypertrophy, visually estimated ejection fraction 55% with no regional wall motion abnormality, grade 1 diastolic dysfunction seen with tissue Doppler evidence of raise left atrial pressure. Right Ventricle Right atrium and right ventricle are mildly enlarged with normal contractility. Aortic Valve Aortic valve is thickened and calcified leaflet chordae display good mobility, there is no aortic stenosis or aortic insufficiency. Mitral Valve Mitral valve is minimally thickened, there is mild mitral regurgitation. Tricuspid Valve Tricuspid valve grossly normal, there is mild tricuspid regurgitation, calculated right ventricular systolic pressure is 43 mmHg. Pulmonic Valve Pulmonic valve is poorly visualized. Great Vessels Aortic root is normal size. Pericardium No significant pericardial effusion noted. Conclusion 1. Mild biatrial enlargement, normal left ventricular size, mild concentric left ventricular hypertrophy, visually estimated ejection fraction 55% with no regional wall motion abnormality grade 1 diastolic dysfunction seen with tissue Doppler evidence of raise left atrial pressure. 2. Mildly enlarged right ventricle with normal contractility. 3. Mild mitral and tricuspid regurgitation, calculated right ventricular systolic pressure is 43 mmHg. 4. No significant pericardial effusion noted. Electronically signed by : Yrn Whiting, 02/26/2020 11:12:15
--- NOTE | 2020-02-26 06:31 | CA_ITS ---
APPROVED REPORT Exam: Pharmacologic Technologist: Erum Gant, Ht: 5 ft 6 in Wt: 185 lbs BSA: 1.93 m2 HR: 50 bpm BP: 133/73 mmHg Rhythm: SINUS RAVI Medical History Medical History: HTN, Hyperlipidemia, Diabetic ??? Noninsulin Medications: Lisinopril,,,,, Omeprazole,,,,, Metoprolol,,,,, Asa,,,,, Atorvastatin,,,,, Iron,,,,, Lasix,,,,, PaROXETINE,,,,, MVA,,,,, OxYbutynin,,,,, Cardiac Risk Factors: HTN, Hyperlipidemia, Diabetes (non-insulin), FHX of CAD, Smoking Stress Test Details Test: LEXISCAN HR Resting HR: 56 bpm Max Heart Rate (APMHR): 150 bpm Max HR Achieved: 90 bpm Target HR (85% APMHR): 127 bpm % of APMHR: 60 Recovery HR: 80 bpm BP Resting BP: 133.0/73.0 mmHg Max BP: 145.0/72.0 mmHg Recovery BP: 145.0/72.0 mmHg ECG Resting ECG: SINUS RAVI Clinical Exercise duration: 04:02 min Highest Stage Achieved: Exercise capacity: 1.0 METs Stress ECG Conclusion LEXISCAN PORTION COMPLETED. PATIENT C/O FEELING FLUSH DURING PEAK INFUSION. NO CP. NO SOA. C/O FEELING FLUSHED. RESOLVED IN RECOVERY. OCCASIONAL PAC NOTED. LESS THAN 1.5MM ST DEPRESSION. IMAGES TO FOLLOW Test Summary . . Myoview Injected . . . . Stop exercise at 04:02 . . . . Electronically signed by : Yrn Whiting, 02/26/2020 12:22:20
== END ==
PROVIDERS: PCP Family Medicine; Visit Provider Internal Medicine Cardiovascular Disease
DX: E78.2 Mixed hyperlipidemia (principal); I10 Essential (primary) hypertension; I25.10 Atherosclerotic heart disease of native coronary artery without angina pectoris; I27.20 Pulmonary hypertension, unspecified; R06.09 Other forms of dyspnea; R07.89 Other chest pain
CPT/HCPCS: 78452; 93017; 93306; A9502; J2785

== ENCOUNTER → 2020-03-19 08:59 | Outpatient (CLI) | payer MEDICARE, MEDICAID, SELFPAY ==
[2020-03-19 09:11] LABS: Basophils # 0.1 K/mm3 (0-0.2); Basophils % 1.2 % (0.1-2.0); Eosinophils # 0.4 K/mm3 (0.0-0.4); Eosinophils % 7.1 % (0.1-12.0); Hematocrit 41.9 % (37.0-47.0); Hemoglobin 14.1 g/dL (12.2-16.2); Lymphocytes # 1.9 K/mm3 (0.7-4.5); Lymphocytes % 35.2 % (10-50); Mean Corpuscular HGB Conc 33.8 g/dL (31.8-35.4); Mean Corpuscular Hemoglobin 31.4 pg (27.0-31.2); Mean Corpuscular Volume 93.1 fl (81-99); Mean Platelet Volume 8.9 fl (7.4-10.4); Monocytes # 0.3 K/mm3 (0.1-1.0); Monocytes % 5.9 % (1.7-9.3); Neutrophils # 2.8 K/mm3 (1.8-7.8); Neutrophils % 50.6 % (37.0-80.0); Platelet Count 224 K/mm3 (142-424); Red Cell Distribution Width 13.3 % (11.5-17.5); White Blood Count 5.5 K/mm3 (4.8-10.8)
[2020-03-19 09:44] LABS: Chloride 103 mmol/L (98-107); Sodium 139 mmol/L (136-145)
[2020-03-19 09:45] LABS: Potassium 4.5 mmoL/L (3.5-5.1)
[2020-03-19 09:47] LABS: Alanine Aminotransferase 20 U/L (12-78); Albumin Level 3.8 g/dl (3.5-5.0); Albumin/Globulin Ratio 1.7 (1.1-1.8); Alkaline Phosphatase 92 U/L (38-126); Anion Gap 10.5 mEq/L (5-15); Aspartate Amino Transferase 24 U/L (14-36); Bilirubin,Total 0.4 mg/dl (0.2-1.3); Blood Urea Nitrogen 8 mg/dl (7-17); Calcium 9.5 mg/dl (8.4-10.2); Carbon Dioxide 30 mmol/L (22.0-30.0); Estimated Glomerular Filt Rate 71 ml/min (>60); GFR (African American) 86 ML/MIN (>60); Globulin 2.3 g/dL (1.3-3.2); Glucose 107 mg/dl (74-100); Total Protein,Serum 6.1 g/dl (6.3-8.2)
[2020-03-19 09:55] LABS: Coronavirus 19 IgG Antibody Negative (Negative); Coronavirus 19 IgM Antibody Negative (Negative)
== END ==
PROVIDERS: Visit Provider Orthopaedic Surgery
DX: Z01.818 Encounter for other preprocedural examination (principal); M66.242 Spontaneous rupture of extensor tendons, left hand; M72.0 Palmar fascial fibromatosis [Dupuytren]; M65.342 Trigger finger, left ring finger
CPT/HCPCS: 36415; 80053; 85025; 86328

== ENCOUNTER 2020-03-21 08:39 | Day surgery (SDC) | payer MEDICARE, MEDICAID, SELFPAY ==
[2020-03-16 11:01] VITALS: BMI 29.8
--- NOTE | 2020-03-21 09:07 | XR_ITS ---
PROCEDURE: XR CHEST 2V CLINICAL HISTORY: pre-op, high blood pressure Hypertension COMPARISON: CR CXR CHEST(2 VIEWS-NOT PORTABLE) from 01/31/[address] CHEST W/WO CONTRAST from 03/04/2017 DX CXR2V XR chest 2V from 01/29/2018 CR XR CHEST 2V from 01/13/2019 FINDINGS: The cardiomediastinal silhouette and pulmonary vascularity are within normal limits. There is a moderate hiatal hernia. The inferior most aspect of the CP angles are cut off on image. Lungs are clear of acute infiltrate. Degenerative changes thoracic spine. IMPRESSION: No definite acute finding. Moderate-sized hiatal hernia. Dictated by: José Cobb MD 03/21/2020 09:43 José Cobb MD in [place] 03/21/2020 09:43
[2020-03-21 09:24] VITALS: BP 160/62; PULSE 65; RESP 18; TEMP 36.4; O2SAT 94
--- NOTE | 2020-03-21 09:59 | P.PN_ITS ---
[facility] Anesthesia Checklist - Patient Identification Patient Identification: Arm Band, Verbal (Name & ) - Structural Data Admitted From: Home Planned Operative Procedure/s: Left 4th digit trigger finger release Consent for Planned Operative Procedure(s) Verified: Yes Verified Documents: Surgical Consent, History and Physical - NPO Status Verified Time NPO: 21:00 - Chart Verification Results Verified: CBC, BMP - Additional verifications Anesthesia Reactions: No Hx Blood Transfusions: No Blood Transfusion Reaction: No - Airway Assessment C-Spine Mobility Assessed: Yes TMJ Mobility Assessed: Yes Dentition: Edentulous (upper denture removed) - Neurological Assessment Level of Consciousness: Awake, Alert, Appropriate, Follows Commands Hx Seizures: No Numbness or tingling in extremities: No - Anesthesia Plan Anesthesia Risk discussed: Yes Anesthesia Plan: Verified ASA Class: III Anesthesia Type: MAC w/Block [facility] History I have reviewed the patient's past medical history: Yes Medical History: Reports:: Atherosclerotic Heart Disease, Congestive Heart Failure, Coronary Artery Disease, Depression, Gastroesophageal Reflux Disease(GERD), Hyperlipidemia, Hypertension, Myocardial Infarction Denies:: Cancer, Diabetes Mellitus Type 1, Diabetes Mellitus Type 2, Internal Pacemaker, MRSA, Seizures *Have you ever received a pneumonia vaccine?: Yes *Have you received a flu vaccine this season?: Yes Other Medical History: Reports: Anemia. Denies: Blood Transfusion Reaction Comment:: obesity Anesthesia experience/problems:: None Laterality Cases: Left: Other, Bilateral: Tonsillectomy Other Surgeries: Yes: Cardiac Catheterization, Colonoscopy, Coronary Stent, Dilation and Curettage, Hysterectomy-Total, Hysterectomy-Partial, Tubal Ligation, Other. No: Pacemaker Amputation: No Fractures: Yes (foot) - *Social History Smoking Status: Former smoker Tobacco Type: cigarettes Alcohol Intake: never Alcohol Intake Frequency:: other Substance Use Type: denies use *Occupational Status:: retired Housing: house Household Members: none *Travel in the last 8 weeks: None - Psychiatric History Pschychiatric History:: Reports:: Depression Family Hx:: Diabetes, Cancer, Coronary Artery Disease, Stroke, Heart Attack
[2020-03-21 12:37] VITALS: TEMP 43
[2020-03-21 13:10] VITALS: BP 165/98; PULSE 66; RESP 16; TEMP 36.1; O2SAT 92
[2020-03-21 13:25] VITALS: BP 143/78; PULSE 62; RESP 18; TEMP 36.1; O2SAT 96
[2020-03-21 13:40] VITALS: BP 122/64; PULSE 58; RESP 18; TEMP 36.1; O2SAT 97
[2020-03-21 13:52] VITALS: BP 144/74; PULSE 60; RESP 18; TEMP 36.1; O2SAT 96
--- NOTE | 2020-03-21 16:10 | HMH.OPNOTE ---
Date of procedure: 03/21/20 Pre-op Diagnosis:: 1. Early Dupuytren's disease, left hand 2. Trigger finger, left fourth digit 3. Spontaneous subluxation of extensor tendon, left fourth digit Post-op Diagnosis:: Same Procedure performed:: 1. Trigger finger release, left fourth digit 2. Excision of Dupuytren's bands/tissue, left hand 3. Extensor tendon reconstruction, left fourth digit Surgeon:: Dylon Jacome MD Forger Helper(s):: Jane Ontiveros RAZOR SHARPENER:: Saul Pimentel Anesthesia: MAC, regional (Supraclavicular nerve block) Estimated blood loss (mL): 5 Clinical Note:: Patient is a 69-year-old female with recurrent triggering of her left ring finger, painful early Dupuytren's disease in her left hand and spontaneous ulnar subluxation of the extensor tendon of the fourth digit. She has had gradually worsening symptoms from these and failed to respond satisfactorily to nonsurgical management including local steroid injections. Patient is keen for all the problems to be addressed at the same time instead of as separate procedures. I have discussed the surgical procedures of release of the A1 vianca of the fourth finger, excision of early Dupuytren's band in her hand as well as reconstruction of the extensor tendon of the fourth digit. I have discussed the details of the procedures, risks and benefits and alternatives in detail. The complications discussed include but are not limited to infection, injury to nerves, tendons and blood vessels, incisional scar (cosmesis), scar tenderness/contracture, DVT/PE, finger stiffness, bowstringing of the tendons, CRPS (complex regional pain syndrome- pain, sensory and temperature changes, swelling and stiffness), painful scar, incomplete relief of pain, incomplete return of function, recurrence and likely need for further surgery in future and also the risks of anesthesia including heart attack, stroke, and even . I have discussed how there is a small but real possibility of loss of use of the arm, loss of the limb or loss of life itself. I have also explained how additional surgery may be required if there are any complications or recurrence. We have also discussed the postoperative recovery and rehabilitation required, the likely need for hand therapy, the possibility of stiffness, chronic pain and we've also discussed the option of nonsurgical treatment. Patient expressed a good understanding, and wished to proceed with surgery as planned, no guarantees or assurances were given or implied. Please refer to my office note for full details. Operative findings:: 1. Spontaneous extensor tendon subluxation of the left fourth digit: The intraoperative findings showed ulnar subluxation of the extensor digitorum communis tendon of the fourth finger with flexion of the finger and spontaneous relocation with extension of the fingers. The radial sagittal band was noted to be thin, elongated and degenerate. 2. Left hand trigger fingers and Dupuytren's contracture: The intraoperative findings showed very thickened and inflamed A1 vianca of the left ring finger. Also there is synovitis of the flexor tendon sheaths. The flexors tendons are thickened and somewhat degenerate but there is no tendon tear. There is no evidence of any space-occupying lesions over the tendons or within the A1 vianca. There are Dupuytren's bands extending from the middle of the hand to the level of the MCP joints. Operative note:: On the day of the surgery the patient was met in the preoperative area. Patient was positively identified and the operative site was marked and initialed by me. A physical examination was performed and the chart was updated. I again discussed the procedure, risks and benefits and alternatives with the patient. Patient asked appropriate questions and all have been answered by me. Patient wished to proceed with the surgery as planned. The site and side were marked and initialed by me. Patient verbalized good understanding, wished to p
== END 2020-03-21 13:52 | disposition home or self-care (01) ==
LOC: OR 08:40
PROVIDERS: PCP Family Medicine; Visit Provider Orthopaedic Surgery
PROC: (CPT 26055; principal; 2020-03-21 10:15)
DX: M65.342 Trigger finger, left ring finger (principal); M72.0 Palmar fascial fibromatosis [Dupuytren]; I10 Essential (primary) hypertension; Z79.899 Other long term (current) drug therapy
CPT/HCPCS: 26123; 71046; 88304; 96374; J0670

== ENCOUNTER → 2020-06-08 14:41 | Outpatient (CLI) | payer MEDICARE, MEDICAID, SELFPAY ==
--- NOTE | 2020-06-08 14:48 | XR_ITS ---
PROCEDURE: XR HAND LT MIN 3V CLINICAL INDICATION: left 4th digit, sx 03/21/2020 Pain COMPARISON: DX XR HAND LT MIN 3V from 01/20/2020 FINDINGS: There are mild osteoarthritic changes at the interphalangeal joint of the thumb and the DIP of digits 2 and 3 No fracture or dislocation. Mild osteoarthritis involves the scapho trapezium joint and the trapezium 1st metacarpal joint. Other findings:None. IMPRESSION: Mild osteoarthritis Dictated by: José Cobb MD 06/08/2020 14:57 José Cobb MD in [place] 06/08/2020 14:57
== END ==
PROVIDERS: PCP Family Medicine; Visit Provider Orthopaedic Surgery
DX: Z09 Encounter for follow-up examination after completed treatment for conditions other than malignant neoplasm (principal); M25.642 Stiffness of left hand, not elsewhere classified
CPT/HCPCS: 73130

== ENCOUNTER → 2020-06-20 08:55 | Outpatient (POV) | payer MEDICARE, MEDICAID, SELFPAY ==
[2020-06-20 09:16] VITALS: BP 133/85; PULSE 74; RESP 18; O2SAT 98; BMI 25.7
--- NOTE | 2020-06-20 09:38 | HMH.PMCON ---
Assessment and Plan (1) CRPS (complex regional pain syndrome type I) Status: Chronic Qualifiers: Complex regional pain syndrome affected site: upper extremity Laterality: left Qualified Code(s): G90.512 - Complex regional pain syndrome I of left upper limb Category: Medical Code(s): G90.50 - Complex regional pain syndrome I, unspecified - Assessment and plan all Dx Assessment and Plan for all problems:: We will start the patient on gabapentin 100 mg up to 3 times a day. I will follow-up with her in 2 weeks reassess her symptoms at that time. At that time we will discuss potential nerve blocks if necessary. She is continuing physical therapy. Dr. Nicole has reviewed this note and agrees with this plan of care. This note was dictated using voice recognition software and may contain errors or omissions HPI - Data of Consult Consult date: 06/20/20 Requesting Physician: Juanita Pop APRN Primary Care Provider: Antony Patino MD - Consult Narrative Reason for consult: CRPS left hand History of present illness: Ms. Johnson is a 69 year old female who presents today for consultation regards to her left hand. Patient had surgery for trigger finger release, excision of Dupuytrens bands and extensor tendon reconstruction of the left fourth digit. Since then she has had shocklike pain in her left hand she is also had swelling and decreased range of motion. She also has noted color changes to her left hand. Her hand is quite tender to touch. Patient is continuing physical therapy. Patient may need nerve blocks however due to her past history and her history of retinal issues that she is slightly apprehensive. I discussed that we would start with some gabapentin and discussed with her retinal surgeon for potential blocks in the future. Patient is agreeable she rates her pain today a 5 out of 10. CC: Juanita Pop APRN [facility] History I have reviewed the patient's past medical history: Yes Medical History: Reports:: Atherosclerotic Heart Disease, Congestive Heart Failure, Coronary Artery Disease, Depression, Gastroesophageal Reflux Disease(GERD), Hyperlipidemia, Hypertension, Myocardial Infarction Denies:: Cancer, Diabetes Mellitus Type 1, Diabetes Mellitus Type 2, Internal Pacemaker, MRSA, Seizures *Have you ever received a pneumonia vaccine?: Yes *Have you received a flu vaccine this season?: Yes Other Medical History: Reports: Anemia, Arthritis. Denies: Blood Transfusion Reaction Laterality Cases: Left: Other, Bilateral: Tonsillectomy Other Surgeries: Yes: No Previous Surgery, Cardiac Catheterization, Colonoscopy, Coronary Stent, Dilation and Curettage, Hysterectomy-Total, Hysterectomy-Partial, Tubal Ligation, Other. No: Pacemaker Amputation: No Fractures: Yes (foot) - *Social History Smoking Status: Never smoker Tobacco Type: cigarettes Alcohol Intake: never Alcohol Intake Frequency:: other Substance Use Type: denies use *Occupational Status:: retired Housing: other Household Members: other *Travel in the last 8 weeks: None - Psychiatric History Pschychiatric History:: Reports:: Depression Family Hx:: Unable to obtain Review of Systems - Review of Systems ROS General: no recent weight change, no fever, no sleep disturbances Respiratory: no cough, no shortness of air, no recurring pulmonary infections Cardiovascular/Peripheral Vascular: No chest pain, No palpitations, no edema, no shortness of breath. Gastrointestinal: no new onset incontinence, normal bowel movements reported Genitourinary: no new onset incontinence Musculoskeletal: Left hand pain Psychiatric: normal mood/ affect Neurological: [denies new onset weakness in extremities], [denies new onset balance issues] Meds Home Medications Medication Instructions Recorded Confirmed Type atorvastatin 40 mg tablet 40 mg PO HS 07/31/17 06/08/20 History lisinopril 5 mg tablet 5 mg PO DAILY 07/31/17 06/08/20 History iris
== END ==
PROVIDERS: PCP Family Medicine; Visit Provider Clinical Nurse Specialist Family Health
DX: G90.512 Complex regional pain syndrome I of left upper limb (principal)
CPT/HCPCS: 99202; G0463

== ENCOUNTER → 2020-07-04 09:26 | Outpatient (POV) | payer MEDICARE, MEDICAID, SELFPAY ==
[2020-07-04 09:45] VITALS: BP 115/78; PULSE 74; RESP 18; O2SAT 98; BMI 31.1
--- NOTE | 2020-07-04 09:47 | P.CONS_ITS ---
[facility] Pain Management SOAP Note Subjective:: Patient is a pleasant 69-year-old white female who presents today for follow-up. She has CRPS of the left hand. Patient was started on gabapentin 100 mg 1 p.o. 3 times daily at her last visit she is doing extremely well with this she rates her pain a 0 out of 10 the only pain that she has is when she has physical therapy. We discussed increasing her gabapentin on physical therapy days. Patient is agreeable. Patient swelling has decreased. She is having no shocklike symptomology. ROS General: no recent weight change, no fever, no sleep disturbances Respiratory: no cough, no shortness of air, no recurring pulmonary infections Cardiovascular/Peripheral Vascular: No chest pain, No palpitations, no edema, no shortness of breath. Gastrointestinal: no new onset incontinence, normal bowel movements reported Genitourinary: no new onset incontinence Musculoskeletal: Left hand pain at times Psychiatric: normal mood/ affect Neurological: [denies new onset weakness in extremities], [denies new onset balance issues] Objective:: Physical Exam General: Alert and oriented x3, no acute distress, pleasant and cooperative, [on room air] Lungs: Resps E/U, Symmetrical chest expansion, Eyes: PERRL Musculoskeletal: Range of motion left hand somewhat guarded secondary to pain, deep tendon reflexes normal, strength in upper and lower extremities [5/5], normal gait noted Neurological: speech clear, electrical assembly technician equal, no gross sensory deficits Assessment:: CRPS type I Plan:: We will increase her gabapentin 100 mg up to 5 times a day. Patient will continue to with physical therapy twice a week. I will follow-up with her in 1 month reassess her symptoms at that time she has been instructed to call the office if she has any issues prior to her next appointment. Dr. Nicole has reviewed this note and agrees with this plan of care. This note was dictated using voice recognition software and may contain errors or omissions [facility] History I have reviewed the patient's past medical history: Yes Medical History: Reports:: Atherosclerotic Heart Disease, Congestive Heart Failure, Coronary Artery Disease, Depression, Gastroesophageal Reflux Disease(GERD), Hyperlipidemia, Hypertension, Myocardial Infarction Denies:: Cancer, Diabetes Mellitus Type 1, Diabetes Mellitus Type 2, Internal Pacemaker, MRSA, Seizures *Have you ever received a pneumonia vaccine?: Yes *Have you received a flu vaccine this season?: Yes Other Medical History: Reports: Anemia, Arthritis. Denies: Blood Transfusion Reaction Laterality Cases: Left: Other, Bilateral: Tonsillectomy Other Surgeries: Yes: No Previous Surgery, Cardiac Catheterization, Colonoscopy, Coronary Stent, Dilation and Curettage, Hysterectomy-Total, Hysterectomy- Partial, Tubal Ligation, Other. No: Pacemaker Amputation: No Fractures: Yes (foot) - *Social History Smoking Status: Never smoker Tobacco Type: cigarettes Alcohol Intake: never Alcohol Intake Frequency:: other Substance Use Type: denies use *Occupational Status:: other Housing: other Household Members: other *Travel in the last 8 weeks: None - Psychiatric History Pschychiatric History:: Reports:: Depression Family Hx:: Unable to obtain
== END ==
PROVIDERS: PCP Family Medicine; Visit Provider Clinical Nurse Specialist Family Health
DX: G90.50 Complex regional pain syndrome I, unspecified (principal)
CPT/HCPCS: 99212; G0463

== ENCOUNTER 2020-09-14 14:00 | Outpatient (RCR) | payer MEDICARE, MEDICAID, SELFPAY ==
--- NOTE | 2020-06-21 15:43 | HMH.OTOPEV ---
OT Inpatient Evaluation Rehab OT Outpatient Eval Start: 06/21/20 15:07 Freq: Status: Active Protocol: Document 06/21/20 15:07 RMTERESITA (Rec: 06/21/20 15:[address] [facility] [id number] Electronically Signed By Marga Forde OT 06/21/20 15:07 Outpatient Therapy Subjective History Subjective History Pt seen this date for initial evaluation to left hand. Pt is s/p left 4th digit trigger release, excision of Dupuytrens band (left palm), and 4th digit extensor tendon reconstruction. Pt had this surgery on 03/21/21. Pt reports the conditions in her hands started several months ago and they progressively became worse requiring surgery . Pt is right hand dominant. Pt also has recently been diagnosed with possible CRPS. Pt does demonstrate with slight swelling in left hand. Pt has the most difficulty with movement in ring and small finger at PIP and DIP joints. Pt is slightly limited in motion at left wrist as well. Pt will continue to be seen twice a week in order to address all deficits. STG for Ring and Small finger Ring MP Flex: 90 degrees PIP Flex: 75 degrees DIP Flex: 50 degrees Small Finger MP Flex: 80 degrees PIP Flex: 75 degrees DIP Flex: 50 degrees LTG for Ring and Small finger Ring MP flex: 90 degrees PIP Flex: 90 degrees DIP Flex: 60 degrees Small MP Flex: 90 degrees PIP flex: 80 degrees DIP flex: 70 degrees Chief Complaint Pain,Stiff,Swelling,Weakness, Decreased Transit Mix Operator Strength, Decreased Coordination Symptom Type
--- NOTE | 2020-07-19 14:47 | HMH.RHREAS ---
Rehab Reassessment Rehab OP Re-assessment Start: 07/19/20 14:35 Freq: Status: Active Protocol: Document 07/19/20 14:35 RMPAOLAHALL (Rec: 07/19/20 14:46 RMARSHALL [id number]) Electronically Signed By Marga Forde OT 07/19/20 14:35 Rehab Re-assessment Subjective Subjective I don't see much of a difference, but I can do everything I want. Objective Objective Notes Pt continues to be seen twice a week in order to address L hand deficits. Pt is passively ranged at left wrist , ring finger, and small finger. She is stretched in all directions at each joint to assist with range of motion difficulties. Pt also engages in wrist and hand exercises to increase strength and motion. Pt does receive modalities such as US in order to decrease pain/inflammation . Assessment Progress Assessment Slower Than Expected Assessment Notes Overall, pt has met all goals written for L wrist. She is now within normal limits with AROM and strength at L wrist. However, pt's ring and small finger continue to remain signficantly limited at PIP and DIP joints. With observation it does not appear patient is still having CRPS syptoms with the left hand. Her hand is not swollen or shiny and she is able to move all other areas of the hand in normal range. Also, she doesn't have ignficant pain. She describes her pain as intermittent with certain activities. She is aware of the fact she cannot more her fingers in normal range, but she did report to therapist she is able to do any activity she needs/wants to. She also expressed her concern for having to have another surgery
--- NOTE | 2020-08-17 15:46 | HMH.RHREAS ---
Rehab Reassessment Rehab OP Re-assessment Start: 07/19/20 14:35 Freq: Status: Active Protocol: Document 08/17/20 15:34 RMARSHALL (Rec: 08/17/20 15:46 RMARSHALL [id number]) Electronically Signed By Marga Forde OT 08/17/20 15:34 Rehab Re-assessment Subjective Subjective It's not getting better and I am frustrated. Objective Objective Notes Pt continues to be seen twice a week in order to address L hand deficits. Pt is passively ranged at left wrist and fingers 2-5. She is stretched in all directions at each joint to assist with range of motion difficulties. Pt also engages in wrist and hand exercises to increase strength and motion. Pt does receive modalities such as US in order to decrease pain/ inflammation. Assessment Progress Assessment Slower Than Expected Assessment Notes Pt's ring and small finger continue to remain limited at PIP and DIP joints. She has also began complaining of pain and stiffness in her index and middle finger. These were both within normal limits when beginning thearpy. She reports she stretches all fingers and wrist at home, several times a day. She reports she has minimal pain but is frustrated with her lack of movement in her hand. Today patient asked therapist if she would benefit from a second opinion. Therapist informed patient it is her right if she wants to have a second opinion on her hand. However, therapist also explained she may get the same answers as she has already been provided. Pt reports she is going to get a referral from her PCP who she has already seen about the issue. Current AROM L Ring finger
== END 2020-09-14 14:05 | disposition home or self-care (01) ==
LOC: OT 14:00
PROVIDERS: PCP Family Medicine; Visit Provider Orthopaedic Surgery
DX: M25.642 Stiffness of left hand, not elsewhere classified (principal); M65.342 Trigger finger, left ring finger
CPT/HCPCS: 97010; 97018; 97035; 97110; 97140; 97164; 97166; 97530

== ENCOUNTER → 2020-12-20 06:58 | Outpatient (CLI) | payer MEDICARE, MEDICAID, SELFPAY ==
--- NOTE | 2020-12-20 06:59 | NM_ITS ---
APPROVED REPORT Exam: Nuclear Stress Test Indication: Chest pain, SOB, Fatigue, CAD, Hx of NH, HTN, High cholesterol, Family history Patient Location: Outpatient Stress Tech: Ana Cisneros NC Tech:Hattie Fletcher, ARRT, RT (R)(N) Ht: 5 ft 5 in Wt: 197 lbs Bra Size: 40C HR: 60 bpm BP: 132/78 mmHg BSA: 1.97 m2 BMI: 32.7 History: Chest pain, SOB, Fatigue, CAD, Hx of NH, HTN, High cholesterol, Family history Procedure: Patient received a 0.4 mg of intravenous Lexiscan, resting heart rate 60 bpm, resting blood pressure 132/78 mmHg, with Lexiscan maximum heart rate achived was 84 bpm which is Less than 85 % of the maximum predicted heart rate and blood pressure was 153/57 mmHg. With Lexiscan, patient denied any complaint of chest pain. Electrocardiogram Resting electrocardiogram showed sinus rhythm, with Lexiscan there is less than 1.[address] segment depression noted from the baseline EKG. The EKG portion of the Lexiscan is nondiagnostic. Cardiac Stress and Resting SPECT Images: Cardiac Stress and Resting SPECT images were obtained using technetium 99m Myoview 30.7 mCi stress and 10.28 mCi at rest. Gated SPECT for analysis of segmental wall motion and calculation of the ejection fraction also done. Cardiac stress and resting SPECT images show uniform myocardial activity without segmental perfusion abnormality, computer derived ejection fraction is 57% with no regional wall motion abnormality, right ventricle is normal size and contractility. Conclusion: 1. The EKG portion of the Lexiscan is nondiagnostic. 2. No scintigraphic evidence of reversible ischemia seen, computer derived ejection fraction is 57% with no regional wall motion abnormality, right ventricle is normal size and contractility. 3. Normal Lexiscan Myoview study. Electronically signed by : Yrn Whiting MD 12/20/2020 19:17:07
--- NOTE | 2020-12-20 06:59 | CA_ITS ---
APPROVED REPORT Exam: Pharmacologic Technologist: Ana Cisneros Ht: 5 ft 5 in Wt: 199 lbs BSA: 1.97 m2 HR: 60 bpm BP: 132/78 mmHg Indications: Angina Medical History Medications: Lisinopril,,,,, Omeprazole,,,,, Aspirin,,,,, Metoprolol,,,,, Lasix,,,,, Lipitor,,,,, PaROXETINE,,,,, OxYbutynin,,,,, Ferrous,,,,, Stress Test Details Test: LEXISCAN HR Resting HR: 63 bpm Max Heart Rate (APMHR): 149 bpm Max HR Achieved: 92 bpm Target HR (85% APMHR): 126 bpm % of APMHR: 61 Recovery HR: 73 bpm BP Resting BP: 132.0/78.0 mmHg Max BP: 153.0/57.0 mmHg Recovery BP: 130.0/55.0 mmHg ECG Resting ECG: Normal sinus rhythm, LVH Clinical Exercise duration: 04:00 min Highest Stage Achieved: Exercise capacity: 1.0 METs Stress ECG Conclusion Symptoms: Shortness of air, malaise, mild nausea. No chest pain. Arrhythmias/Ectopy: None ST-T Changes: No significant changes. Conclusion: Unremarkable Lexiscan stress. Myoview images reported separately. Electronically signed by : Yrn Whiting MD 12/20/2020 18:53:55
--- NOTE | 2020-12-20 08:34 | HMH.ITSHM ---
Current Home Medications as stated by this patient Neha Johnson or veterans employment representative. []VITAMIN B PAROXETINE OXYBUTYNIN OMEPRAZOLE MULTIVITAMIN METOPROLOL ASA LISINOPRIL FUROSEMIDE IRON ATORVASTATIN FAMOTIDINE
== END ==
PROVIDERS: PCP Family Medicine; Visit Provider Internal Medicine Cardiovascular Disease
DX: E78.5 Hyperlipidemia, unspecified (principal); I10 Essential (primary) hypertension; I27.20 Pulmonary hypertension, unspecified; I20.8 Other forms of angina pectoris
CPT/HCPCS: 78452; 93017; A9502; J2785

== ENCOUNTER → 2021-03-24 10:19 | Outpatient (CLI) | payer MEDICARE, MEDICAID, SELFPAY ==
--- NOTE | 2021-03-24 10:21 | MM_ITS ---
PROCEDURE INFORMATION: Exam: MG Bilateral Screening 3D Mammography Exam date and time: 03/24/2021 10:21 AM Age: 70 years old Clinical indication: Encounter for screening mammogram for malignant neoplasm of breast TECHNIQUE: Imaging protocol: Bilateral screening tomosynthesis and 2D mammography including computer-aided detection (CAD) when performed. COMPARISON: 1. MG MM DIG SCREENING MAMM BI W/CAD 01/11/2020 8:46 AM 2. MG SCBI MM Dig screening mamm BI w/CAD 06/11/2018 9:40 AM FINDINGS: MAMMOGRAPHY: Breast composition: The breast tissue is composed of scattered areas of fibroglandular density. Mass: None. Architectural distortion: None. Calcifications: No suspicious calcifications. Asymmetric density: None. Skin thickening: None. Axillary adenopathy: None. IMPRESSION: No mammographic evidence of malignancy. Annual screening is recommended unless otherwise clinically indicated. ASSESSMENT: BI-RADS Category 1: Negative
== END ==
PROVIDERS: PCP Family Medicine; Visit Provider Family Medicine
DX: Z12.31 Encounter for screening mammogram for malignant neoplasm of breast (principal)
CPT/HCPCS: 77063; 77067

== ENCOUNTER → 2021-04-24 10:16 | Outpatient (CLI) | payer MEDICARE, MEDICAID, SELFPAY | PROVIDERS: Visit Provider Surgery | DX: Z01.812 Encounter for preprocedural laboratory examination (principal); Z11.52 Encounter for screening for COVID-19; Z12.11 Encounter for screening for malignant neoplasm of colon | CPT/HCPCS: C9803; U0003; U0005 ==

== ENCOUNTER 2021-04-26 08:35 | Day surgery (SDC) | payer MEDICARE, MEDICAID, SELFPAY ==
[2021-04-18 14:07] VITALS: BMI 33.1
[2021-04-26 08:56] VITALS: BP 108/77; PULSE 105; RESP 18; TEMP 36.3; O2SAT 91
[2021-04-26 09:13] VITALS: O2SAT 91
--- NOTE | 2021-04-26 09:29 | HMH.ANESCL ---
[facility] Anesthesia Checklist - Structural Data Admitted From: Home Planned Operative Procedure/s: egd,colonoscopy Consent for Planned Operative Procedure(s) Verified: Yes - Additional verifications Anesthesia Reactions: No Hx Blood Transfusions: No Blood Transfusion Reaction: No - Airway Assessment C-Spine Mobility Assessed: Yes TMJ Mobility Assessed: Yes Dentition: Dentures-good fit - Neurological Assessment Level of Consciousness: Awake, Alert, Appropriate - Anesthesia Plan Anesthesia Risk discussed: Yes Anesthesia Plan: Verified ASA Class: III Anesthesia Type: MAC [facility] History I have reviewed the patient's past medical history: Yes Medical History: Reports:: Atherosclerotic Heart Disease, Congestive Heart Failure, Coronary Artery Disease, Depression, Gastroesophageal Reflux Disease(GERD), Hyperlipidemia, Hypertension, Myocardial Infarction Denies:: Cancer, Diabetes Mellitus Type 1, Diabetes Mellitus Type 2, Internal Pacemaker, MRSA, Seizures *Have you ever received a pneumonia vaccine?: Yes *Have you received a flu vaccine this season?: Yes Other Medical History: Reports: Anemia, Arthritis. Denies: Blood Transfusion Reaction Anesthesia experience/problems:: none Laterality Cases: Left: Other, Bilateral: Tonsillectomy Other Surgeries: Yes: No Previous Surgery, Cardiac Catheterization, Colonoscopy, Coronary Stent, Dilation and Curettage, Hysterectomy-Total, Hysterectomy-Partial, Tubal Ligation, Other. No: Pacemaker Amputation: No Fractures: Yes (foot) - *Social History Last grade of school completed: High school graduate Smoking Status: Never smoker # Packs/Day (cigarettes): 2 #Yrs smoked (if former smoker): 40 Smoking End Date: 2005 Alcohol Intake: never Alcohol Intake Frequency:: other Substance Use Type: denies use *Occupational Status:: other Housing: other Household Members: other *Travel in the last 8 weeks: None - Psychiatric History Pschychiatric History:: Reports:: Depression Family Hx:: Diabetes, Cancer, Coronary Artery Disease, Stroke, Heart Attack
--- NOTE | 2021-04-26 09:54 | HMH.SCOPE ---
- Procedure: Date: 04/26/21 Patient Date of :: 1950 Procedure Performed:: Esophago-gastroduodenoscopy with biopsies Colonoscopy to terminal ileum with biopsy and polypectomy Indications:: Patient is a 70-year-old female. She had previously undergone colonoscopy several years ago as well as EGD for anemia. Colonoscopy revealed diverticulosis and she had 4 tubular adenomas. She underwent small bowel follow-through which was unremarkable. 3-year colonoscopy was recommended. She has recently had some epigastric and chest tightness relieved with proton pump inhibitors. It was recommended by her fruit grader to undergo upper endoscopy. Performing Provider:: Antony Aj MD Referring Provider:: Antony Patino MD Sedation:: MAC sedation Procedure:: Patient was taken to endoscopy procedure room. She was positioned in lateral decubitus position. Adequate intravenous sedation was achieved with anesthesia titration of propofol. Olympus endoscope was inserted via the oropharynx. She had some tortuosity of the esophagus but no evidence of any esophagitis. Gastroesophageal junction was actually encountered at approximately 33 cm from the incisors. Stomach was cannulated and insufflated. Retroflexion revealed a large sliding hiatal hernia. Gastric antral mucosal biopsies obtained for CLOtest for H. pylori. Pylorus was traversed. Duodenal bulb and duodenal sweep are unremarkable. Endoscope was withdrawn into the gastric lumen. There were a couple of gastric fundic gland appearing polyps which were biopsied. In the proximal antrum, portion of the stomach herniated, there was some evidence of gastritis which was biopsied. Stomach was desufflated and the endoscope was withdrawn. Next attention was turned to colonoscopy. Variable stiffness Olympus colonoscope was inserted via the anus. It was advanced to the cecum. Colonic preparation was good. Ileocecal valve and appendiceal orifice were identified. Colonoscope was advanced a short distance into the terminal ileum which appeared grossly normal. Colonoscope was withdrawn into the cecum. There was a area several centimeters of some red mucosa. This was biopsied. Sent as cecal biopsy. Colonoscope was slowly withdrawn through the colon. In the descending colon there was a tiny diminutive polyp removed with cold biopsy forceps. She has significant appreciable sigmoid diverticulosis. Retroflexion within the rectum revealed no evidence of any pathologic internal hemorrhoids. Colonoscope was withdrawn. Findings:: Gastroesophageal junction at 33 cm from the incisors Large sliding hiatal hernia Antral gastritis Probable fundic gland polyps Significant sigmoid diverticulosis Diminutive descending polyp Recommendations:: Source of her epigastric and atypical chest pain may be large sliding hiatal hernia. Probable repeat colonoscopy 5 years pending pathology Complications:: None immediately apparent Estimated blood obtained (mL): 2
[2021-04-26 09:58] VITALS: BP 113/56; PULSE 89; RESP 16; TEMP 36.2; O2SAT 93
[2021-04-26 10:08] VITALS: BP 111/66; PULSE 81; RESP 16; O2SAT 93
[2021-04-26 10:18] VITALS: BP 148/92; PULSE 74; RESP 16; O2SAT 95
[2021-04-26 10:28] VITALS: BP 147/83; PULSE 73; RESP 16; O2SAT 96
== END 2021-04-26 10:28 | disposition home or self-care (01) ==
LOC: OUTP 08:37
PROVIDERS: PCP Family Medicine; Visit Provider Surgery
PROC: 0DJ08ZZ Inspection of Upper Intestinal Tract, Via Natural or Artificial Opening Endoscopic (ICD-10-PCS; CPT 43235; principal; 2021-04-26 09:30)
DX: Z12.11 Encounter for screening for malignant neoplasm of colon (principal); K29.60 Other gastritis without bleeding; K44.9 Diaphragmatic hernia without obstruction or gangrene; K31.7 Polyp of stomach and duodenum; K57.32 Diverticulitis of large intestine without perforation or abscess without bleeding; K63.5 Polyp of colon; Z87.19 Personal history of other diseases of the digestive system; I25.10 Atherosclerotic heart disease of native coronary artery without angina pectoris; K21.9 Gastro-esophageal reflux disease without esophagitis; F32.9 Major depressive disorder, single episode, unspecified; E78.5 Hyperlipidemia, unspecified; I10 Essential (primary) hypertension; I25.2 Old myocardial infarction
CPT/HCPCS: 43239; 45380; 87339; 88305

== ENCOUNTER → 2022-05-18 08:24 | Outpatient (CLI) | payer MEDICARE, MEDICAID, SELFPAY ==
--- NOTE | 2022-05-18 08:29 | MM_ITS ---
PROCEDURE INFORMATION: Exam: MG Bilateral Screening 3D Mammography Exam date and time: 05/18/2022 8:24 AM Age: 71 years old Clinical indication: Screening mammogram TECHNIQUE: Imaging protocol: Bilateral Screening tomosynthesis and 2D mammography including computer-aided detection (CAD) when performed. COMPARISON: 1. MG MM DIG SCREENING MAMM BI W/CAD 03/24/2021 10:17 AM 2. MG MM DIG SCREENING MAMM BI W/CAD 01/11/2020 8:46 AM 3. MG SCBI MM Dig screening mamm BI w/CAD 06/11/2018 9:40 AM 4. MG DMSB DIG MAMM-SCREEN KENNY W/CAD 03/04/2017 10:38 AM FINDINGS: MAMMOGRAPHY: Breast composition: There are scattered areas of fibroglandular density. Mass: Stable benign-appearing subcentimeter nodules are present in the bilateral breasts. No new or morphologically suspicious nodule has developed to suggest malignancy. Architectural distortion: No new or suspicious architectural distortion. Calcifications: No new or suspicious calcifications are present Asymmetric density: No new or suspicious asymmetric density is present Skin thickening: None. Axillary adenopathy: None. IMPRESSION: No mammographic evidence of malignancy. Recommend annual screening mammography unless otherwise clinically indicated. ASSESSMENT: BI-RADS category 2: Benign
--- NOTE | 2022-05-18 08:30 | CT_ITS ---
FINAL REPORT CLINICAL HISTORY: H/O NICOTINE DEPENDENCE FORMER SMOKER PT QUIT 17 YEARS AGO, 2PPD X40 YEARS COMPARISON: 01/11/2020 FINDINGS: Axial images were obtained from the lung apex to the mid abdomen by computed tomography. Low-dose protocol was utilized. CTDl vol(mGy): 2.90 DLP (mGy-cm): 103.68 FINDINGS: There is no axillary adenopathy. There is no hilar or mediastinal adenopathy. The heart size is normal. There is no pericardial or pleural effusion. There is a stable 5 mm ground-glass nodule in the left lower lobe on image 48. There is a stable 5 mm subpleural left upper lobe ground-glass nodule on image 38. In the right lower lobe, is a stable 5 mm nodule on image 49. A right middle lobe 5 mm nodule on image 44 is stable. No new mass or nodule is identified. There is early emphysema. A large hiatal hernia is seen. Limited images of the upper abdomen demonstrate no acute abnormality. IMPRESSION: Lung RADS category 2S. Recommend 12 month follow-up low-dose chest CT. Modifier S: Large hiatal hernia. Reviewed, Interpreted and Dictated by Akilah Parks MD Transcribed by Trinh Branch Authenticated and [facility]
== END ==
PROVIDERS: PCP Family Medicine; Visit Provider Physician Assistant
DX: Z12.31 Encounter for screening mammogram for malignant neoplasm of breast (principal); Z87.891 Personal history of nicotine dependence; Z12.2 Encounter for screening for malignant neoplasm of respiratory organs; Z78.0 Asymptomatic menopausal state
CPT/HCPCS: 71271; 77063; 77067

== ENCOUNTER → 2022-05-21 09:38 | Outpatient (CLI) | payer MEDICARE, MEDICAID, SELFPAY ==
--- NOTE | 2022-05-21 09:45 | XR_ITS ---
FINAL REPORT TECHNIQUE: Bone densitometry calculations of the lumbar spine and left hip were obtained. CLINICAL HISTORY: post menopausal FINDINGS: Using L1-4, the bone mineral density of the spine is 1.076 g/cm2, corresponding to T-score of 0.8. Using the left hip, the bone mineral density of the femoral neck is 0.811 g/cm2, corresponding to a T-score of -0.3. NOTE: T-score: Standard deviation compared with peak bone mass of young adult mean. *Following the recommendations of the International Society of Bone densitometry, classification of hip BMD is based on the lower of two T-scores; total hip or femoral neck. IMPRESSION: Normal bone mineral density of the lumbar spine and hip. Reviewed, Interpreted and Dictated by Akilah Parks MD Transcribed by Trinh Branch Authenticated and [facility]
== END ==
PROVIDERS: PCP Family Medicine; Visit Provider Physician Assistant
DX: Z78.0 Asymptomatic menopausal state (principal)
CPT/HCPCS: 77080

== ENCOUNTER 2022-06-23 12:06 | Emergency (ER) | payer MEDICARE, MEDICAID, SELFPAY ==
[2022-06-23 13:00] VITALS: BP 160/70; PULSE 80; RESP 12; TEMP 36.6; O2SAT 95; BMI 32.5
--- NOTE | 2022-06-23 13:18 | EXP.UTC ---
Discharge Plan Disposition Patient Disposition: Home, Self-Care Condition: Good Prescriptions Prescriptions: New amoxicillin-pot clavulanate [Augmentin] 500-125 mg tablet 1 tab PO Q12H Qty: 20 0RF No Action multivitamin [Daily Multi-Vitamin] tablet 1 tab PO DAILY lisinopril 5 mg tablet 5 mg PO DAILY metoprolol succinate 25 mg tablet extended release 24 hr 25 mg PO DAILY atorvastatin 40 mg tablet 40 mg PO HS omeprazole 40 mg capsule,delayed release(DR/EC) 40 mg PO DAILY vitamin B complex [B Complex-Vitamin B12] tablet 1 tab PO DAILY paroxetine HCl 20 mg tablet 20 mg PO DAILY oxybutynin chloride 10 mg tablet extended release 24hr 10 mg PO DAILY aspirin 81 mg tablet,chewable 81 mg PO DAILY ferrous sulfate 325 mg (65 mg iron) tablet 325 mg PO DAILY Referrals Follow up/Referrals: Antony Patino MD [Primary Care Provider] - See instructions Clinical Impressions Clinical Impression: Acute right otitis media, Acute upper respiratory infection Instructions Patient Instructions: DI for Middle Ear Infection-Adult, DI for Viral Upper Respiratory Infection -- Adult Discharge ED Provider: Ragini Vazquez [facility] General Stated complaint: chest congestion,ear pain Mode of Arrival: Ambulatory Source of Information: Patient Limitations: No Limitations Time Seen by Provider: 06/23/22 13:10 Description of Symptoms (Recalled from Triage Doc. by RN): cough, ALLAN, ear pain. Will have coughing spells and upper chest hurts. HEENT Symptoms (Recalled from RN notes): Yes Resp Symptoms (Recalled from RN notes): No Skin Symptoms (Recalled from RN notes): No MS Symptoms (Recalled from RN notes): No Functional Status (Recalled from RN notes): n/a History of Present Illness Provider Complaint: pt relates that she has had cough, clear sinus drainage and bilateral earaches for the past 3 days. She has taken alkaseltzer cold medication but it didn't sit well on her stomach. Related Data Home Medications Medication Instructions Recorded Confirmed atorvastatin 40 mg tablet 40 mg PO HS CHOLESTROL 07/31/17 06/23/22 lisinopril 5 mg tablet 5 mg PO DAILY Hypertension 07/31/17 06/23/22 metoprolol succinate 25 mg 25 mg PO DAILY Hypertension 07/31/17 06/23/22 tablet,extended release 24 hr multivitamin (Daily Multi-Vitamin 1 tab PO DAILY Supplement 07/31/17 06/23/22 tablet) omeprazole 40 mg capsule,delayed 40 mg PO DAILY GERD 07/31/17 06/23/22 release aspirin 81 mg chewable tablet 81 mg PO DAILY Heart disease 12/17/17 06/23/22 vitamin B complex (B 1 tab PO DAILY Supplement 12/19/17 06/23/22 Complex-Vitamin B12 tablet) ferrous sulfate 325 mg (65 mg 325 mg PO DAILY Supplement 10/16/18 06/23/22 iron) tablet oxybutynin chloride 10 mg 10 mg PO DAILY bladder 02/18/20 06/23/22 tablet,extended release 24 hr paroxetine HCl 20 mg tablet 20 mg PO DAILY mood 02/18/20 06/23/22 Previous Rx's Medication Instructions Recorded amoxicillin 500 mg-potassium 1 tab PO Q12H #20 tabs 06/23/22 clavulanate 125 mg tablet (Augmentin) Allergies Allergy/AdvReac Type Severity Reaction Status Date / Time No Known Allergies Allergy Verified 06/23/22 13:07 Worker's Comp Is this a Worker's Comp case?: No [facility] Disclaimer: The information contained in this section may have been updated after the patient was seen, as this information can be updated by other users. Medical History (Updated 06/23/22 @ 13:22 by Ragini Vazquez APRN) Chest pressure Gastroesophageal reflux disease Preop cardiovascular exam Pulmonary HTN Social History Smoking Status: Never smoker second hand exposure: No alcohol intake: never substance use type: denies use current occupational status: other Travel in the last 8 weeks: None household members: other housing: other current occupational exposures/hazards:
[2022-06-23 13:36] VITALS: BP 160/70; PULSE 80; RESP 12; TEMP 36.6; O2SAT 95
== END 2022-06-23 13:35 | disposition home or self-care (01) ==
PROVIDERS: Emergency Provider Nurse Practitioner Family; PCP Family Medicine
DX: J06.9 Acute upper respiratory infection, unspecified (principal); H66.91 Otitis media, unspecified, right ear
CPT/HCPCS: 99212; 99213; G0463

== ENCOUNTER → 2022-11-12 06:28 | Outpatient (CLI) | payer MEDICARE, MEDICAID, SELFPAY ==
--- NOTE | 2022-11-12 06:32 | NM_ITS ---
APPROVED REPORT Exam: Nuclear Stress Test Indication: CAD, 3 STENTS, H/O TN, HTN, HYPERLIPIDEMIA, FM HX, SOB, FATIGUE Patient Location: Outpatient Stress Tech: Ana Cisneros [place] Tech:Joi Toth JUAN RT (R)(N)(M) Ht: 5 ft 5 in Wt: 190 lbs Bra Size: D HR: 60 bpm BP: 138/58 mmHg BSA: 1.94 m2 Rhythm: NSR TID: 1.14 BMI: 31.6 History: CAD, 3 STENTS, H/O TN, HTN, HYPERLIPIDEMIA, FM HX, SOB, FATIGUE Procedure: Patient received 0.4 mg of intravenous Lexiscan, resting heart rate 60 bpm, resting blood pressure 138/58 mmHg, with Lexiscan maximum heart rate achieved was 93 bpm which is % of the maximum predicted heart rate and blood pressure was 110/55 mmHg. With Lexiscan, patient denied any complaint of chest pain. Cardiac Stress and Resting SPECT Images: Cardiac Stress and Resting SPECT images were obtained using technetium 99m Myoview 31.1 mCi stress and 10.50 mCi at rest. Resting and stress imaging in both supine and prone positions demonstrate a small-sized, mild, partially reversible perfusion defect in the distal inferior LV wall, as well as a small-sized, mild, partially reversible perfusion defect in the distal anterior LV wall. Gated imaging demonstrates normal global and regional LV systolic function. LVEF is calculated at 62%. Conclusion: Small-sized, mild, partially reversible perfusion defect in the distal inferior and distal anterior LV young Gated imaging demonstrates normal global and regional LV systolic function. LVEF is calculated at 62%. Electronically signed by : Carlotta Elena, 11/12/2022 15:59:56
--- NOTE | 2022-11-12 09:22 | CA_ITS ---
APPROVED REPORT Exam: Pharmacologic Technologist: Ana Cisneros Ht: 5 ft 5 in Wt: 198 lbs BSA: 1.97 m2 HR: 60 bpm BP: 138/58 mmHg Rhythm: NSR Indications: Chest pain Medical History Medications: Lisinopril,,,,, Omeprazole,,,,, Aspirin,,,,, Metoprolol,,,,, Ferrous sulfate,,,,, Atorvastatin,,,,, Montelukast,,,,, Famotidine,,,,, Vitamin B,,,,, PaROXETINE,,,,, OxYbutynin,,,,, Multivitamin,,,,, Stress Test Details Test: LEXISCAN HR Resting HR: 62 bpm Max Heart Rate (APMHR): 147 bpm Max HR Achieved: 93 bpm Target HR (85% APMHR): 125 bpm % of APMHR: 63 Recovery HR: 74 bpm BP Resting BP: 138.0/58.0 mmHg Max BP: 138.0/58.0 mmHg Recovery BP: 130.0/56.0 mmHg ECG Resting ECG: Sinus Rhythm Stress ECG: No change Arrhythmia: None Recovery ECG: No change Recovery Arrhythmia: None Clinical Exercise duration: 04:00 min Highest Stage Achieved: Exercise capacity: n/a METs Stress ECG Conclusion Symptoms: Chest pressure, nausea Arrhythmias/Ectopy: none ST-T Changes: None Conclusion: Unremarkable Lexiscan stress test. Myoview images are reported separately. Test Summary REST . . . . . . . Resting REST 10:23 . . 62 . 138/ 58 . . Stage 1 . . . . . . . Myoview Injected Stage 1 01:00 . . 72 . . . . Stage 2 01:00 . . 93 . . . . Stage 3 01:00 . . 82 . 131/ 68 . . Stage 4 01:00 . . 79 . 114/ 61 . Stop exercise at 04:00 RECOVERY 01:00 . . 74 . . . . RECOVERY 02:00 . . 72 . 110/ 55 . . RECOVERY 02:57 . . 78 . 130/ 56 . . Electronically signed by : Carlotta Elena, 11/12/2022 15:53:46
== END ==
LOC: RAD 06:29
PROVIDERS: PCP Family Medicine; Visit Provider Physician Assistant
DX: E78.5 Hyperlipidemia, unspecified (principal); I25.10 Atherosclerotic heart disease of native coronary artery without angina pectoris; I27.20 Pulmonary hypertension, unspecified; K21.9 Gastro-esophageal reflux disease without esophagitis; R06.09 Other forms of dyspnea; R07.89 Other chest pain
CPT/HCPCS: 78452; 93017; A9502; J2785

== ENCOUNTER → 2022-12-10 13:44 | Outpatient (CLI) | payer MEDICARE, MEDICAID, SELFPAY ==
[2022-12-10 14:58] LABS: Blood Urea Nitrogen 12 mg/dl (7-17); Estimated Glomerular Filt Rate 82 ml/min (>60); GFR (African American) 99 ML/MIN (>60)
== END ==
PROVIDERS: PCP Family Medicine; Visit Provider Nurse Practitioner
DX: H65.21 Chronic serous otitis media, right ear (principal)
CPT/HCPCS: 36415; 82565; 84520

== ENCOUNTER 2022-12-13 08:31 | Day surgery (SDC) | payer MEDICARE, MEDICAID, SELFPAY ==
[2022-12-13] VITALS (14 sets, daily range): BP systolic 110–156; BP diastolic 50–91; PULSE 55–73; RESP 15–18; O2SAT 90–98; BMI 33.3
--- NOTE | 2022-12-13 07:09 | IR_ITS ---
APPROVED REPORT Patient Location: Outpatient PROCEDURES Left heart catheterization Left ventriculogram Selective coronary angiogram INDICATION Abnormal Myoview, Angina pectoris, Known coronary artery disease Informed consent was obtained prior to the procedure. COMPLICATIONS NONE Estimated Blood Loss: LESS THAN 10 ML TECHNIQUE One percent lidocaine used to anesthetize the right anterior aspect of the wrist. The right radial artery was accessed via the Seldinger technique. A 6 Montserratian sheath was placed in the right radial artery. 2.5 mg of Verapamil, 800 mcg of nitroglycerin, 1mg Lidocaine and 5000 U Heparin were given through the arterial sheath. The papa catheter was also used to perform left heart catheterization, left ventriculogram and selective coronary angiogram. At the end of the procedure the sheath was removed good hemostasis was achieved using Traclet band, patient was transferred to the postop holding area in stable condition. ANGIOGRAPHIC RESULTS The left main artery Normal The left anterior descending artery Has proximal and mid vessel diffuse 20% stenoses The circumflex artery Nondominant with mild 10% luminal irregularities and a small second obtuse marginal artery The right coronary artery Large and dominant has a stent in the proximal mid and distal segment with a bifurcating stent in both the posterior descending artery and large posterior lateral branch from mid right coronary artery has a concentric 40% in-stent restenotic lesion. The posterior descending artery stent and the posterior lateral branch stents were widely patent. Distal to the posterior lateral stent there is a 40% stenotic lesion and a 2 mm vessel The RAMIREZ ventriculogram reveals Preserved 60% The left ventricular end-diastolic pressure Elevated at 25 mmHg MARTHA II flow was present in all coronary arteries IMPRESSION Coronary disease as described above Slow flow down the coronary arteries consistent with diastolic dysfunction and endothelial dysfunction Elevated LVEDP PLAN 1. Medical management for coronary disease 2. Treatment of diastolic dysfunction 3. Treatment of endothelial dysfunction Electronically signed by : Shiva Kamara MD 12/13/2022 10:23:52
[2022-12-13 09:06] LABS: Basophils # 0.1 K/mm3 (0-0.2); Basophils % 1.1 % (0.1-2.0); Eosinophils # 0.4 K/mm3 (0.0-0.4); Eosinophils % 5.5 % (0.1-12.0); Hemoglobin 13.7 g/dL (12.2-16.2); Lymphocytes # 2.9 K/mm3 (0.7-4.5); Lymphocytes % 42.3 % (10-50); Mean Corpuscular HGB Conc 34.1 g/dL (31.8-35.4); Mean Corpuscular Hemoglobin 31.5 pg (27.0-31.2); Mean Corpuscular Volume 92.4 fl (81-99); Mean Platelet Volume 8.5 fl (7.4-10.4); Monocytes # 0.4 K/mm3 (0.1-1.0); Monocytes % 6.3 % (1.7-9.3); Neutrophils # 3.1 K/mm3 (1.8-7.8); Neutrophils % 44.8 % (37.0-80.0); Platelet Count 250 K/mm3 (142-424); Red Blood Count 4.33 M/mm3 (4.20-5.40); Red Cell Distribution Width 13.4 % (11.5-17.5); White Blood Count 6.9 K/mm3 (4.8-10.8)
[2022-12-13 09:15] LABS: Anion Gap 13.2 mEq/L (5-15); Blood Urea Nitrogen 13 mg/dl (7-17); Carbon Dioxide 28 mmol/L (22.0-30.0); Chloride 106 mmol/L (98-107); Creatinine Clearance Estimated 72 mL/min (50-200); Estimated Glomerular Filt Rate 70 ml/min (>60); GFR (African American) 85 ML/MIN (>60); Glucose 124 mg/dl (74-100); Potassium 4.2 mmoL/L (3.5-5.1); Sodium 143 mmol/L (136-145)
== END 2022-12-13 13:15 | disposition home or self-care (01) ==
PROVIDERS: PCP Family Medicine; Visit Provider Internal Medicine
DX: I25.118 Atherosclerotic heart disease of native coronary artery with other forms of angina pectoris (principal); R94.39 Abnormal result of other cardiovascular function study; I27.20 Pulmonary hypertension, unspecified; I10 Essential (primary) hypertension; E78.5 Hyperlipidemia, unspecified; K21.9 Gastro-esophageal reflux disease without esophagitis; Z79.899 Other long term (current) drug therapy
CPT/HCPCS: 80048; 85025; 93458; 99152; C1725; C1769; J1644; Q9967

== ENCOUNTER → 2022-12-18 12:46 | Outpatient (POV) | payer MEDICARE, MEDICAID, SELFPAY | PROVIDERS: Visit Provider Specialist/Technologist | DX: Z00.00 Encounter for general adult medical examination without abnormal findings (principal) ==

== ENCOUNTER → 2022-12-20 13:25 | Outpatient (CLI) | payer MEDICARE, MEDICAID, SELFPAY ==
--- NOTE | 2022-12-20 13:26 | CT_ITS ---
FINAL REPORT TECHNIQUE: thin section axial CT with and without IV contrast supplemented with multiplanar 3-D reconstruction of the head. This study was performed with techniques to keep radiation doses as low as reasonably achievable, (ALARA)individualized dose reduction techniques using automated exposure control or adjustment of mA and/or kV according to the patient's size were employed. CLINICAL HISTORY: temporal bone rule out mastoiditis COMPARISON: None FINDINGS: HEAD CT: The ventricles are normal in size. There is no evidence of hemorrhage. No masses are identified. No extra-axial fluid is seen. The sinuses are normal. There is mild sclerosis in the right inferior mastoid air cells, consistent with a chronic mastoiditis. CTA: The cranial circulation is unremarkable. There is no significant stenosis, aneurysm or occlusion. IMPRESSION: No acute process. Mild sclerosis in the right inferior mastoid air cells, consistent with a chronic mastoiditis on the right. Reviewed, Interpreted and Dictated by Saad Abad MD Transcribed by Nohelia Jiménez Authenticated and [facility]
== END ==
PROVIDERS: PCP Family Medicine; Visit Provider Nurse Practitioner
DX: H65.93 Unspecified nonsuppurative otitis media, bilateral (principal)
CPT/HCPCS: 70496; Q9967

== ENCOUNTER → 2023-02-27 10:05 | Outpatient (CLI) | payer MEDICARE, MEDICAID, SELFPAY ==
[2023-02-27 10:39] LABS: Basophils % 0.5 % (0.1-2.0); Eosinophils # 0.3 K/mm3 (0.0-0.4); Eosinophils % 5.9 % (0.1-12.0); Hematocrit 38.4 % (37.0-47.0); Hemoglobin 13.4 g/dL (12.2-16.2); Lymphocytes # 2.3 K/mm3 (0.7-4.5); Lymphocytes % 42.4 % (10-50); Mean Corpuscular HGB Conc 34.9 g/dL (31.8-35.4); Mean Corpuscular Hemoglobin 32.4 pg (27.0-31.2); Mean Corpuscular Volume 92.7 fl (81-99); Mean Platelet Volume 8.6 fl (7.4-10.4); Monocytes # 0.3 K/mm3 (0.1-1.0); Monocytes % 5.4 % (1.7-9.3); Neutrophils # 2.5 K/mm3 (1.8-7.8); Neutrophils % 45.9 % (37.0-80.0); Platelet Count 216 K/mm3 (142-424); Red Blood Count 4.14 M/mm3 (4.20-5.40); Red Cell Distribution Width 13.1 % (11.5-17.5); White Blood Count 5.5 K/mm3 (4.8-10.8)
[2023-02-27 11:21] LABS: Alanine Aminotransferase 27 U/L (12-78); Albumin Level 3.7 g/dl (3.5-5.0); Alkaline Phosphatase 64 U/L (38-126); Anion Gap 11.2 mEq/L (5-15); Aspartate Amino Transferase 28 U/L (14-36); Bilirubin,Direct 0.1 mg/dl (0.0-0.4); Bilirubin,Indirect 0.1 mg/dL (0.0-0.9); Bilirubin,Total 0.2 mg/dl (0.2-1.3); Bilirubin,Unconjugated 0.2 mg/dL (0.0-1.1); Blood Urea Nitrogen 9 mg/dl (7-17); Calcium 8.8 mg/dl (8.4-10.2); Carbon Dioxide 28 mmol/L (22.0-30.0); Chloride 105 mmol/L (98-107); Cholesterol 145 mg/dl (140-200); Estimated Glomerular Filt Rate 82 ml/min (>60); GFR (African American) 99 ML/MIN (>60); Glucose 111 mg/dl (74-100); HDL Cholesterol 36 mg/dl (40-60); Potassium 4.2 mmoL/L (3.5-5.1); Sodium 140 mmol/L (136-145); Total Protein,Serum 5.9 g/dl (6.3-8.2); Triglycerides 159 mg/dl (30-150); VLDL Cholesterol 32 mg/dL (0-40)
[2023-02-27 11:31] LABS: Direct LDL Cholesterol 78.52 mg/dL (100-129)
[2023-02-27 11:51] LABS: Thyroid Stimulating Hormone 0.91 uIU/mL (0.465-4.68)
[2023-02-27 17:18] LABS: Hemoglobin A1C 5.4 % (4.0-6.0)
== END ==
PROVIDERS: PCP Family Medicine; Visit Provider Internal Medicine
DX: I25.119 Atherosclerotic heart disease of native coronary artery with unspecified angina pectoris (principal); I11.9 Hypertensive heart disease without heart failure; I27.20 Pulmonary hypertension, unspecified; R06.00 Dyspnea, unspecified; E78.5 Hyperlipidemia, unspecified; Z86.73 Personal history of transient ischemic attack (TIA), and cerebral infarction without residual deficits; K21.9 Gastro-esophageal reflux disease without esophagitis; E11.9 Type 2 diabetes mellitus without complications
CPT/HCPCS: 36415; 80048; 80061; 80076; 83036; 84443; 85025

== ENCOUNTER 2023-07-22 12:58 | Outpatient (POV) | payer MEDICARE, MEDICAID, SELFPAY | END 2023-07-22 23:59 | disposition home or self-care (01) | LOC: SC 12:59 | PROVIDERS: Visit Provider Specialist/Technologist | DX: Z00.00 Encounter for general adult medical examination without abnormal findings (principal) ==

== ENCOUNTER 2023-07-24 13:18 | Outpatient (CLI) | payer MEDICARE, MEDICAID, SELFPAY ==
--- NOTE | 2023-07-24 13:21 | MM_ITS ---
PROCEDURE INFORMATION: Exam: MG Bilateral Screening 3D Mammography Exam date and time: 07/24/2023 1:16 PM Age: 73 years old Clinical indication: Screening mammogram TECHNIQUE: Imaging protocol: Bilateral Screening tomosynthesis and 2D mammography including computer-aided detection (CAD) when performed. COMPARISON: 1. MG MM DIG SCREENING MAMM BI W/CAD 05/18/2022 8:24 AM 2. MG MM DIG SCREENING MAMM BI W/CAD 03/24/2021 10:17 AM 3. MG MM DIG SCREENING MAMM BI W/CAD 01/11/2020 8:46 AM 4. MG SCBI MM Dig screening mamm BI w/CAD 06/11/2018 9:40 AM FINDINGS: MAMMOGRAPHY: Breast composition: There are scattered areas of fibroglandular density. Mass: None. Architectural distortion: No new or suspicious architectural distortion. Calcifications: No new or suspicious calcifications are present Asymmetric density: No new or suspicious asymmetric density is present Skin thickening: None. Axillary adenopathy: None. IMPRESSION: No mammographic evidence of malignancy. Recommend annual screening mammography unless otherwise clinically indicated. ASSESSMENT: BI-RADS category 1: Negative.
--- NOTE | 2023-07-24 13:22 | CT_ITS ---
FINAL REPORT TECHNIQUE: Thin section axial images were obtained from the lung apices to the upper abdomen by computed tomography. Reformatted images were obtained and reviewed. This study was performed with techniques to keep radiation doses al low as reasonably achievable (ALARA). Individualized dose reduction techniques using automated exposure control or adjustment of mA and/or kV according to the patient's size were employed. CLINICAL HISTORY: H/O TOBACCO USE former smoker x 18 years 2 ppd x 30 years COMPARISON: 05/18/2022 FINDINGS: CHEST CT LOW DOSE 72-year-old female, former smoker who quit 18 years ago, 56-then-nuxg history of smoking. CTDI vol (mGy): 2.9 DLP (mGy-cm): 110.46 There is no axillary adenopathy. There is no mediastinal or hilar mass or adenopathy. The heart is normal in size. There is no pericardial or pleural effusion. There is mild emphysema and mild pulmonary scarring. Lung window images demonstrate a ground glass nodule in the right upper lobe, ill-defined, measuring 10 mm in size, best seen on image #26 of series 4. There is a small peripheral right lower lobe nodule measuring 4 mm, best seen on image #49 of series 4, stable. There is a 5 mm ground glass nodule in the peripheral right lower lobe, best seen on image #50 of series 4. There is also a ground glass nodule in the periphery of the left upper lobe measuring 5 mm, image #41 of series 4, also stable.. Limited images of the upper abdomen reveal a large hiatal hernia.. IMPRESSION: Lung-RADS category 2S, with the S designation for the large hiatal hernia. Recommend 12 month follow up low dose chest CT. Reviewed, Interpreted and Dictated by Saad Abad MD Transcribed by Nohelia Jiménez Authenticated and [facility]
== END 2023-07-24 23:59 ==
LOC: RAD 13:18
PROVIDERS: PCP Family Medicine; Visit Provider Physician Assistant
DX: Z12.31 Encounter for screening mammogram for malignant neoplasm of breast (principal); Z87.891 Personal history of nicotine dependence
CPT/HCPCS: 71271; 77063; 77067

== ENCOUNTER 2023-10-14 06:24 | Day surgery (SDC) | payer MEDICARE, MEDICAID, SELFPAY ==
[2023-10-10 13:55] VITALS: BMI 33.1
--- NOTE | 2023-10-14 06:35 | HMH.SCOPE ---
Procedure: Date: 10/14/23 Patient Date of :: 1950 Procedure Performed:: Esophagogastroduodenoscopy Colonoscopy Indications:: Patient presents for EGD and colonoscopy. She is a pleasant 73-year-old female who was referred by Alida Rowland for EGD. She has undergone numerous previous colonoscopies in the past. I had performed EGD on her on 08/13/2017 for symptomatic anemia and melena. She was found to have a large sliding hiatal hernia and linear gastric erosions but no active bleeding. She underwent colonoscopy the following day on 08/14/2017 which revealed no active bleeding. She had diminutive polyps (4 tubular adenomas) and diverticulosis. She did have a small bowel follow-through which revealed no lesions. I did EGD and colonoscopy on her on 04/26/2021 at which time she was found to have gastroesophageal junction at 33 cm, large hiatal hernia, antral gastritis, fundic gland polyps. Colonoscopy revealed no adenomatous polyps. Repeat colonoscopy was recommended for 5 years. Of note, her sister has subsequently been diagnosed with colon cancer and had undergone resection and has been through somewhat of an ordeal. She was referred for upper endoscopy in preparation for and anticipation of potential hiatal hernia repair as she has a pending upcoming appointment with Faina Ruff. Patient describes early satiety. She states that she is unable to eat much food. She describes fullness. Given the patient's prior history of adenomatous polyps and newly diagnosed first-degree relative with complicated colon cancer I would plan for colonoscopy as well and has EGD. . Performing Provider:: Antony Aj MD Referring Provider:: Alida Ruff . Sedation:: MAC sedation . Procedure:: Patient history was obtained and appropriate physical examination was performed. Patient's medications and allergies were reviewed. Informed consent was obtained after explaining the benefits, alternatives, and risks of the procedure including, but not limited to, bleeding, perforation, missed lesions, and adverse reaction to anesthesia medications. Patient was transported to endoscopy procedure room. Patient was connected to monitoring devices. Throughout the procedure the patient's blood pressure, pulse, and oxygen saturations were monitored continuously. Patient identification and planned procedure were verified by the staff. Patient was positioned in lateral decubitus position. Attention was first turned to upper endoscopy. Olympus endoscope was inserted via the oropharynx. Esophagus was cannulated. There was tortuosity to the esophagus consistent with esophageal dysmotility. There was no evidence of any appreciable esophagitis or Sharif's dysplasia. Gastroesophageal junction was encountered at approximately 32 cm from the incisors. Stomach was entered. There was an appreciable amount of stomach above the diaphragm as a hiatal hernia. There were some fundic gland polyps within the herniated portion of stomach. Stomach body was then entered and retroflexion revealed a moderately large sliding hiatal hernia measuring about 6 - 7 cm. There is some diffuse nonerosive gastritis/gastropathy. There were several polyps which appeared somewhat inflamed having appearance more like hyperplastic polyps as opposed to fundic gland polyps. Pylorus was traversed. Duodenum appeared normal. A couple biopsies were obtained within the duodenum. Endoscope was withdrawn into the gastric lumen and gastric antral biopsy was obtained. Several of the inflamed appearing polyps were removed with hot snare and sent as gastric polyps. Endoscope was withdrawn into the distal esophagus and a couple of biopsies were obtained. Endoscope was withdrawn. Next attention was turned to colonoscopy. Digital anorectal exam was performed. Variable stiffness Olympus colonoscope was inserted and advanced under direct visualization to the cecum. Adequacy of the colonic preparation was noted. Within the cecum there was a tiny diminutive polyp near the appendiceal orifice which was removed with biopsy forceps. There was some particulate liquid stool throughout the colon which was cleared with high-volume trans colonoscopic irrigation and suctioning. In the descending colon there were a couple of small polyps removed with cold snare and sent as descending colon polyp x 2. In the sigmoid colon there was a tiny diminutive possible adenomatous polyp removed with biopsy forceps. There was significant sigmoid diverticuli with multiple largemouth diverticuli. The colonoscope was then slowly withdrawn while carefully examining the color, texture, anatomy, and integrity of the mucosoa circumferentially. Within the rectum retroflexion was performed. Colonoscope was then withdrawn. . Findings:: Findings consistent with esophageal dysmotility Moderately large sliding hiatal hernia of 6 to 7 cm Gastroesophageal junction at 32 cm from the incisors Mild diffuse nonerosive gastropathy/gastritis Possible fundic gland polyps and also potential hyperplastic polyps appearing inflamed Polyps as noted above. Total of 4 small polyps removed. Moderate sigmoid diverticulosis . Recommendations:: Likely repeat colonoscopy 3 years given family history, early development of polyps, and prior history of polyps. Complications:: None immediately apparent Estimated blood obtained (mL): 3 Colonoscopy Component Colonoscopy Component Was a colonoscopy performed during today's procedure?: Yes Recommended follow up colonoscopy of at least 10 years?: No If no, follow up colonoscopy recommended in ___ years?: 3 Reason for not recommending >/= 10 yr follow-up interval?: See above
[2023-10-14 06:53] VITALS: BP 142/109; PULSE 101; RESP 18; TEMP 36.1; O2SAT 93
[2023-10-14] MEDS: LACTATED RINGERS 1000ML 1,000 ML 25 ML IV (07:06)
--- NOTE | 2023-10-14 07:11 | P.PNANES_ITS ---
[facility] Disclaimer: The information contained in this section may have been updated after the patient was seen, as this information can be updated by other users. Medical History (Updated 10/14/23 @ 07:01 by Katiuska Olivier RN) Heart attack History of COVID-19 Eczema Dysfunction of right eustachian tube Fluid level behind tympanic membrane Hearing loss Congestion of right ear Chronic mastoiditis of right side Angina pectoris Abnormal cardiovascular stress test Eustachian tube obstruction Chronic serous otitis media, right ear Bilateral serous otitis media Preop cardiovascular exam Gastroesophageal reflux disease Chest pressure HLD (hyperlipidemia) Pulmonary HTN HTN (hypertension) CAD (coronary artery disease) GI bleed Surgical History History of surgery Hx of tonsillectomy H/O oral surgery H/O foot surgery H/O: hysterectomy Family History Other Colon cancer Heart disease Social History (Updated 10/14/23 @ 07:01 by Katiuska Olivier RN) Smoking Status: Never smoker second hand exposure: No alcohol intake: never substance use type: denies use current occupational status: retired Travel in the last 8 weeks: None household members: other housing: other current occupational exposures/hazards: No caffeine: Yes [facility] Anesthesia Checklist Patient Identification Patient Identification: Arm Band Structural Data Admitted From: Home Planned Operative Procedure/s: EGD/Colonoscopy Consent for Planned Operative Procedure(s) Verified: Yes Verified Documents: Surgical Consent and History and Physical NPO Status Verified Time NPO: 00:00 Additional verifications Anesthesia Reactions: No Hx Blood Transfusions: No Blood Transfusion Reaction: No Airway Assessment Mallampati Score:: Class II C-Spine Mobility Assessed: Yes TMJ Mobility Assessed: Yes Dentition: Edentulous Neurological Assessment Level of Consciousness: Awake, Alert and Appropriate Anesthesia Plan Anesthesia Risk discussed: Yes Anesthesia Plan: Verified ASA Class: III Anesthesia Type: MAC
[2023-10-14 07:18] LABS: Basophils # 0.1 K/mm3 (0-0.2); Eosinophils # 0.2 K/mm3 (0.0-0.4); Eosinophils % 2.8 % (0.1-12.0); Hematocrit 45.9 % (37.0-47.0); Hemoglobin 15.3 g/dL (12.2-16.2); Lymphocytes # 1.8 K/mm3 (0.7-4.5); Lymphocytes % 22.9 % (10-50); Mean Corpuscular HGB Conc 33.3 g/dL (31.8-35.4); Mean Corpuscular Hemoglobin 31.8 pg (27.0-31.2); Mean Corpuscular Volume 95.7 fl (81-99); Mean Platelet Volume 8.7 fl (7.4-10.4); Monocytes # 0.4 K/mm3 (0.1-1.0); Monocytes % 4.9 % (1.7-9.3); Neutrophils # 5.4 K/mm3 (1.8-7.8); Neutrophils % 68.4 % (37.0-80.0); Platelet Count 284 K/mm3 (142-424); Red Cell Distribution Width 13.3 % (11.5-17.5); White Blood Count 7.9 K/mm3 (4.8-10.8)
[2023-10-14 07:25] VITALS: O2SAT 93
[2023-10-14 07:41] LABS: Chloride 103 mmol/L (98-107); Potassium 3.6 mmoL/L (3.5-5.1); Sodium 140 mmol/L (136-145)
[2023-10-14 07:44] LABS: Blood Urea Nitrogen 11 mg/dl (7-17); Creatinine Clearance Estimated 70 mL/min (50-200); Estimated Glomerular Filt Rate 70 ml/min (>60); GFR (African American) 85 ML/MIN (>60)
[2023-10-14 07:45] LABS: Anion Gap 12.6 mEq/L (5-15); Calcium 9.6 mg/dl (8.4-10.2); Carbon Dioxide 28 mmol/L (22.0-30.0); Glucose 159 mg/dl (74-100)
[2023-10-14 08:15] VITALS: BP 118/74; PULSE 83; RESP 17; TEMP 36.3; O2SAT 91
[2023-10-14 08:25] VITALS: BP 113/68; PULSE 84; RESP 17; O2SAT 91
[2023-10-14 08:35] VITALS: BP 146/92; PULSE 72; RESP 17; O2SAT 95
[2023-10-14 08:45] VITALS: BP 170/89; PULSE 72; RESP 18; O2SAT 95
== END 2023-10-14 08:51 | disposition home or self-care (01) ==
PROVIDERS: PCP Family Medicine; Visit Provider Surgery
PROC: 0DJ08ZZ Inspection of Upper Intestinal Tract, Via Natural or Artificial Opening Endoscopic (ICD-10-PCS; CPT 43235; principal; 2023-10-14 07:30)
DX: R68.81 Early satiety (principal); Z09 Encounter for follow-up examination after completed treatment for conditions other than malignant neoplasm; Z86.010 Personal history of colon polyps; Z80.0 Family history of malignant neoplasm of digestive organs; K31.7 Polyp of stomach and duodenum; K44.9 Diaphragmatic hernia without obstruction or gangrene; K29.70 Gastritis, unspecified, without bleeding; K31.9 Disease of stomach and duodenum, unspecified; D12.0 Benign neoplasm of cecum; D12.4 Benign neoplasm of descending colon; D12.5 Benign neoplasm of sigmoid colon; K57.30 Diverticulosis of large intestine without perforation or abscess without bleeding
CPT/HCPCS: 43239; 43251; 45380; 45385; 80048; 85025; 88305; 88312; 88342; J2704; J7120

== ENCOUNTER 2024-01-03 09:44 | Outpatient (CLI) | payer MEDICARE, MEDICAID, SELFPAY ==
--- OUTSIDE RECORDS SUMMARY | 2024-01-03 09:48 | XMS_ITS | Patient Health Record ---
Author Organization [facility] Address [address] [place] [phone] Care Team Providers Care Audio Technician Name Role Phone Antony Patino Primary Care Provider Alida Rowland Unavailable [phone] ALLERGIES No Known Allergies RESULTS Component Value Reference Range Notes CT Scan : Chest, low dose Reviewed date:07/29/2023 08:28:30 AM Interpretation:large hiatal hernia, annual f/u Performing Lab: Notes/Report: large hiatal hernia, annual f/u Mammogram Reviewed date:07/30/2023 10:50:34 AM Interpretation:Negative Annual F/U Performing Lab: Notes/Report: Negative Annual F/U result Negative P-Vitamin D 25-Hydroxy Reviewed date:07/08/2023 09:01:12 AM Interpretation: Performing Lab: Notes/Report: Test performed by [facility] [address] [place], [place] [address] [place] , [place] [address] Baldo Ortega MD, Tail Board Worker CLIA: [id number] Vitamin D 25-Hydroxy 47.8 30.0-100.0 ng/mL Interpretation of Vitamin D 25 OH: < 20 ng/mL - Deficiency 20 - 29 ng/mL - Insufficiency 30 - 100 ng/mL - Sufficiency > 100 ng/mL - Super-therapeutic- toxicity may occur above this level. Clinical correlation required. P-TSH Reviewed date:07/08/2023 09:01:12 AM Interpretation: Performing Lab: Notes/Report: Test performed by [facility] [address] [place], [place] [address] [address], [place] [address] Baldo Ortega MD, Tail Board Worker CLIA: [id number] TSH 1.53 0.43-5.25 mU/L P-Lipid Panel Reviewed date:07/08/2023 09:01:12 AM Interpretation:Trigs 200 Performing Lab: Notes/Report: Test performed by [facility] [address] [place] [address] , [address], [place] [address] Baldo Ortega MD, Tail Board Worker CLIA: [id number] Cholesterol 171 <200 mg/dL Triglycerides 200 <150 mg/dL HDL Cholesterol 45 >39 mg/dL Cholesterol / HDL Ratio 3.80 0.00-4.44 Ratio Non-HDL Cholesterol 126 <130 mg/dL LDL Cholesterol (Calculation) 86 <130 mg/dL LDL Cholesterol Levels* Less than 100 mg/dL Optimal 100 to 129 mg/dL Near Optimal/ Above Optimal 130 to 159 mg/dL Borderline High 160 to 189 mg/dL High 190 mg/dL and above Very High * Categories as recommended by the 2004 ATPIII guidelines LDL/HDL Ratio 1.9 <3.3 Ratio LDL Cholesterol Patient History Test Date: 07/05/2023 LDL Results: 86 Units: mg/dL % Change: - P-Iron Reviewed date:07/08/2023 09:01:12 AM Interpretation: Performing Lab: Notes/Report: Test performed by [facility] , [address], [place] [address] Baldo Ortega MD, Tail Board Worker CLIA: [id number] Iron 86 37-145 ug/dL P-T4 Free (thyroxine) Reviewed date:07/08/2023 09:01:12 AM Interpretation: Performing Lab: Notes/Report: [facility] , [address], [place] [address] Baldo Ortega MD, Tail Board Worker CLIA: [id number] Thyroxine Free (free T4) 1.03 0.86-1.76 ng/dL P-Ferritin Reviewed date:07/08/2023 09:01:12 AM Interpretation: Performing Lab: Notes/Report: Test performed by [facility] , [address], [place] [address] Baldo Ortega MD, Tail Board Worker CLIA: [id number] Ferritin 183.0 13.0-301.0 ng/mL P-Comprehensive Metabolic Pa jodi (CMP) Reviewed date:07/08/2023 09:01:12 AM Interpretation:Glu 105 Performing Lab: Notes/Report: [facility] , [facility], [place] [address] Baldo Ortega MD, Tail Board Worker CLIA: [id number] Sodium 141 135-145 mEq/L Potassium 4.4 3.5-5.3 mEq/L Chloride 100 97-108 mEq/L CO2 30 22-32 mEq/L Glucose 105 65-99 mg/dL BUN 13 8-23 mg/dL Creatinine 0.84 0.50-1.00 mg/dL Calcium 9.5 8.6-10.4 mg/dL eGFR by Creatinine 73 >59 mL/min/1.73m2 Protein 6.7 6.0-8.3 g/dL Albumin 4.2 3.5-5.3 g/dL Alkaline Phosphatase 104 35-121 IU/L ALT (SGPT) 17 <5-47 IU/L AST (SGOT) 18 <5-40 IU/L Bilirubin, Total 0.3 <0.2-1.2 mg/dL A/G Ratio 1.7 1.1-2.5 mg/dL P-Vitamin B12 Reviewed date:07/08/2023 09:01:12 AM Interpretation: Performing Lab: Notes/Report: Test performed by [facility], [address] , [address], [place] [address] Baldo Ortega MD, Tail Board Worker CLIA: [id number] Vitamin B12 611 045-1822 pg/mL Glycohemoglobin A1c (in hous e) Reviewed date:07/08/2023 09:01:12 AM Interpretation:5.7% Performing Lab: Notes/Report: 5.7% glycohemoglobin 5.7% 5 - 6.5 % CBC Venipuncture (in house) Reviewed date:07/05/2023 05:35:03 PM Interpretation: Performing Lab: Notes/Report: wbc 7.4 3.5 - 10 lymph 29.7 15 - 50 mid 5.6 2 - 15 gran 64.7 35 - 80 rbc 4.28 3.5 - 5.5 hgb 13.4 11.5 - 16.5 hct 38.8 35 - 55 mcv 90.7 75 - 100 mch 31.4 25 - 35 mchc 34.6 31 - 38 platlet 230 100 - 400 MEDICATIONS Medication SIG (Take, Route, Frequency, Duration) Notes Start Date End Date Status Omeprazole 40 MG TAKE 1 CAPSULE EVERY DAY for 90 Active Fluticasone Propionate 50 MCG/ACT 1 spray in each nostril in each nostril once a day Active Triamcinolone Acetonide 0.1 % APPLY TOPICALLY THREE TIMES DAILY for 60 Active Clopidogrel Bisulfate 75 MG 1 tablet Ora lly Once a day for 30 day(s) Active oxyBUTYnin Chloride ER 10 MG 1 tablet Orally Once a day for 30 day(s) Active Isosorbide Dinitrate 30 MG 1 tablet Oral ly once daily Active Cetirizine HCl 10 MG 1 tab(s) orally onc e a day for 90 days Active Metoprolol Succinate ER 25 MG TAKE 1 TABLET EVERY DAY for 90 Active Atorvastatin Calcium 80 MG 1 tablet Oral ly Once a day for 30 day(s) Active Lisinopril 5 MG 1 tab(s) orally once daily for 90 days Active Vitamin B-12 1000 MCG 1 tab(s) sublingua lly once a day Active Famotidine 20 MG 1 tab(s) orally as needed Active Ferrous Sulfate 325 (65 Fe) MG 1 tab(s) orally once a day Active PARoxetine HCl 20 MG 1 tab(s) orally onc e a day for 90 days Active Multivitamin - 1 tab(s) orally once a day Active IMMUNIZATIONS Vaccine Route Administration Date Status Comme nts COVID 19 Moderna Unknown 07/06/2020 Administered COVID 19 Moderna Unknown 03/16/2021 Administered Fluzone High Dose (65yr and older) IM Intramuscular 05/11/2015 Administered Fluzone High Dose (65yr and older) IM Intramuscular 02/18/2017 Administered Fluzone High Dose (65yr and older) IM Intramuscular 03/03/2018 Administered Fluzone High Dose (65yr and older) IM Intramuscular 03/12/2019 Administered Fluzone High Dose (65yr and older) IM Intramuscular 12/30/2019 Administered Fluzone High Dose (65yr and older) Unknown 04/18/2022 Administered Fluzone Quad (6months&older) Unknown 02/21/2023 Administered Fluzone Quad-Medicare (6months&older) IM Intramuscular 05/31/2016 Administered PNEUMOVAX 23 VACCINE IM Intramuscular 02/18/2017 Administe red Prevnar (PCV13) IM Intramuscular 05/11/2015 Administered Prevnar (PCV20) IM Intramuscular 07/05/2023 Administered SOCIAL HISTORY Sex Assigned At : Social History Observation Description Sex Assigned At Unknown PROBLEMS Problem Type ICD Code Onset Dates Problem Status W/U Status Risk SNOMED Code Notes Problem Overactive bladder (N32.81) Active confirmed 874337250 Problem Vitamin D deficiency (E55.9) Active confirmed Vitamin D deficiency (08497639) Problem Essential hypertension (I10) Active confirmed 99690205 Problem Anxiety (F41.9) Active confirmed Anxiet y (69750458) Problem BMI 32.0-32.9,adult (Z68.32) Active confirmed 423211514 Problem Thyroid nodule (E04.1) Active confirmed 650476669 Problem Gastroesophageal reflux disease without esophagitis (K21.9) Active confirmed Gastroesophagea l reflux disease without esophagitis (489167912) Problem Coronary artery disease involving [place] coronary artery of sk[place] heart without angina pectoris (I25.10) Active confirmed 8823837525911 Problem Iron deficiency anemia, unspecified iron deficiency anemia type (D50.9) Active confirmed Iron def iciency anemia (05167451) Problem Hyperlipidemia, unspecified hyperlipidemia type (E78.5) Active confirmed 91632512 Problem Atopic dermatitis, unspecified type (L20.9) Active confirmed Atopic dermatit is (75165148) Problem BMI 34.0-34.9,adult (Z68.34) Active confirmed Body mass index 30.00 to 34.99 (190180299665869) Problem Seasonal allergic rhinitis, unspecified trigger (J30.2) Active confirmed 488395371 Problem Allergic rhinitis, unspecified seasonality, unspecified trigger (J30.9) Active confirmed 65470284 Problem Morbidly obese (E66.01) Active confirmed Morbid obesity (089435000) VITAL SIGNS Heart Rate 98 /min 01/03/2024 Blood pressure diastolic 60 mm Hg 01/03/2024 Height 64.50 in 01/03/2024 Blood pressure systolic 120 mm Hg 01/03/2024 Weight 202.0 lbs 01/03/2024 BMI 34.13 kg/m2 01/03/2024 Encounters Encounter Location Date [facility] [address] [place] [id number] 07/05/2023 Alida Rowland Adult general medica l examination Z00.00 ; Overactive bladder N32.81 ; Allergic rhinitis, unspecified seasonality, unspecified trigger J30.9 ; Non-recurrent acute serous otitis media of right ear H65.01 ; Anxiety F41.9 ; Impaired fasting glucose R73.01 ; Gastroesophageal reflux disease without esophagitis K21.9 ; Essential hypertension I10 ; Iron deficiency anemia, unspecified iron deficiency anemia type D50.9 ; Hyperlipidemia, unspecified hyperlipidemia type E78.5 ; Coronary artery disease involving [place] coronary artery of [place] heart without angina pectoris I25.10 ; Vitamin B 12 deficiency E53.8 ; Vitamin D deficiency E55.9 ; Low TSH level R94.6 ; Diabetes mellitus screening Z13.1 ; Screening mammogram, encounter for Z12.31 ; Former smoker Z87.891 and BMI 32.0-32.9,adult Z68.32 [facility] [address] [place] [id number] 01/03/2024 Alida Rowland Overactive bladder N 32.81 ; Allergic rhinitis, unspecified seasonality, unspecified trigger J30.9 ; Anxiety F41.9 ; Impaired fasting glucose R73.01 ; Gastroesophageal reflux disease without esophagitis K21.9 ; Essential hypertension I10 ; Iron deficiency anemia, unspecified iron deficiency anemia type D50.9 ; Hyperlipidemia, unspecified hyperlipidemia type E78.5 ; Coronary artery disease involving [place] coronary artery of sk[place] heart without angina pectoris I25.10 ; Vitamin B 12 deficiency E53.8 ; Vitamin D deficiency E55.9 and Low TSH level R94.6 [facility] [address] [place], [place] [id number] 07/08/2023 Alida Crowdy [facility] [address] [place], [place] [id number] 07/29/2023 Alida Rowland Hiatal hernia K44.9 [facility] [address] [facility] [address] [place], [place] [id number] 08/01/2023 Antony [place] Overactive bladder N 32.81 [facility] [address] [place], [place] [id number] 08/23/2023 Alida Rowland [facility] [address] [facility] [address] [place], [place] [id number] 12/13/2023 Alida Rowland ASSESSMENTS Encounter Date Diagnosis Assessment Notes Treatment Notes Treatment Clinical Notes 07/05/2023 Overactive bladder (ICD-10 - N32.81) 07/05/2023 Adult general medica l examination (ICD-10 - Z00.00) Patient instructed to return to office Annually for Annual Wellness Visits to include annual screenings of Pain assessment, Functional Ability assessment, Cognitive Ability assessment, Fall Risk assessment, Depression screening and Bladder control screening. 07/29/2023 Hiatal hernia (ICD-1 0 - K44.9) 08/01/2023 Overactive bladder (ICD-10 - N32.81) 01/03/2024 Overactive bladder (ICD-10 - N32.81) 07/05/2023 Allergic rhinitis, unspecified seasonality, unspecified trigger (ICD-10 - J30.9) 01/03/2024 Allergic rhinitis, unspecified seasonality, unspecified trigger (ICD-10 - J30.9) 01/03/2024 Anxiety (ICD-10 - F41.9) 07/05/2023 Non-recurrent acute serous otitis media of right ear (ICD-10 - H65.01) 01/03/2024 Impaired fasting glucose (ICD-10 - R73.01) 07/05/2023 Anxiety (ICD-10 - F41.9) 07/05/2023 Impaired fasting glucose (ICD-10 - R73.01) 01/03/2024 Gastroesophageal ref lux disease without esophagitis (ICD-10 - K21.9) 01/03/2024 Essential hypertensi on (ICD-10 - I10) 07/05/2023 Gastroesophageal ref lux disease without esophagitis (ICD-10 - K21.9) 07/05/2023 Essential hypertensi on (ICD-10 - I10) 01/03/2024 Iron deficiency anem ia, unspecified iron deficiency anemia type (ICD-10 - D50.9) 01/03/2024 Hyperlipidemia, unspecified hyperlipidemia type (ICD-10 - E78.5) 07/05/2023 Iron deficiency anem ia, unspecified iron deficiency anemia type (ICD-10 - D50.9) 07/05/2023 Hyperlipidemia, unspecified hyperlipidemia type (ICD-10 - E78.5) 01/03/2024 Coronary artery dise ase involving [place] coronary artery of sk[place] heart without angina pectoris (ICD-10 - I25.10) 01/03/2024 Vitamin B 12 deficie ncy (ICD-10 - E53.8) 07/05/2023 Coronary artery dise ase involving [place] coronary artery of sk[place] heart without angina pectoris (ICD-10 - I25.10) 07/05/2023 Vitamin B 12 deficie ncy (ICD-10 - E53.8) 01/03/2024 Vitamin D deficiency (ICD-10 - E55.9) 01/03/2024 Low TSH level (ICD-1 0 - R94.6) 07/05/2023 Vitamin D deficiency (ICD-10 - E55.9) 07/05/2023 Low TSH level (ICD-1 0 - R94.6) 07/05/2023 Diabetes mellitus screening (ICD-10 - Z13.1) 07/05/2023 Screening mammogram, encounter for (ICD-10 - Z12.31) 07/05/2023 Former smoker (ICD-1 0 - Z87.891) 07/05/2023 BMI 32.0-32.9,adult (ICD-10 - Z68.32) PLAN OF TREATMENT Pending Test Test Name Order Date H-TSH 01/03/2024 H-CBC 01/03/2024 H-VITAMIN D 01/03/2024 H-Lipid Panel 01/03/2024 H-CMP 01/03/2024 H-Glycohemoglobin A1C 01/03/2024 H-VITAMIN B12 01/03/2024 H-T4 free 01/03/2024 H-Ferritin 01/03/2024 H-Iron 01/03/2024 Next Appt Details Provider Name:Alida tinoco, 01/03/2024 09:00:00 AM, [address] [facility] [address], [place], [place], [id number], Insurance Providers Payer Name Payer Address Payer Phone Subscriber Number Group Number Insured Name Patient Relationship to Insured Coverage Start Date Coverage End Date [employer] (MEDICARE) [address] [address] [place] [address] [id number] Neha Middleton Self - patient is the insured [employer] [address] [place] [id number] Neha Middleton Self - patient is the insured MEDICATIONS ADMINISTERED Medication Instructions Date of Administration Dosage Notes Dexamethasone 11/17/2007 4 mg MEDICAL (GENERAL) HISTORY Medical History History ICD Code Coronary Artery Disease Heart attack, 2005 Latent TB Hypertension hyperlipidemia colitis overactive bladder Left ankle fracture 80 pack year smoking history, quit in 16 10 Colon polyps 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
--- OUTSIDE RECORDS SUMMARY | 2024-01-03 09:48 | XMS_ITS ---
Author Organization [facility] Address [address] [place] [id number] Care Team Providers Care Boulevard Glassware Replacer Name Role Phone Antony Patino Primary Care Provider Alida Rowland Unavailable [phone] REASON FOR VISIT 6 month recheck with repeat fasting labs MEDICATIONS Medication SIG (Take, Route, Frequency, Duration) Notes Start Date End Date Status oxyBUTYnin Chloride ER 10 MG 1 tablet Orally Once a day for 30 day(s) Active Cetirizine HCl 10 MG 1 tab(s) orally onc e a day for 90 days Active Metoprolol Succinate ER 25 MG TAKE 1 TABLET EVERY DAY for 90 Active Lisinopril 5 MG 1 tab(s) orally once daily for 90 days Active PARoxetine HCl 20 MG 1 tab(s) orally onc e a day for 90 days Active Omeprazole 40 MG TAKE 1 CAPSULE EVERY DAY for 90 Active Triamcinolone Acetonide 0.1 % APPLY TOPICALLY THREE TIMES DAILY for 60 Active Vitamin B-12 1000 MCG 1 tab(s) sublingua lly once a day Active Famotidine 20 MG 1 tab(s) orally as needed Active Multivitamin - 1 tab(s) orally once a day Active Fluticasone Propionate 50 MCG/ACT 1 spray in each nostril in each nostril once a day Active Clopidogrel Bisulfate 75 MG 1 tablet Ora lly Once a day for 30 day(s) Active Isosorbide Dinitrate 30 MG 1 tablet Oral ly once daily Active Atorvastatin Calcium 80 MG 1 tablet Oral ly Once a day for 30 day(s) Active Ferrous Sulfate 325 (65 Fe) MG 1 tab(s) orally once a day Active VITAL SIGNS Weight 202.0 lbs 01/03/2024 Blood pressure systolic 120 mm Hg 01/03/20 24 Blood pressure diastolic 60 mm Hg 024 Heart Rate 98 /min 01/03/2024 Height 64.50 in 01/03/2024 BMI 34.13 kg/m2 01/03/2024 Encounters Encounter Location Date Provider Diagnosis [facility] [address] [place], [place] [id number] 01/03/2024 Alida Rowland Overactive bladder N 32.81 ; Allergic rhinitis, unspecified seasonality, unspecified trigger J30.9 ; Anxiety F41.9 ; Impaired fasting glucose R73.01 ; Gastroesophageal reflux disease without esophagitis K21.9 ; Essential hypertension I10 ; Iron deficiency anemia, unspecified iron deficiency anemia type D50.9 ; Hyperlipidemia, unspecified hyperlipidemia type E78.5 ; Coronary artery disease involving inupiat coronary artery of inupiat heart without angina pectoris I25.10 ; Vitamin B 12 deficiency E53.8 ; Vitamin D deficiency E55.9 and Low TSH level R94.6 ASSESSMENTS Encounter Date Diagnosis Assessment Notes Treatment Notes Treatment Clinical Notes 01/03/2024 Overactive bladder (ICD-10 - N32.81) 01/03/2024 Allergic rhinitis, unspecified seasonality, unspecified trigger (ICD-10 - J30.9) 01/03/2024 Anxiety (ICD-10 - F41.9) 01/03/2024 Impaired fasting glucose (ICD-10 - R73.01) 01/03/2024 Gastroesophageal ref lux disease without esophagitis (ICD-10 - K21.9) 01/03/2024 Essential hypertensi on (ICD-10 - I10) 01/03/2024 Iron deficiency anem ia, unspecified iron deficiency anemia type (ICD-10 - D50.9) 01/03/2024 Hyperlipidemia, unspecified hyperlipidemia type (ICD-10 - E78.5) 01/03/2024 Coronary artery dise ase involving inupiat coronary artery of inupiat heart without angina pectoris (ICD-10 - I25.10) 01/03/2024 Vitamin B 12 deficie ncy (ICD-10 - E53.8) 01/03/2024 Vitamin D deficiency (ICD-10 - E55.9) 01/03/2024 Low TSH level (ICD-1 0 - R94.6) PLAN OF TREATMENT Medication Medication Name Sig Start Date Stop Date Notes Fluticasone Propionate 50 MCG/ACT 1 spray in each nostril in each nostril once a day Pending Test Test Name Order Date H-TSH 01/03/2024 H-CBC 01/03/2024 H-VITAMIN D 01/03/2024 H-Lipid Panel 01/03/2024 H-CMP 01/03/2024 H-Glycohemoglobin A1C 01/03/2024 H-VITAMIN B12 01/03/2024 H-T4 free 01/03/2024 H-Ferritin 01/03/2024 H-Iron 01/03/2024 Next Appt Details Provider Name:Alida Nñuez Ervinosiel earnest, 01/03/2024 09:00:00 AM, [address] [facility] [address] [facility], [address] , [place], [place], [id number], History and Physical Notes * HPI (History of Present Illness) Category Sub-Category Detail Notes HPI Patient is here today for Pt is here today for 6 month check up and fasting labs. Pt sts she is checking up on her hernia. Pt sts she goes next Saturday to find out when she is having surgery. Pt sts she is fasting today
--- OUTSIDE RECORDS SUMMARY | 2024-01-03 09:48 | XMS_ITS ---
Author Organization [facility] Address [address] [facility] [address] [facility] [address] [place] [id number] Care Team Providers Care Hot Frame Tender Name Role Phone Antony Patino Primary Care Provider [phone] Alida Alfonso [phone] REASON FOR VISIT Refills MEDICATIONS Medication SIG (Take, Route, Fr equency, Duration) Notes Start Date End Date Status Cetirizine HCl 10 MG 1 tab(s) orally onc e a day for 90 days Active Encounters Encounter Location Date Provider Diagnosis [facility] [address] [facility] [address] [facility] [address] [place] [phone] 12/13/2023 Alida Rowland PLAN OF TREATMENT Medication Medication Name Sig Start Date Stop Date Notes Cetirizine HCl 10 MG 1 tab(s) orally onc e a day for 90 days Next Appt Details Provider Name:Alida tinoco, 01/03/2024 09:00:00 AM, [address] [facility] [address] [facility], [address], [place], [phone],
--- OUTSIDE RECORDS SUMMARY | 2024-01-03 09:48 | XMS_ITS ---
Author Organization [facility] Address [address] [facility] [address] [facility] [address] [place] [id number] Care Team Providers Care Agriculture Department Chair Name Role Phone Sukumar Antony Primary Care Provider Alida Rowland Unavailable [phone] REASON FOR VISIT refer to Dr. Gomes for consult and repeat EGD Encounters Encounter Location Date Provider Diagnosis [facility] [address] [facility] [address] [place] [phone] 08/23/2023 Alida Rowland PLAN OF TREATMENT Next Appt Details Provider Name:Alida tinoco, 01/03/2024 09:00:00 AM, [address] [facility], [address], [place], [phone],
[2024-01-03 10:14] LABS: Basophils # 0.1 K/mm3 (0-0.2); Eosinophils # 0.3 K/mm3 (0.0-0.4); Eosinophils % 3.7 % (0.1-12.0); Hematocrit 39.8 % (37.0-47.0); Hemoglobin 13.4 g/dL (12.2-16.2); Lymphocytes # 2.1 K/mm3 (0.7-4.5); Lymphocytes % 29.6 % (10-50); Mean Corpuscular HGB Conc 33.7 g/dL (31.8-35.4); Mean Corpuscular Hemoglobin 31.9 pg (27.0-31.2); Mean Corpuscular Volume 94.7 fl (81-99); Mean Platelet Volume 8.6 fl (7.4-10.4); Monocytes # 0.4 K/mm3 (0.1-1.0); Monocytes % 6.1 % (1.7-9.3); Neutrophils # 4.1 K/mm3 (1.8-7.8); Neutrophils % 59.7 % (37.0-80.0); Platelet Count 230 K/mm3 (142-424); Red Cell Distribution Width 13.6 % (11.5-17.5); White Blood Count 6.9 K/mm3 (4.8-10.8)
[2024-01-03 11:14] LABS: Alanine Aminotransferase 33 U/L (12-78); Albumin Level 3.8 g/dl (3.5-5.0); Alkaline Phosphatase 79 U/L (38-126); Aspartate Amino Transferase 30 U/L (14-36); Bilirubin,Direct 0.1 mg/dl (0.0-0.4); Bilirubin,Indirect 0.4 mg/dL (0.0-0.9); Bilirubin,Total 0.5 mg/dl (0.2-1.3); Bilirubin,Unconjugated 0.4 mg/dL (0.0-1.1); Chol/HDL Ratio 3.4 (1-3.5); Cholesterol 158 mg/dl (140-200); HDL Cholesterol 46 mg/dl (40-60); Magnesium 1.8 mg/dl (1.6-2.3); Total Protein,Serum 6.3 g/dl (6.3-8.2); Triglycerides 161 mg/dl (30-150); VLDL Cholesterol 32 mg/dL (0-40)
[2024-01-03 11:15] LABS: Alanine Aminotransferase 33 U/L (12-78); Albumin Level 3.8 g/dl (3.5-5.0); Albumin/Globulin Ratio 1.5 (1.1-1.8); Alkaline Phosphatase 79 U/L (38-126); Anion Gap 9.3 mEq/L (5-15); Aspartate Amino Transferase 31 U/L (14-36); Bilirubin,Total 0.5 mg/dl (0.2-1.3); Blood Urea Nitrogen 15 mg/dl (7-17); Calcium 9.2 mg/dl (8.4-10.2); Carbon Dioxide 28 mmol/L (22.0-30.0); Chloride 104 mmol/L (98-107); Estimated Glomerular Filt Rate 82 ml/min (>60); GFR (African American) 99 ML/MIN (>60); Globulin 2.5 g/dL (1.3-3.2); Glucose 106 mg/dl (74-100); Potassium 4.3 mmoL/L (3.5-5.1); Sodium 137 mmol/L (136-145); Total Protein,Serum 6.3 g/dl (6.3-8.2)
[2024-01-03 11:25] LABS: Direct LDL Cholesterol 80.52 mg/dL (100-129)
[2024-01-03 11:28] LABS: Hemoglobin A1C 5.6 % (4.0-6.0)
[2024-01-03 11:31] LABS: 25-OH Vitamin D, Total 46.4 ng/mL (30-100)
[2024-01-03 11:31] LABS: Free T4 (Free Thyroxine) 0.79 ng/dl (0.78-2.19)
[2024-01-03 11:45] LABS: Thyroid Stimulating Hormone 2.04 uIU/mL (0.465-4.68)
[2024-01-03 13:53] LABS: Iron 93 ug/dL (37-170)
[2024-01-03 14:29] LABS: Ferritin 88.4 ng/ml (11.1-264)
[2024-01-03 16:53] LABS: Vitamin B12 880 pg/mL (239-931)
== END 2024-01-03 23:59 | disposition home or self-care (01) ==
LOC: LAB 09:46
PROVIDERS: Physician Assistant; PCP Family Medicine; Visit Provider Internal Medicine
DX: E78.2 Mixed hyperlipidemia (principal); I51.89 Other ill-defined heart diseases; I27.20 Pulmonary hypertension, unspecified; K21.9 Gastro-esophageal reflux disease without esophagitis; I25.10 Atherosclerotic heart disease of native coronary artery without angina pectoris; I10 Essential (primary) hypertension; R73.01 Impaired fasting glucose; D50.9 Iron deficiency anemia, unspecified; E55.9 Vitamin D deficiency, unspecified; E53.8 Deficiency of other specified B group vitamins; R94.6 Abnormal results of thyroid function studies; Z79.899 Other long term (current) drug therapy
CPT/HCPCS: 36415; 80053; 80061; 80076; 82306; 82607; 82728; 83036; 83540; 83735; 84439; 84443; 85025

== ENCOUNTER 2024-01-28 14:19 | Outpatient (POV) | payer MEDICARE, MEDICAID, SELFPAY | END 2024-01-28 23:59 | disposition home or self-care (01) | LOC: SC 14:20 | PROVIDERS: Visit Provider Specialist/Technologist | DX: Z00.00 Encounter for general adult medical examination without abnormal findings (principal) ==

== ENCOUNTER 2024-10-26 13:29 | Outpatient (CLI) | payer MEDICARE, MEDICAID, SELFPAY ==
--- OUTSIDE RECORDS SUMMARY | 2024-09-17 09:45 | XMS_ITS ---
Author Organization [facility] Address [address] [place] [id number] Care Team Providers Care Scrap Materials Buyer Name Role Phone Antony Patino Primary Care Provider [phone] Alida Rowland Unavailable [phone] Allergies No Known Allergies Results Component Value [...] 5.9 Performing Lab: Notes/Report: Test performed by [facility] [address] [place] [address] , [address], [place] [address] Baldo Ortega MD, Clinical Documentation Clerk CLIA: [id number] Sodium 142 135-145 mmol/L Potassium 3.5 3.5-5.3 [...] Interpretation:Normal Performing Lab: Notes/Report: Test performed by [facility], [address] , [address], [place] [address] Baldo Ortega MD, Clinical Documentation Clerk CLIA: [id number] Magnesium 1.8 1.6-2.4 mg/dL Reason For Referral Diagnosis 1 Nausea with vomiting , unspecified (R11.2) Referral Organization [facility] Referring Provider First Name Alida Referring Provider Last Name Kashif Referring Provider Speciality Physician Poultry Farm Laborer Referred Provider Gastroenterology, . Referred Provider Specialty [...] [facility] [address] [phone] 09/17/2024 Alida Rowland Nausea with vomiting , [...] phone to repo rt test results, Reason: Provider Name:Antony Kingsley ry, 11/02/2024 10:15:00 AM, [address], [address], [place], [place], [id number], Progress Notes * Neha SANCHEZEDOB:0 1950 (74 yo F)Acc No.[id number]:09/17/2024 Progress Notes Patient: Neha TENORIO Provider: JOSE CARLOS Arias :1950 A ge:74 Y S ex:Female Date:09/17/2024 Address:[address] [place] [address] , [address], [place], [place] Pcp:Antony Patino Subjective: * Chief Complaints: * [...] Mother: . C scott: RA, diagnosed with Mental Illness, Diabetes. S johnraghu: diagnosed with Heart Disease. 1 brother(s) , [...] ther constipation - K59.09 4 . B [place] 29.0-29.9,adult - Z68.29 5 . A nxiety [...] G 2211 Complex e/[place], [address] CBC WITH AUTO DIFF, 3074F SYST BP [...] * Images: Billing Information: * Visit Code: 19046 Office Visit, Est Pt., Level 4. * Procedure Codes: G2211 Complex e/[place]. [address] CBC WITH AUTO DIFF. 3074F SYST BP LT 130 MM HG. 3078F DIAST BP < 80 MM HG. G8420 BMI<30 AND >=22 CALC & DOCU. G8950 PREHTN/HTN BP DOC INDCD F/U DOC. G8752 MOST RECENT SYSTOLIC BP < 140MM HG. G8754 MOST RECENT DIASTOLIC BP < 90MM HG. * Electronic signature of JOSE CARLOS Laureano on 10/26/2024 at 01:33 PM EDT Sign off status: Pending * Provider: JOSE CARLOS Arias Date: 0 09/17/2024 Generated for Brandon hernandez/Raina/eTransmitting on: 0 10/26/2024 01:33 PM EDT History and Physical Notes * [...]
--- OUTSIDE RECORDS SUMMARY | 2024-09-29 07:30 | XMS_ITS ---
Author Organization [facility] Address [address] [place] [id number] Care Team Providers Care Surfboard Designer Name Role Phone Antony Patino Primary Care Provider [phone] Allergies No Known Allergies Results Component Value [...] Interpretation:25 Performing Lab: Notes/Report: Test performed by [facility] [address] [place], [place] [address] [place] , [address], [place] [address] Baldo Ortega MD, Regional Recruiter CLIA: [id number] Amylase 25 28-100 U/L P-Comprehensive Metabolic Pa jodi (CMP) Reviewed date:09/30/2024 01:46:16 PM Interpretation:Na 146, glu 137, BUN 7 Performing Lab: Notes/Report: Test performed by [facility] [address] [place], [place] [address] [place] , [address], [place] [address] Baldo Ortega MD, Regional Recruiter CLIA: [id number] Sodium 146 135-145 mmol/L Potassium 3.6 3.5-5.3 [...] Interpretation:Normal Performing Lab: Notes/Report: Test performed by [facility] [address] [place] [address] , [address] [place] [id number] Baldo Ortega MD, Regional Recruiter CLIA: [id number] Lipase 14.5 13.0-60.0 u/L P-Prothrombin Time (PT) Reviewed date:09/30/2024 01:46:16 PM Interpretation:Normal Performing Lab: Notes/Report: Test performed by [facility] [address] [place] [address] , [place] [address] Baldo Ortega MD, Regional Recruiter CLIA: [id number] PT 10.9 9.5-12.2 sec INR 1.0 0.9-1.2 [...] Interpretation:Normal Performing Lab: Notes/Report: Test performed by [facility], [address] , [address], [place] [address] Baldo Ortega MD, Regional Recruiter CLIA: [id number] Partial Thromboplastin Time (PTT) 27.0 23.9-33.0 sec [...] 09/29/2024 Encounters Encounter Location Date Provider Diagnosis [facility] [address] [facility] [address] [facility] [address] [place], [place] [id number] 09/29/2024 Antony Patino Easy bruising R23.3 ; [...] via phone to repo rt progress, Reason: Provider Name:Antony Kingsley ry, 11/02/2024 10:15:00 AM, [address] [facility] [address], [address], [place], [id number], Progress Notes * Nhea SANCHEZEDOB:0 1950 (74 yo F)Acc No.[id number]:09/29/2024 Progress Notes Patient: Yusuf LUCIA Edna OSVALDO Provider: Babatunde Patino M.D. :1950 A ge:74 Y S ex:Female Date:09/29/2024 Address:[address] [place] [address] , [address], [place] Subjective: * Chief Complaints: * 1 . [...] . M aternal Grand Mother: . C hildren: RA, diagnosed with Diabetes, Mental Illness. S ibraghu: diagnosed with Heart Disease. 1 brother(s) , [...] vomiting type - R11.2 3 . B IL 28.0-28.9,adult - Z68.28 Plan: * Treatment: Value [...] G 2211 Complex e/[place], [address] CBC WITH AUTO DIFF, 1036F TOBACCO NON-USER, G8420 BMI<30 AND >=22 CALC & DOCU, G8783 BP SCR PRFRM RCMDD DEFIND SCR INTVL, G8752 MOST RECENT SYSTOLIC BP < 140MM HG, G8754 MOST RECENT DIASTOLIC BP < 90MM HG * Follow Up: v ia phone to report progress * Images: Billing Information: * Visit Code: 32182 Office Visit, Est Pt., Level 4. * Procedure Codes: G2211 Complex e/[place]. [address] CBC WITH AUTO DIFF. 1036F TOBACCO NON-USER. G8420 BMI<30 AND >=22 CALC & DOCU. G8783 BP SCR PRFRM RCMDD DEFIND SCR INTVL. G8752 MOST RECENT SYSTOLIC BP < 140MM HG. G8754 MOST RECENT DIASTOLIC BP < 90MM HG. * Electronic signature of Karen Patino MD on 10/26/2024 at 01:32 PM EDT Sign off status: Pending * Provider: Babatunde Patino M.D. Date: 0 09/29/2024 Generated for Brandon hernandez/Raina/eTransmitting on: 0 10/26/2024 01:32 PM EDT History and Physical Notes * [...]
--- OUTSIDE RECORDS SUMMARY | 2024-10-12 08:04 | XMS_ITS ---
[facility] [address] [facility] [address] [facility] [address] [place] [id number] Care Team Providers Care Ecological Technical Officer Name Role Phone Antony Patino Primary Care Provider [phone] REASON FOR VISIT due bone density & colonoscopy Encounters Encounter Location Date Provider Diagnosis [facility] [address] [facility] [address] [facility] [address] [place] [id number] 10/12/2024 Antony Patino Screening for osteoporosis Z13.820 and Screening for breast cancer Z12.39 Assessments Encounter Date Diagnosis (ICD Code) Assessment Notes Treatment Notes Treatment Clinical Notes Section Notes 10/12/2024 Screening for osteoporosis (ICD-10 - Z13.820) 10/12/2024 Screening for breast cancer (ICD-10 - Z12.39) Plan Of Treatment Pending Test Test Name Order Date Bone density 10/12/2024 Mammogram 10/12/2024 Next Appt Details Provider Name:Antony Kingsley ry, 11/02/2024 10:15:00 AM, [address] [facility], [address], [place], [id number], Progress Notes * Neha SANCHEZEDOB:0 1950 (74 yo F)Acc No.[id number]:10/12/2024 Patient: Neha TENORIO :1950 A ge:74 Y S ex:Female Address:[address] [place] [address] , [address], [place] [address] Subjective: * Chief Complaints: * D ue bone density & colonoscopy * Medical History: * Surgical History: * Hospitalization/Major Diagno stic Procedure: * Medications: Objective: * Vitals: * Physical Examination: Assessment: * Assessment: 1. S creening for osteoporosis - Z13.820 (Primary) 2 . S creening for breast cancer - Z12.39 Plan: * Treatment: 2.?Screening for breast cancer?Imaging: Mammogram* [facility] * Procedure Codes: * true * Date: Generated for Brandon hernandez/Raina/eTransmitting on: 0 10/26/2024 01:33 PM EDT
--- OUTSIDE RECORDS SUMMARY | 2024-10-26 13:33 | XMS_ITS | Clinical Summary ---
Author Organization [facility] Address [address] [facility] [address] [place] [address] Phone Care Team Providers Care Construction Foreman Name Role Phone Amber ERIC, Amador Hanosn [phone] Conditions or Problems Problem Name Problem Code Onset Date Status Entry Date Provider Comment Standard Description Annotate Chorioretinit is, bilateral 74902155 (SNOMED CT) 06/16 Active 06/16 Amador Clark MD Chorioretinitis Constipation 78593591 (SNOMED CT) 05/18 Active 05/24 Amador Clark MD Constipation Loss of vision 635295293 (SNOMED CT) 05/04 Active 05/05 Amador Clark MD 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 PYRIDOXINE HCL [id number] Amador Clark MD ISONIAZID 300 MG TABS Take one by mouth daily. ISONIAZID 50382593216 Amador Clark MD RIFAMPIN 300 MG CAPS Take two capsules (600mg) po daily. RIFAMPIN 78130187229 Amador Clark MD OMEPRAZOLE 40 MG CPDR Take 1 tablet by mouth daily OMEPRAZOLE 35464434171 Barb Petitey MYRBETRIQ 50 MG RR25J-DOB Take 1 tablet by mouth daily MIRABEGRON 34752403874 Barb Petitey METOPROLOL SUCCINATE ER 25 MG MW18W-VZL Take 1 tablet by mouth daily METOPROLOL SUCCINATE 42633114921 Barb Petitey LISINOPRIL 5 MG TABS Take 1 tablet by mouth daily LISINOPRIL 50642631269 Barb Petitey FUROSEMIDE 20 MG TABS Take 1 tablet by mouth daily FUROSEMIDE 37056291483 Barb Petitey CITALOPRAM HYDROBROMIDE 20 MG TABS Take 1 tablet by mouth daily CITALOPRAM HYDROBROMIDE [id number] aBrb Petitey ATORVASTATIN CALCIUM 40 MG TABS Take 1 tablet by mouth daily ATORVASTATIN CALCIUM 74056820278 Barb Petitey Medications Administered No information available. Allergies, Adverse Reactions, Alerts No information available. Results Date Name Value Unit Range Flag Description Lab Report: COMPREHENSIVE ME TABOLIC PANEL, CBC W/DIFFERENTIAL IMM GRANU % 0.4 % 0.0-0.6 N Immature granulocytes/100 leukocytes in Blood BASOPHIL % 0.9 % 0.0-1.0 N Basophils/ 100 leukocytes in Blood by Manual count EOSINOPHIL % 3.4 % 0.0-3.0 H Eosinoph ils/100 leukocytes in Blood by Manual count MONOCYTE % 7.7 % 0.0-12.0 N Monocytes /100 leukocytes in Blood by Automated count PMN % 54.5 % 41.0-71.0 N Neutrophils /100 leukocytes in Blood by Automated count NRBCS/100WBC 0.0 % 0.00-0.00 N nuclea dudley red blood cells as percent of blood leukocytes ABSIMMGRAN 0.03 10*3/uL 0.00-0.03 N Immature Granulocytes (absolute count) BASO# 0.08 10*3/mm3 0.00-0.20 N Basophils [#/vol ume] in Blood EOS ABSLT 0.29 10*3/uL 0.00-0.30 N Eosinophi ls [#/volume] in Blood MONOSCT AUTO 0.65 10*3/uL 0.00-1.00 N Monocy sheng [#/volume] in Blood by Automated count LYMPHCT AUTO 2.79 10*3/mm3 0.60-4.80 N Lymph ocytes [#/volume] in Blood by Automated count ABS NEUTROPH 4.60 10*3/uL 1.50-8.30 N Neutro phils [#/volume] in Blood MPV 10.8 fL 6.0-12.0 N Platelet royce n volume [Entitic volume] in Blood by Aishwarya RDW-SD 42.7 fL 37.0-54.0 N Erythrocyte distribution width [Entitic volume] by Automated count RDW_ 12.4 11.3-14.5 N RDW, no uni ts MCHC 32.5 G/DL 32.0-36.0 N MCHC [Mass/ volume] by Automated count MCH 30.9 pg 27.0-31.0 N MCH [Entiti c mass] by Automated count MCV 95.3 fL 80.0-99.0 N MCV [Entiti c volume] by Automated count EGFR IF AFA 97 mL/min/1. 73m2 >60 N Glomerular filtration rate/1.73 sq M.predicted among blacks [Volume Rate/Area] in Serum, Plasma or Blood by Creatinine-based formula (MDRD) EGFR 80 mL/min/1. 73m2 >60 N Glomerular filtration rate/1.73 sq M.predicted [Volume Rate/Area] in Serum, Plasma or Blood by Creatinine-based formula (MDRD) ANIONGAP 12.0 mmol/L 3-11 H anion gap, s suly A/G RATIO 1.7 g/dL 1.5-2.5 N Albumin/Rosa bulin [Mass Ratio] in Serum or Plasma GLOBULIN 2.5 Globulin [Mass/volume] in Serum ALBUMIN 4.30 g/dL 3.2-4.8 N Albumin [Mass/volume] in Serum or Plasma PROTEIN, TOT 6.8 g/dL 5.7-8.2 N Protein [Mass/volume] in Serum or Plasma CO2 28.0 mmol/L 20-31 N Carbon dioxid e, total [Moles/volume] in Venous blood CHLORIDE 98 mmol/L 99-109 L Chloride [Moles/volume] in Serum or Plasma BUN/CREAT 13.9 7.0-25.0 N Urea nitrogen/Creatinine [Mass Ratio] in Serum or Plasma Chart Maintenance: CBC, CMP - 04/09/19 LYMPHS % 40 % Lymphocytes/ 100 leukocytes in Blood by Automated count Chart Maintenance: lab LYMPHOCY BF 37 % lymphocyt es as percent of body fluid leukocytes NEUTROP BF 54 % Neutrophil s/100 leukocytes in Body fluid PLATELETS 281 10*3/mm3 Platelets [#/volume] in Blood by Automated count HCT 34.5 % Hematocrit [V olume Fraction] of Blood by Automated count HGB 11.4 g/dL Hemoglobin [Mass/volume] in Blood RBC 3.61 10*6/mm3 Erythrocytes [#/volume] in Blood by Automated count WBC 5.9 10*3/mm3 Leukocytes [#/volume] in Blood by Automated count BILI TOTAL 0.3 mg/dL Bilirubin. total [Mass/volume] in Serum or Plasma SGOT (AST) 18 U/L Aspartate aminotransferase [Enzymatic activity/volume] in Serum or Plasma SGPT (ALT) 19 U/L Alanine aminotransferase [Enzymatic activity/volume] in Serum or Plasma ALK PHOS 66 U/L Alkaline niles sphatase [Enzymatic activity/volume] in Blood CREATININE 0.8 mg/dL Creatinine [Mass/volume] in Serum or Plasma BUN 13 mg/dL Urea nitrogen [Mass/volume] in Serum or Plasma CALCIUM 6.8 mg/dL Calcium [Moles/volume] in Serum or Plasma POTASSIUM 4.0 mmol/L Potassium [Moles/volume] in Serum or Plasma SODIUM 136 mmol/L Sodium [Moles/volume] in Serum or Plasma GLUCOSE SER 116 mg/dL Glucose [Mass/volume] in Serum or Plasma Office Visit: room 5 MEDS REVIEW Done Documenta tion of current medications (procedure) ORALTOBACUSE Never Tobacco smoking status SMOK STATUS Never smoker Tobacco smoking status Plan of Care Type Date Detail Pending order CBC with Differe ntial Pending order CMP Pending order Continue oral an tibiotics Pending order CBC with Differe ntial Pending order CMP Pending order Continue oral an tibiotics Pending order STAT Labs Pending order New Oral Antibio tic Pending order STAT Labs Pending order CBC with Differe ntial Pending order CMP Patient education Medications Procedures Code Procedure Name Date Entry Date CPT-Cooral Continue oral antibiotics 16/04/18 G2879c,[id number] CBC with Differential 2018 CPT-29400 CMP CPT-Cooral Continue oral antibiotics 17/03/20 CPT-sl STAT Labs CPT-arturo New Oral Antibiotic CPT-sl STAT Labs Z4925g,[id number] CBC with Differential 2018 CPT-83412 CMP Vital Signs Date Name Value Unit Description BMI (Body Mass Index) 30.73 kg/m2 Bod y Mass Index (Ratio) Body Temperature 98.2 [degF] temperat ure E&M BP Diastolic 80 mm[Hg] blood pressu re, diastolic BP Systolic 124 mm[Hg] blood pressur e, systolic Heart Rate 72 /min pulse rate Respiratory Rate 16 /min respirat ory rate E&M Weight Measured 190.4 [lb_av] weight E& M Weight Measured 190.4 [lb_av] weight E& M Height 66 [in_us] height E&M Immunizations No information available. Advance Directives No information available.
--- OUTSIDE RECORDS SUMMARY | 2024-10-26 13:33 | XMS_ITS | Clinical Summary ---
Author Organization [facility] Address [address] [place] [address] Care Team Providers Care Appointment Coordinator Name Role Phone Antony Patino MD Primary Care Provider + [phone] Family History Medical History Relation Name Comments Cardiac disorder Father Cataracts Father Diabetes Father Cardiac disorder Other 1 Cataracts Other 2 Diabetes Other 3 Glaucoma Other 4 Glaucoma Other 5 Other cancer Other 6 Other cancer Other 7 Relation Name Status Comments Father Other 1 Other 2 Other 3 Other 4 Other 5 Other 6 Other 7 Social History Tobacco Use Types Packs/Day Years Used Date Smoking Tobacco: Never Alcohol Use Standard Drinks/Week Comments No 0 (1 standard drink = 0.6 oz pure alcohol) Alcoholic Drinks/day: No history of alcohol use Comments Unknown Sex and Gender Information Value Date Recorded Sex Assigned at Not on file Legal Sex Female 6:00 PM EDT Gender Identity Not on file Sexual Orientation Not on file Plan of Treatment Not on file Care Teams Appointment Coordinator Relationship Specialty Start Date End Date Antony Patino MD [address] [place] [address] PCP - General 09/09/20
--- OUTSIDE RECORDS SUMMARY | 2024-10-26 13:33 | XMS_ITS ---
Author Organization Unknown Results OrderDate OrderTestName ResultName ResultDate Value Units Range AbnormalFlag ResultStatus ObservationNotes TestCode ResultCode DateRecorded AccessionNumber DiagnosticSectionCode DiagnosticSectionName Sequence Interpretation 07/28/2024 00:00:00 P-Basic Metabolic Panel (BMP) eGFR by Creatinine 8720-75-13W29:00:00 92 mL/min/1.73m2 >59 - mL/min/1.73m2 Reviewed eYn Valdes 07/29/2024 9:27:25 AM > Pt informed P-Basic Metabolic Panel (BMP ) 07/28/2024 00:00: 00:00:00P-Basic Metabolic Panel (BMP)Sodium 4864-60-93S26:00:18244lkii/P347-812 - mmol/LReviewedKYen moise 07/29/2024 9:27:25 AM > Pt informed Coding P-Basic Metabolic Panel (BMP ) 07/28/2024 00:00: 00:00:00P-Basic Metabolic Panel (BMP)Potassium 4696-64-45N46:00:004.0mmol/L3.5-5.3 - mmol/LRevieweYen Smith 07/29/2024 9:27:25 AM > Pt informed Coding P-Basic Metabolic Panel (BMP ) 07/28/2024 00:00: 00:00:00P-Basic Metabolic Panel (BMP)Glucose 9832-93-76J00:00:01709ry/dL65-99 - mg/dLHRYen Temple 07/29/2024 9:27:25 AM > Pt informed Coding P-Basic Metabolic Panel (BMP ) 07/28/2024 00:00: 00:00:00P-Basic Metabolic Panel (BMP)Creatinine 5503-50-82C41:00:000.65mg/dL0.50-1.00 - mg/dLReviewedKing,Yen 07/29/2024 9:27:25 AM > Pt informed Coding P-Basic Metabolic Panel (BMP ) 07/28/2024 00:00: 00:00:00P-Basic Metabolic Panel (BMP)CO2 0991-34-96D42:00:0028mmol/L22-32 - mmol/LReviewedKing,Yen 07/29/2024 9:27:25 AM > Pt informed Coding P-Basic Metabolic Panel (BMP ) 07/28/2024 00:00: 00:00:00P-Basic Metabolic Panel (BMP)Chloride 9533-21-01Y09:00:89715tvdj/L97-108 - mmol/LReviewedKing,Yen 07/29/2024 9:27:25 AM > Pt informed Coding P-Basic Metabolic Panel (BMP ) 07/28/2024 00:00: 00:00:00P-Basic Metabolic Panel (BMP)Calcium 9850-12-80N80:00:009.2mg/dL8.6-10.4 - mg/dLReviewedKing,Yen 07/29/2024 9:27:25 AM > Pt informed Coding P-Basic Metabolic Panel (BMP ) 07/28/2024 00:00: 00:00:00P-Basic Metabolic Panel (BMP)BUN 6345-00-43V69:00:006mg/dL8-23 - mg/dLLReviewedKing,Yen 07/29/2024 9:27:25 AM > Pt informed Coding P-Basic Metabolic Panel (BMP ) 07/28/2024 00:00:00001/03/2024 00:00:22B-RowySY4955-72NorgFS9125-57-90X34:00:0093ug/dQ19-543 - ug/dLReAlida Draper 01/08/2024 9:05:14 AM > see TE Coding H-Iron 01/03/2024 00:00:00001/03/2024 00:00:74J-CcrltkygDQJ0481-19EomujulaQGD6816-53-91M15:00:0088.4ng/ml 11.1-264 - ng/mlRGilbertAlida Joaquin 01/08/2024 9:05:14 AM > see TE Coding H-Ferritin 01/03/2024 00:00: 00:00:00H-VITAMIN G32HUQB075270-60-55B94:00:88268 pg/yK669-286 - pg/mLRGilbertAlida S 01/08/2024 9:05:14 AM > see TE Coding H-VITAMIN B12 01/03/2024 00:00: 00:00:00H-Glycohemoglobin W2JQKWO0V 1612-81-04M02:00:005.64.0-6.0 - %NanciAlida S 01/08/2024 9:05:14 AM > see TE Coding H-Glycohemoglobin A1C 01/03/2024 00:00: 00:00:00D-AINZEK9123-55CAWNBN9922-10-62V25:00:0079U/L38-126 - U/LRGilbertAlida S 01/08/2024 9:05:14 AM > see TE Coding H-CMP 01/03/2024 00:00: 00:00:48D-HAVAWJVSPR8094-47RYXNZNSCOF3061-89-89V38:00:001.51.1-1.8 -NanciAlida S 01/08/2024 9:05:14 AM > see TE Coding H-CMP 01/03/2024 00:00: 00:00:14O-PKBWXBW8381-15QVVTIZE7903-04-84M03:00:002.5g/dL1.3-3.2 - g/dLReBaronAlida S 01/08/2024 9:05:14 AM > see TE Coding H-CMP 01/03/2024 00:00: 00:00:82J-QGBMWB6684-84EHBUBA2197-28-92O26:00:003.8g/dl3.5-5.0 - g/dlAlida Christine 01/08/2024 9:05:14 AM > see TE Coding H-CMP 01/03/2024 00:00:00001/03/2024 00:00:81J-DRETV4431-14BOMUE1852-59-35C98:00:006.3g/dl6.3-8.2 - g/dlAlida Christine 01/08/2024 9:05:14 AM > see TE Coding H-CMP 01/03/2024 00:00: 00:00:62T-CGDUWS6609-30TDDNDB0983-11-88R36:00:0033U/L12-78 - U/Alida Whitlock 01/08/2024 9:05:14 AM > see TE Coding H-CMP 01/03/2024 00:00: 00:00:78H-BXQYCC1613-04RYHSWJ8001-59-09C94:00:0031U/L14-36 - U/Alida Whitlock 01/08/2024 9:05:14 AM > see TE Coding H-CMP 01/03/2024 00:00: 00:00:39M-JWNJGEGQ0737-48MDNHNHBT1390-81-88C42:00:000.5mg/dl0.2- 1.3 - mg/dlAlida Christine 01/08/2024 9:05:14 AM > see TE Coding H-CMP 01/03/2024 00:00: 00:00:55L-LGFJN0775-70EYWQJ5023-98-89R82:00:009.2mg/dl8.4-10.2 - mg/dlAlida Christine 01/08/2024 9:05:14 AM > see TE Coding H-CMP 01/03/2024 00:00: 00:00:14C-ESOMTA2110-38BOCQIC1223-93-41P38:00:08095mk/bo73-411 - mg/dlEduardo Aguilara S 01/08/2024 9:05:14 AM > see TE Coding H-CMP 01/03/2024 00:00: 00:00:70U-KXYUGRW3348-01CHSYLQD5855-78-38B15:00:0082ml/min>60 - ml/minNanciAlida 01/08/2024 9:05:14 AM > see TE Coding H-CMP 01/03/2024 00:00: 00:00:10K-HZJIIUEB4315-25ZFUNWZJV6496-44-65D86:00:0099ML/MIN>60 - ML/MINNanciAlida 01/08/2024 9:05:14 AM > see TE Coding H-CMP 01/03/2024 00:00: 00:00:03Y-UYECLKIYE0389-77AKGPDHEWT0803-40-58E64:00:000.70mg/dl 0.52-1.04 - mg/dlNanciAlida 01/08/2024 9:05:14 AM > see TE Coding H-CMP 01/03/2024 00:00: 00:00:16G-VDBVIV7368-61MZPEWP4610-95-06T09:00:0015mg/dl7-17 - mg/dlNanciAlida 01/08/2024 9:05:14 AM > see TE Coding H-CMP 01/03/2024 00:00: 00:00:38Y-MMRGGP3609-90FYKOYZ2081-00-43L48:00:009.3mEq/L5-15 - mEq/LRGilbertAlida 01/08/2024 9:05:14 AM > see TE Coding H-CMP 01/03/2024 00:00: 00:00:84G-RBVNQ98474-26JWXPN59345-12-52N00:00:0028mmol/L22.0- 30.0 - mmol/LRGilbertAlida 01/08/2024 9:05:14 AM > see TE Coding H-CMP 01/03/2024 00:00: 00:00:70E-GDUQM3106-20HXVFX6094-72-02E05:00:32475hsow/L98-107 - mmol/Alida Whitlock 01/08/2024 9:05:14 AM > see TE Coding H-CMP 01/03/2024 00:00: 00:00:55F-FHPZ0976-44VZHH3033-06-03G91:00:004.3mmoL/L3.5-5.1 - mmoL/Alida Whitlock 01/08/2024 9:05:14 AM > see TE Coding H-CMP 01/03/2024 00:00: 00:00:51K-TOVBL1050-74PDHDX1535-16-15R31:00:79567qytk/W975-579 - mmol/Alida Whitlock 01/08/2024 9:05:14 AM > see TE Coding H-CMP 01/03/2024 00:00: 00:00:00H-VITAMIN DEEYNF3485-50-98I60:00:0046.4 ng/cA46-175 - ng/mLRAlida Hunt 01/08/2024 9:05:14 AM > see TE Coding H-VITAMIN D 01/03/2024 00:00:00
--- NOTE | 2024-10-26 13:34 | XR_ITS ---
FINAL REPORT CLINICAL HISTORY: SCREENING COMPARISON: 05/21/2022 FINDINGS: Using L1-4, the bone mineral density of the spine is 1.177 g/cm2, corresponding to T-score of 1.2. Using the left hip, the bone mineral density of the femoral neck is 0.789 g/cm2, corresponding to a T-score of -1.3. Using the right hip, the bone mineral density of the femoral neck is 0.777 g/cm2, corresponding to a T-score of -0.7. NOTE: T-score: Standard deviation compared with peak bone mass of young adult mean. *Following the recommendations of the International Society of Bone densitometry, classification of hip BMD is based on the lower of two T-scores; total hip or femoral neck. IMPRESSION: Normal bone mineral density of the right hip and lumbar spine. Diminished bone mineral density of the left femoral neck, consistent with osteopenia. Reviewed, Interpreted and Dictated by Saad Abad MD Transcribed by Nohelia Jiménez Authenticated and [facility]
--- OUTSIDE RECORDS SUMMARY | 2024-10-26 13:34 | XMS_ITS | Patient Health Record ---
Author Organization [facility] Address [address] [place] [id number] Care Team Providers [facility] Tech Name Role Phone Antony Patino Primary Care Provider Alida Rowland Unavailable [phone] Allergies No Known Allergies Results Component Value Reference Range Notes P-Basic Metabolic Panel (BMP ) Reviewed date:07/29/2024 09:28:08 AM Interpretation:satisfactory Performing Lab: Notes/Report: Test performed by [facility] [address] [place], [place] [address] [place] , [address], [place] [address] Baldo Ortega MD, [employer] CLIA: [id number] Sodium 141 135-145 mmol/L Potassium 4.0 3.5-5.3 mmol/L Chloride 100 97-108 mmol/L CO2 28 22-32 mmol/L Glucose 109 65-99 mg/dL BUN 6 8-23 mg/dL Creatinine 0.65 0.50-1.00 mg/dL Calcium 9.2 8.6-10.4 mg/dL eGFR by Creatinine 92 >59 mL/min/1.73m2 P-Partial Thromboplastin Guille e (PTT) Reviewed date:09/30/2024 01:46:16 PM Interpretation:Normal Performing Lab: Notes/Report: Test performed by [facility] [address] [place], [place] [address] , [address], [place] [address] Baldo Ortega MD, [employer] CLIA: [id number] Partial Thromboplastin Time (PTT) 27.0 23.9-33.0 sec Heparin therapeutic range has not been validated for this assay. P-Prothrombin Time (PT) Reviewed date:09/30/2024 01:46:16 PM Interpretation:Normal Performing Lab: Notes/Report: Test performed by [facility] [address] [place] [address] [place] [address] Baldo Ortega MD, [employer] CLIA: [id number] PT 10.9 9.5-12.2 sec INR 1.0 0.9-1.2 [...] Hematological Disorders. 3rd Edition. 2000. p 853. P-Lipase Reviewed date:09/30/2024 01:46:16 PM Interpretation:Normal Performing Lab: Notes/Report: Test performed by [facility] [address] [place] [address] [place] [address] Baldo Ortega MD, [employer] CLIA: [id number] Lipase 14.5 13.0-60.0 u/L P-Comprehensive Metabolic Pa jodi (CMP) Reviewed date:09/30/2024 01:46:16 PM Interpretation:Na 146, glu 137, BUN 7 Performing Lab: Notes/Report: Test performed by [facility] [address] [place] [address] [place] [address] Baldo Ortega MD, [employer] CLIA: [id number] Sodium 146 135-145 mmol/L Potassium 3.6 3.5-5.3 [...] 0.4 <0.2-1.2 mg/dL A/G Ratio 1.9 1.1-2.5 P-Amylase Reviewed date:09/30/2024 01:46:16 PM Interpretation:25 Performing Lab: Notes/Report: Test performed by [facility] [address] , [address], [place] [address] Baldo Ortega MD, [employer] CLIA: [id number] Amylase 25 28-100 U/L CBC Venipuncture (in house) Reviewed date:09/30/2024 01:46:16 [...] - 38 platlet 231 100 - 400 P-Magnesium Reviewed date:09/23/2024 03:32:45 PM Interpretation:Normal Performing Lab: Notes/Report: Test performed by [facility] [address] , [place] [address] Baldo Ortega MD, [employer] CLIA: [id number] Magnesium 1.8 1.6-2.4 mg/dL P-Comprehensive Metabolic Pa jodi (CMP) Reviewed date:09/23/2024 03:32:45 PM Interpretation:bun 7, prot 5.9 Performing Lab: Notes/Report: Test performed by [facility] [address] [place] [address] , [address], [place] [address] Baldo Ortega MD, [employer] CLIA: [id number] Sodium 142 135-145 mmol/L Potassium 3.5 3.5-5.3 [...] 0.4 <0.2-1.2 mg/dL A/G Ratio 1.8 1.1-2.5 CBC Venipuncture (in house) Reviewed date:09/23/2024 03:32:45 [...] - 38 platlet 224 100 - 400 H-Iron Reviewed date:01/08/2024 09:05:20 AM Interpretation: Performing Lab: Notes/Report: SHARE RESULTS WITH DR STEVEN MENDOZA FE 93 37-170 ug/dL H-Ferritin Reviewed date:01/08/2024 09:05:20 AM Interpretation: Performing Lab: Notes/Report: SHARE RESULTS WITH DR STEVEN MENDOZA RONALDO 88.4 11.1-264 ng/ml H-VITAMIN B12 Reviewed date:01/08/2024 09:05:20 AM Interpretation: Performing Lab: Notes/Report: SHARE RESULTS WITH DR STEVEN MENDOZA VITB12 880 239-931 pg/mL H-Glycohemoglobin A1C Reviewed date:01/08/2024 09:05:20 AM Interpretation: Performing Lab: Notes/Report: HGBA1C 5.6 4.0-6.0 % < 6% Non-Diabetic Level < 7% Controlled Diabetic Level > 8% Poorly Controlled Diabetic Level H-CMP Reviewed date:01/08/2024 09:05:20 AM Interpretation: Performing Lab: Notes/Report: SHARE RESULTS WITH DR STEVEN MENDOZA NA 137 136-145 mmol/L K 4.3 3.5-5.1 mmoL/L CL 104 98-107 mmol/L CO2 28 22.0-30.0 mmol/L GAP 9.3 5-15 mEq/L BUN 15 7-17 mg/dl CREATT 0.70 0.52-1.04 mg/dl GFRAA 99 >60 ML/MIN EGFR 82 >60 ml/min GLU 106 74-100 mg/dl CA 9.2 8.4-10.2 mg/dl BILIT 0.5 0.2-1.3 mg/dl AST 31 14-36 U/L ALT 33 12-78 U/L TP 6.3 6.3-8.2 g/dl ALB 3.8 3.5-5.0 g/dl GLOB 2.5 1.3-3.2 g/dL AGRATIO 1.5 1.1-1.8 ALP 79 38-126 U/L H-VITAMIN D Reviewed date:01/08/2024 09:05:20 AM Interpretation: Performing Lab: Notes/Report: TVITD 46.4 30-100 ng/mL Deficient <20 ng/mL Insufficient 20-30 ng/mL Sufficient 30-100 ng/mL Potential Toxicity >100 ng/mL Medications Medication SIG (Take, Route, Frequency, Duration) Notes Start Date End Date Status Multivitamin - 1 tab(s) orally once a day Active Metoprolol Succinate ER 25 MG TAKE 1 TABLET EVERY DAY; Duration: 90 Active Vitamin B-12 1000 MCG 1 tab(s) sublingua lly once a day Active Ondansetron 4 MG 1 tablet on the tong ue and allow to dissolve Orally Three times a day, prn 09/17/2024 Active PARoxetine HCl 20 MG TAKE 1 TABLET EVERY DAY; Duration: 90 Active Isosorbide Dinitrate 30 MG 1 tablet Oral ly once daily Active Lisinopril 5 MG TAKE 1 TABLET EVERY DAY; Duration: 90 Active Ondansetron 4 MG 1 tablet on the tong ue and allow to dissolve Orally Once a day Active oxyBUTYnin Chloride ER 10 mg TAKE ONE TABLET BY MOUTH ONCE A DAY; Duration: 30 Active Atorvastatin Calcium 80 MG 1 tablet Oral ly Once a day; Duration: 30 day(s) Active FeroSul 325 (65 Fe) MG TAKE 1 TABLET GENARO DAY; Duration: 90 Active Cetirizine HCl 10 MG 1 tab(s) orally onc e a day; Duration: 90 days Active Promethazine HCl 12.5 MG 1 tablet as nee ded Orally every 6 hrs 09/29/2024 Active Omeprazole 40 MG TAKE 1 CAPSULE ONE T YVON DAILY; Duration: 90 Active Fluticasone Propionate 50 MCG/ACT 1 spray in each nostril in each nostril once a day 03/15/2021 Active Aspirin 81 81 MG 1 tablet Orally Once a day; Duration: 30 day(s) 10/05/2024 Active Famotidine 20 MG 1 tab(s) orally as needed Active Triamcinolone Acetonide 0.1 % APPLY TOPICALLY THREE TIMES DAILY; Duration: 60 Active Immunizations Vaccine Route Administration Date Status Comme nts Prevnar (PCV20) IM Intramuscular 07/05/2023 Administered Prevnar (PCV13) IM Intramuscular 05/11/2015 Administered PNEUMOVAX 23 VACCINE IM Intramuscular 02/18/2017 Administe red Fluzone Quad-Medicare (6months&older) IM Intramuscular 05/31/2016 Administered Fluzone Quad (6months&older) Unknown 02/21/2023 Administered Fluzone High Dose (65yr and older) IM Intramuscular 05/11/2015 Administered Fluzone High Dose (65yr and older) IM Intramuscular 02/18/2017 Administered Fluzone High Dose (65yr and older) IM Intramuscular 03/03/2018 Administered Fluzone High Dose (65yr and older) IM Intramuscular 03/12/2019 Administered Fluzone High Dose (65yr and older) IM Intramuscular 12/30/2019 Administered Fluzone High Dose (65yr and older) Unknown 04/18/2022 Administered COVID 19 Moderna Unknown 07/06/2020 Administered COVID 19 Moderna Unknown 03/16/2021 Administered Problems Problem Type SNOMED Code ICD Code Onset Dates Problem Status W/U Status Risk Notes Problem Overactive bladder (119403287) Overactive bladder (N32.81) Active confirmed Problem Vitamin D deficiency (15686154) Vitamin D deficiency (E55.9) Active confirmed Problem Essential hypertension (52817907) Essential hypertension (I10) Active confirmed Problem Anxiety (20514639) Anxiety (F41.9) Active confi rmed Problem BMI 30+ - obesity (165279706) BMI 32.0-32.9,adult (Z68.32) Active confirmed Problem Thyroid nodule (313493186) Thyroid nodule (E04.1) Active confirmed Problem Gastroesophageal reflux disease without esophagitis (206004740) Gastroesophageal reflux disease without esophagitis (K21.9) Active confirmed Problem Atherosclerotic heart disease of [place] coronary artery without angina pectoris (356354289360572) Coronary artery disease 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 artery of [place] heart without angina pectoris (I25.10) Active confirmed Problem Iron deficiency anemia (76825490) Iron deficiency anemia, unspecified iron deficiency anemia type (D50.9) Active confirmed Problem Hyperlipidaemia (74330874) Hyperlipidemia, unspecified hyperlipidemia type (E78.5) Active confirmed Problem Atopic dermatitis (36281161) Atopic dermatitis, unspecified type (L20.9) Active confirmed Problem Body mass index 30.00 to 34.99 (279514314136867) BMI 34.0-34.9,adult (Z68.34) Active confirmed Problem Seasonal allergic rhinitis (027519139) Seasonal allergic rhinitis, unspecified trigger (J30.2) Active confirmed Problem Allergic rhinitis (32886527) Allergic rhinitis, unspecified seasonality, unspecified trigger (J30.9) Active confirmed Problem Morbid obesity (319536107) Morbidly obese (E66.01) Active confirmed Vital Signs Heart Rate 95 /min 09/29/2024 Blood pressure diastolic 64 mm Hg 09/29/2024 Height 64.50 in 09/29/2024 Blood pressure systolic 106 mm Hg 09/29/2024 Weight 167 lbs 09/29/2024 BMI 28.22 kg/m2 09/29/2024 Encounters Encounter Location Date Provider Diagnosis [facility] [address] [facility] [address] [place], [place] [id number] 01/03/2024 Alida Rowland Overactive bladder N 32.81 ; Allergic rhinitis, unspecified seasonality, unspecified trigger J30.9 ; Anxiety F41.9 ; Impaired fasting glucose R73.01 ; Gastroesophageal reflux disease without esophagitis K21.9 ; Essential hypertension I10 ; Iron deficiency anemia, unspecified iron deficiency anemia type D50.9 ; Hyperlipidemia, unspecified hyperlipidemia type E78.5 ; Coronary artery disease 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 artery of [place] heart without angina pectoris I25.10 ; Vitamin B 12 deficiency E53.8 ; Vitamin D deficiency E55.9 and Low TSH level R94.6 [facility] [address] [place], [place] [id number] 07/28/2024 Antony Concord Encounter for postoperative wound check Z48.89 and Dark urine R82.998 [facility] [address] [place], [place] [id number] 09/17/2024 Alida Crowdy Nausea with vomiting , unspecified R11.2 ; Diarrhea, unspecified R19.7 ; Other constipation K59.09 ; BMI 29.0-29.9,adult Z68.29 ; Anxiety F41.9 ; Hyperlipidemia, unspecified hyperlipidemia type E78.5 and Essential hypertension I10 [facility] [address] [place], [place] [id number] 09/29/2024 Antony [place] Easy bruising R23.3 ; Nausea and vomiting, unspecified vomiting type R11.2 and BMI 28.0-28.9,adult Z68.28 [facility] [address] [facility] [address] [place], [place] [id number] 12/13/2023 Alida Crowdy [facility] [address] [facility] [address] [place], [place] [id number] 01/08/2024 Alida Crowdy [facility] [address] [place], [place] [id number] 05/29/2024 Antony [place] Iron deficiency anem ia, unspecified iron deficiency anemia type D50.9 [facility] [address] [facility] [address] [place], [place] [id number] 09/23/2024 Alida Crowdy [facility] [address] [facility] [address] [place], [place] [id number] 09/30/2024 Antony Concord [facility] [address] [facility] [address] [place], [place] [id number] 10/12/2024 Antony [place] Screening for osteop orosis Z13.820 and Screening for breast cancer Z12.39 Assessments Encounter Date Diagnosis (ICD Code) Assessment Notes Treatment Notes Treatment Clinical Notes Section Notes 01/03/2024 Overactive bladder (ICD-10 - N32.81) 01/03/2024 Allergic rhinitis, unspecified seasonality, unspecified trigger (ICD-10 - J30.9) 07/28/2024 Encounter for postoperative wound check (ICD-10 - Z48.89) Continue routine post op care 07/28/2024 Dark urine (ICD-10 - R82.998) 09/17/2024 Nausea with vomiting, unspecified (ICD-10 - R11.2) Will need an appt with GI. 09/17/2024 Diarrhea, unspecified (ICD-10 - R19.7) 09/29/2024 Nausea and vomiting, unspecified vomiting type (ICD-10 - R11.2) 09/29/2024 Easy bruising (ICD-10 - R23.3) 10/12/2024 Screening for breast cancer (ICD-10 - Z12.39) 10/12/2024 Screening for osteoporosis (ICD-10 - Z13.820) 05/29/2024 Iron deficiency anemia, unspecified iron deficiency anemia type (ICD-10 - D50.9) 09/29/2024 BMI 28.0-28.9,adult (ICD-10 - Z68.28) 09/17/2024 Other constipation (ICD-10 - K59.09) 01/03/2024 Anxiety (ICD-10 - F41.9) 01/03/2024 Impaired fasting glucose (ICD-10 - R73.01) 09/17/2024 BMI 29.0-29.9,adult (ICD-10 - Z68.29) 09/17/2024 Anxiety (ICD-10 - F41.9) 01/03/2024 Gastroesophageal reflux disease without esophagitis (ICD-10 - K21.9) 01/03/2024 Essential hypertension (ICD-10 - I10) 09/17/2024 Hyperlipidemia, unspecified hyperlipidemia type (ICD-10 - E78.5) 01/03/2024 Iron deficiency anemia, unspecified iron deficiency anemia type (ICD-10 - D50.9) 09/17/2024 Essential hypertension (ICD-10 - I10) 01/03/2024 Hyperlipidemia, unspecified hyperlipidemia type (ICD-10 - E78.5) 01/03/2024 Coronary artery disease 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 artery of [place] heart without angina pectoris (ICD-10 - I25.10) 01/03/2024 Vitamin B 12 deficiency (ICD-10 - E53.8) 01/03/2024 Vitamin D deficiency (ICD-10 - E55.9) 01/03/2024 Low TSH level (ICD-10 - R94.6) Plan Of Treatment Pending Test Test Name Order Date Bone density 10/12/2024 Mammogram 10/12/2024 H-TSH 01/03/2024 H-CBC 01/03/2024 H-Lipid Panel 01/03/2024 H-T4 free 01/03/2024 Next Appt Details Provider Name:Antony cullen, 11/02/2024 10:15:00 AM, [address] [facility], [address], [place], [place], [id number], Insurance Providers Payer Name Payer Address Payer Phone Subscriber Number Group Number Insured Name Patient Relationship to Insured Coverage Start Date Coverage End Date [employer] (MEDICARE) [address] [address] [place] [phone] [id number] Neha Middleton Self - patient is the insured [employer] [address] [place] [address] [id number] Neha Middleton Self - patient is the insured Medications Administered Medication Instructions Date of Administration Dosage Notes Dexamethasone 11/17/2007 4 mg Medical (General) History Medical History History ICD Code Coronary Artery [...] Neck Surgery x 2 T& A removed 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
--- NOTE | 2024-10-26 13:35 | MM_ITS ---
PROCEDURE INFORMATION: Exam: MG Bilateral Screening 3D Mammography Exam date and time: 10/26/2024 1:58 PM Age: 74 years old Clinical indication: Screening examination TECHNIQUE: Imaging protocol: Bilateral Screening tomosynthesis and 2D mammography including computer-aided detection (CAD) when performed. COMPARISON: 1. MG MM DIG SCREENING MAMM BI W/CAD 07/24/2023 1:16 PM 2. MG MM DIG SCREENING MAMM BI W/CAD 05/18/2022 8:24 AM FINDINGS: MAMMOGRAPHY: Breast composition: There are scattered areas of fibroglandular density. Mass: None. Architectural distortion: None. Calcifications: No suspicious calcifications. Asymmetric density: None. Skin thickening: None. Axillary adenopathy: None. IMPRESSION: No mammographic evidence of malignancy. Annual screening is recommended unless otherwise clinically indicated. ASSESSMENT: BI-RADS Category 1: Negative.
== END 2024-10-26 23:59 | disposition home or self-care (01) ==
LOC: RAD 13:29
PROVIDERS: PCP Family Medicine; Visit Provider Family Medicine
DX: Z12.31 Encounter for screening mammogram for malignant neoplasm of breast (principal); M85.852 Other specified disorders of bone density and structure, left thigh; R92.323 Mammographic fibroglandular density, bilateral breasts; Z13.820 Encounter for screening for osteoporosis
CPT/HCPCS: 77063; 77067; 77080

== ENCOUNTER 2024-11-02 11:15 | Outpatient (CLI) | payer MEDICARE, MEDICAID, SELFPAY ==
--- OUTSIDE RECORDS SUMMARY | 2024-09-29 07:30 | XMS_ITS ---
Author Organization [facility] Address [address] [place] [id number] Care Team Providers Care Platinumsmith Name Role Phone Antony Patino Primary Care Provider [phone] Allergies No Known Allergies Results Component Value [...] Interpretation:25 Performing Lab: Notes/Report: Test performed by [facility] [address] [place], [place] [address] [place] , [address], [place] [address] Baldo Ortega MD, Intermission Coordinator CLIA: [id number] Amylase 25 28-100 U/L P-Comprehensive Metabolic Pa jodi (CMP) Reviewed date:09/30/2024 01:46:16 PM Interpretation:Na 146, glu 137, BUN 7 Performing Lab: Notes/Report: Test performed by [facility] [address] [place], [place] [address] [place] , [address], [place] [address] Baldo Ortega MD, Intermission Coordinator CLIA: [id number] Sodium 146 135-145 mmol/L Potassium 3.6 3.5-5.3 [...] Interpretation:Normal Performing Lab: Notes/Report: Test performed by [facility] [address] [place] [address] , [address] [place] [id number] Baldo Ortega MD, Intermission Coordinator CLIA: [id number] Lipase 14.5 13.0-60.0 u/L P-Prothrombin Time (PT) Reviewed date:09/30/2024 01:46:16 PM Interpretation:Normal Performing Lab: Notes/Report: Test performed by [facility] [address] [place] [address] , [place] [address] Baldo Ortega MD, Intermission Coordinator CLIA: [id number] PT 10.9 9.5-12.2 sec INR 1.0 0.9-1.2 [...] Interpretation:Normal Performing Lab: Notes/Report: Test performed by [facility], [address] , [address], [place] [address] Baldo Otrega MD, Intermission Coordinator CLIA: [id number] Partial Thromboplastin Time (PTT) 27.0 23.9-33.0 sec [...] RY DAY; Duration: 90 Active Vital Signs Weight 167 lbs 09/29/2024 Blood pressure systolic 106 mm Hg 09/30/19 25 Blood pressure diastolic 64 mm Hg 025 Heart Rate 95 /min 09/29/2024 Height 64.50 in 09/29/2024 BMI 28.22 kg/m2 09/29/2024 Encounters Encounter Location Date Provider Diagnosis [facility] [address] [place] [id number] 09/29/2024 Antony Patino Easy bruising R23.3 ; [...] * Neha SANCHEZJASONOB:0 1950 (74 yo F)Acc No.[id number]:09/29/2024 Progress Notes Patient: Neha TENORIO Provider: Babatunde Patino M.D. :1950 A ge:74 Y S ex:Female Date:09/29/2024 Address:[address] [place] [address] , [address], [place] Subjective: * Chief Complaints: * 1 . [...] vomiting type - R11.2 3 . B ND 28.0-28.9,adult - Z68.28 Plan: * Treatment: Value [...] G 2211 Complex e/[place], [address] CBC WITH AUTO DIFF, 1036F TOBACCO NON-USER, G8420 BMI<30 AND >=22 CALC & DOCU, G8783 BP SCR PRFRM RCMDD DEFIND SCR INTVL, G8752 MOST RECENT SYSTOLIC BP < 140MM HG, G8754 MOST RECENT DIASTOLIC BP < 90MM HG * Follow Up: v ia phone to report progress * Images: Billing Information: * Visit Code: 05236 Office Visit, Est Pt., Level 4. * Procedure Codes: G2211 Complex e/[place]. [address] CBC WITH AUTO DIFF. 1036F TOBACCO NON-USER. G8420 BMI<30 AND >=22 CALC & DOCU. G8783 BP SCR PRFRM RCMDD DEFIND SCR INTVL. G8752 MOST RECENT SYSTOLIC BP < 140MM HG. G8754 MOST RECENT DIASTOLIC BP < 90MM HG. * Electronic signature of Karen Patino MD on 11/02/2024 at 11:34 AM EDT Sign off status: Pending * Provider: Babatunde Patino M.D. Date: 0 09/29/2024 Generated for Brandon hernandez/Raina/eTransmitting on: 0 11/02/2024 11:34 AM EDT History and Physical Notes * [...]
--- OUTSIDE RECORDS SUMMARY | 2024-10-12 08:04 | XMS_ITS ---
Author Organization [facility] Address [address] [facility] [address] [place] [id number] Care Team Providers Care Sql Report Developer Name Role Phone Antony Patino Primary Care Provider Results Component Value Reference Range Notes Bone density (Not yet review ed by provider) Interpretation:osteopenia left hip, new diagnosis Performing Lab: Notes/Report: osteopenia left hip, new diagnosis Bone density osteopenia left hip Mammogram (Not yet reviewed by provider) Interpretation:Negative Performing Lab: Notes/Report: Negative result negative REASON FOR VISIT due bone density & colonoscopy Problems Problem Type SNOMED Code ICD Code Onset Dates Problem Status W/U Status Risk Notes Problem Osteopenia of left hip (M85.852) Active confirmed Encounters Encounter Location Date Provider Diagnosis [place] [address] [facility] [address] [place] [id number] 10/12/2024 Antony Patino Screening for osteoporosis Z13.820 and Screening for breast cancer Z12.39 Assessments Encounter Date Diagnosis (ICD Code) Assessment Notes Treatment Notes Treatment Clinical Notes Section Notes 10/12/2024 Screening for osteoporosis (ICD-10 - Z13.820) 10/12/2024 Screening for breast cancer (ICD-10 - Z12.39) Plan Of Treatment Pending Test Test Name Order Date Bone density 10/12/2024 Mammogram 10/12/2024 Progress Notes * Neha SANCHEZEDOB:0 1950 (74 yo F)Acc No.[id number]:10/12/2024 Patient: Yusuf Neha LUCIA :1950 A ge:74 Y S ex:Female Address:[address] [place] [address] , [address] [address] Subjective: * Chief Complaints: * D ue bone density & colonoscopy * Medical History: * Surgical History: * Hospitalization/Major Diagno stic Procedure: * Medications: Objective: * Vitals: * Physical Examination: Assessment: * Assessment: 1. S creening for osteoporosis - Z13.820 (Primary) 2 . S creening for breast cancer - Z12.39 Plan: * Treatment: 2.?Screening for breast cancer?Imaging: Mammogram* [facility] * Procedure Codes: * true * Date: Generated for Brandon hernandez/Raina/Kenyetta on: 0 11/02/2024 11:35 AM EDT
--- NOTE | 2024-11-02 11:24 | ECG_ITS ---
APPROVED REPORT Exam: Resting ECG HR:69 bpm ECG Measurements Heart Rate 69 AXES UT 147 P 63 QRSd 89 QRS 68 QT 395 T 50 QTc 414 Conclusion SINUS RHYTHM LOW QRS VOLTAGE IN PRECORDIAL LEADS [QRS DEFLECTION < 1.0 mV IN CHEST LEADS] BORDERLINE ECG UNCONFIRMED REPORT Electronically signed by : Jann Cuenca MD 11/02/2024 16:49:20
--- OUTSIDE RECORDS SUMMARY | 2024-11-02 11:35 | XMS_ITS | Clinical Summary ---
Author Organization [facility] Address [address] [place] [address] Care Team Providers Care Editorial Cartoonist Name Role Phone Antony Patino MD Primary Care Provider + [phone] Family History Medical History Relation Name Comments [...] of Treatment Not on file Care Teams Editorial Cartoonist Relationship Specialty Start Date End Date Antony Patino MD [address] [place] [address] PCP - General 09/09/20
--- OUTSIDE RECORDS SUMMARY | 2024-11-02 11:35 | XMS_ITS | Clinical Summary ---
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 (SNOMED CT) 06/16 Active 06/16 Amador Clark MD Chorioretinitis Constipation 76980471 (SNOMED CT) 05/18 Active 05/24 Amador Clark MD Constipation Loss of vision 333614434 (SNOMED CT) 05/04 Active 05/05 Amador Clark MD 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 PYRIDOXINE HCL 65078103866 Amador Clark MD ISONIAZID 300 MG TABS Take one by mouth daily. ISONIAZID 39172090380 Amador Clark MD RIFAMPIN 300 MG CAPS Take two capsules (600mg) po daily. RIFAMPIN 52409813163 Amador Clark MD OMEPRAZOLE 40 MG CPDR Take 1 tablet by mouth daily OMEPRAZOLE 07796197182 Barb Petitey MYRBETRIQ 50 MG [id number] Take 1 tablet by mouth daily MIRABEGRON 27072871555 Barb Petitey METOPROLOL SUCCINATE ER 25 MG [id number] Take 1 tablet by mouth daily METOPROLOL SUCCINATE 58131243515 Barb Petitey LISINOPRIL 5 MG TABS Take 1 tablet by mouth daily LISINOPRIL 14925910686 Barb Petitey FUROSEMIDE 20 MG TABS Take 1 tablet by mouth daily FUROSEMIDE 36168755964 Barb Petitey CITALOPRAM HYDROBROMIDE 20 MG TABS Take 1 tablet by mouth daily CITALOPRAM HYDROBROMIDE 82891858375 Barb Petitey ATORVASTATIN CALCIUM 40 MG TABS Take 1 tablet by mouth daily ATORVASTATIN CALCIUM 37676894875 Barb Petitey Medications Administered No information available. [...] Entry Date CPT-[facility] Continue oral antibiotics 16/04/18 [id number] CBC with Differential 2018 CPT-57634 CMP CPT-[facility] Continue oral antibiotics 17/03/20 CPT-sl STAT Labs CPT-arturo New Oral Antibiotic CPT-sl STAT Labs [id number] CBC with Differential 2018 CPT-16148 CMP Vital Signs Date Name Value Unit [...]
--- OUTSIDE RECORDS SUMMARY | 2024-11-02 11:35 | XMS_ITS | Patient Health Record ---
Author Organization [facility] Address [address] [place] [id number] Care Team Providers Care Servomechanism Assembler Name Role Phone Antony Patino Primary Care Provider [phone] Alida Rowland Unavailable [phone] Allergies No Known Allergies Results Component Value Reference Range Notes H-Iron Reviewed date:01/08/2024 09:05:20 AM Interpretation: Performing [...] Sufficient 30-100 ng/mL Potential Toxicity >100 ng/mL P-Magnesium Reviewed date:09/23/2024 03:32:45 PM Interpretation:Normal Performing Lab: Notes/Report: Test performed by [facility] [address] [place] [address] , [address], [place] [id number] Baldo Ortega MD, Railroad Car Cleaner CLIA: [id number] Magnesium 1.8 1.6-2.4 mg/dL P-Comprehensive Metabolic Pa jodi (CMP) Reviewed date:09/23/2024 03:32:45 PM Interpretation:bun 7, prot 5.9 Performing Lab: Notes/Report: Test performed by [facility] [address] [place] [address] , [address], [place] [address] Baldo Ortega MD, Railroad Car Cleaner CLIA: [id number] Sodium 142 135-145 mmol/L Potassium 3.5 3.5-5.3 [...] - 38 platlet 224 100 - 400 P-Basic Metabolic Panel (BMP ) Reviewed date:07/29/2024 09:28:08 AM Interpretation:satisfactory Performing Lab: Notes/Report: Test performed by [facility] [address] [place] [address] , [address], [place] [address] Baldo Ortega MD, Railroad Car Cleaner CLIA: [id number] Sodium 141 135-145 mmol/L Potassium 4.0 3.5-5.3 mmol/L Chloride 100 97-108 mmol/L CO2 28 22-32 mmol/L Glucose 109 65-99 mg/dL BUN 6 8-23 mg/dL Creatinine 0.65 0.50-1.00 mg/dL Calcium 9.2 8.6-10.4 mg/dL eGFR by Creatinine 92 >59 mL/min/1.73m2 Bone density (Not yet review ed by provider) Interpretation:osteopenia left hip, new diagnosis Performing Lab: Notes/Report: osteopenia left hip, new diagnosis Bone density osteopenia left hip Mammogram (Not yet reviewed by provider) Interpretation:Negative Performing Lab: Notes/Report: Negative result negative P-Partial Thromboplastin Guille e (PTT) Reviewed date:09/30/2024 01:46:16 PM Interpretation:Normal Performing Lab: Notes/Report: Test performed by [facility], [address] , [place] [address] Baldo Ortega MD, Railroad Car Cleaner CLIA: [id number] Partial Thromboplastin Time (PTT) 27.0 23.9-33.0 sec Heparin therapeutic range has not been validated for this assay. P-Prothrombin Time (PT) Reviewed date:09/30/2024 01:46:16 PM Interpretation:Normal Performing Lab: Notes/Report: Test performed by [facility] [address] , [place] [address] Baldo Ortega MD, Railroad Car Cleaner CLIA: [id number] PT 10.9 9.5-12.2 sec INR 1.0 0.9-1.2 [...] Interpretation:Normal Performing Lab: Notes/Report: Test performed by [facility] [address] , [place] [address] Baldo Ortega MD, Railroad Car Cleaner CLIA: [id number] Lipase 14.5 13.0-60.0 u/L P-Comprehensive Metabolic Pa jodi (CMP) Reviewed date:09/30/2024 01:46:16 PM Interpretation:Na 146, glu 137, BUN 7 Performing Lab: Notes/Report: Test performed by [facility] [address] [place] [address] , [place] [address] Baldo Ortega MD, Railroad Car Cleaner CLIA: [id number] Sodium 146 135-145 mmol/L Potassium 3.6 3.5-5.3 [...] Interpretation:25 Performing Lab: Notes/Report: Test performed by [facility] [address] , [address] , [place] [address] Baldo Ortega MD, Railroad Car Cleaner CLIA: [id number] Amylase 25 28-100 U/L CBC Venipuncture (in [...] - 38 platlet 231 100 - 400 Medications Medication SIG (Take, Route, Frequency, Duration) Notes Start Date End Date Status Fluticasone Propionate 50 MCG/ACT 1 spray in each nostril in each nostril once a day 03/15/2021 Active Triamcinolone Acetonide 0.1 % APPLY TOPICALLY THREE TIMES DAILY; Duration: 60 Active Aspirin 81 81 MG 1 tablet Orally Once a day; Duration: 30 day(s) 10/05/2024 Active Vitamin B-12 1000 MCG 1 tab(s) sublingua lly once a day Active oxyBUTYnin Chloride ER 10 mg TAKE ONE TABLET BY MOUTH ONCE A DAY; Duration: 30 Active Cetirizine HCl 10 MG 1 tab(s) orally onc e a day; Duration: 90 days Active Multivitamin - 1 tab(s) orally once a day Active Metoprolol Succinate ER 25 MG TAKE 1 TABLET EVERY DAY; Duration: 90 Active Isosorbide Dinitrate 30 MG 1 tablet Oral ly once daily Active Lisinopril 5 MG TAKE 1 TABLET EVERY DAY; Duration: 90 Active Atorvastatin Calcium 80 MG 1 tablet Oral ly Once a day; Duration: 30 day(s) Active PARoxetine HCl 20 MG TAKE 1 TABLET EVERY DAY; Duration: 90 Active Ondansetron 4 MG 1 tablet on the tong ue and allow to dissolve Orally Once a day Active Immunizations Vaccine Route Administration Date Status [...] Administered Prevnar (PCV20) IM Intramuscular 07/05/2023 Administered Problems Problem Type SNOMED Code ICD Code Onset Dates Problem Status W/U Status Risk Notes Problem Overactive bladder (506977581) Overactive bladder (N32.81) Active confirmed Problem Vitamin D deficiency (02070359) Vitamin D deficiency (E55.9) Active confirmed Problem Essential hypertension (58655048) Essential hypertension (I10) Active confirmed Problem Anxiety (19977159) Anxiety (F41.9) Active confi rmed Problem BMI 30+ - obesity (144918285) BMI 32.0-32.9,adult (Z68.32) Active confirmed Problem Thyroid nodule (909599808) Thyroid nodule (E04.1) Active confirmed Problem Gastroesophageal reflux disease without esophagitis (988145604) Gastroesophageal reflux disease without esophagitis (K21.9) Active confirmed Problem Atherosclerotic heart disease of [place] coronary artery without angina pectoris (964065545821931) Coronary artery disease involving [place] coronary artery of [place] heart without angina pectoris (I25.10) Active confirmed Problem Iron deficiency anemia (47672933) Iron deficiency anemia, unspecified iron deficiency anemia type (D50.9) Active confirmed Problem Hyperlipidaemia (41209154) Hyperlipidemia, unspecified hyperlipidemia type (E78.5) Active confirmed Problem Atopic dermatitis (70083960) Atopic dermatitis, unspecified type (L20.9) Active confirmed Problem Body mass index 30.00 to 34.99 (079556642108776) BMI 34.0-34.9,adult (Z68.34) Active confirmed Problem Seasonal allergic rhinitis (179127267) Seasonal allergic rhinitis, unspecified trigger (J30.2) Active confirmed Problem Allergic rhinitis (62238984) Allergic rhinitis, unspecified seasonality, unspecified trigger (J30.9) Active confirmed Problem Morbid obesity (830834955) Morbidly obese (E66.01) Active confirmed Problem Osteopenia of le ft hip (M85.852) Active confirmed Vital Signs Heart Rate 67 /min 11/02/2024 Blood pressure diastolic 70 mm Hg 11/02/2024 Height 64.50 in 11/02/2024 Blood pressure systolic 112 mm Hg 11/02/2024 Weight 170.4 lbs 11/02/2024 BMI 28.79 kg/m2 11/02/2024 Encounters Encounter Location Date Provider Diagnosis [facility] [address] [place], [place] [id number] 01/03/2024 Alida Rowland Overactive bladder N 32.81 ; Allergic rhinitis, unspecified seasonality, unspecified trigger J30.9 ; Anxiety F41.9 ; Impaired fasting glucose R73.01 ; Gastroesophageal reflux disease without esophagitis K21.9 ; Essential hypertension I10 ; Iron deficiency anemia, unspecified iron deficiency anemia type D50.9 ; Hyperlipidemia, unspecified hyperlipidemia type E78.5 ; Coronary artery disease involving [place] coronary artery of [place] heart without angina pectoris I25.10 ; Vitamin B 12 deficiency E53.8 ; Vitamin D deficiency E55.9 and Low TSH level R94.6 [facility] [address] [facility] [address] [place], [place] [id number] 07/28/2024 [place]y [place] Encounter for postoperative wound check Z48.89 and Dark urine R82.998 [facility] [address] [facility] [address] [place], [place] [id number] 09/17/2024 Alida Crowdy Nausea with vomiting , unspecified R11.2 ; Diarrhea, unspecified R19.7 ; Other constipation K59.09 ; BMI 29.0-29.9,adult Z68.29 ; Anxiety F41.9 ; Hyperlipidemia, unspecified hyperlipidemia type E78.5 and Essential hypertension I10 [facility] [address] [facility] [address] [place], [place] [id number] 09/29/2024 Antony [place] Easy bruising R23.3 ; Nausea and vomiting, unspecified vomiting type R11.2 and BMI 28.0-28.9,adult Z68.28 [facility] [address] [place], [place] [id number] 11/02/2024 Antony [place] Age-related cataract , unspecified age-related cataract type, unspecified laterality H25.9 ; Pre-op exam Z01.818 ; Essential hypertension I10 ; Coronary artery disease involving [place] coronary artery of [place] heart without angina pectoris I25.10 ; Hyperlipidemia, unspecified hyperlipidemia type E78.5 ; Overactive bladder N32.81 ; Allergic rhinitis, unspecified seasonality, unspecified trigger J30.9 ; Personal history of nicotine dependence Z87.891 and Screening for lung cancer Z12.2 [facility] [address] [facility] [address] [place], [place] [id number] 12/13/2023 Alida Ervindy Fletcher [address] [facility] [address] [place], [place] [id number] 01/08/2024 Alida Ervindy [facility] [address] [facility] [address] [place], [place] [id number] 05/29/2024 Antony [place] Iron deficiency anem ia, unspecified iron deficiency anemia type D50.9 [facility] [address] [facility] [address] [place], [place] [id number] 09/23/2024 Alida Rowland [facility] [address] [place], [place] [id number] 09/30/2024 [place] [facility] [address] [place], [place] [id number] 10/12/2024 Antony [place] Screening for osteop orosis Z13.820 and Screening for breast cancer Z12.39 Assessments Encounter Date Diagnosis (ICD Code) Assessment Notes Treatment Notes Treatment Clinical Notes Section Notes 01/03/2024 Overactive bladder (ICD-10 - N32.81) 01/03/2024 Allergic rhinitis, unspecified seasonality, unspecified trigger (ICD-10 - J30.9) 05/29/2024 Iron deficiency anemia, unspecified iron deficiency anemia type (ICD-10 - D50.9) 07/28/2024 Encounter for postoperative wound check (ICD-10 [...] 10/12/2024 Screening for osteoporosis (ICD-10 - Z13.820) 11/02/2024 Pre-op exam (ICD-10 - Z01.818) 11/02/2024 Age-related cataract, unspecified age-related cataract type, unspecified laterality (ICD-10 - H25.9) 11/02/2024 Essential hypertension (ICD-10 - I10) 09/17/2024 Other constipation (ICD-10 - K59.09) 09/29/2024 BMI 28.0-28.9,adult (ICD-10 - Z68.28) 01/03/2024 Anxiety (ICD-10 - F41.9) 01/03/2024 Impaired fasting glucose (ICD-10 - R73.01) 11/02/2024 Coronary artery disease involving [place] coronary artery of [place] heart without angina pectoris (ICD-10 - I25.10) 09/17/2024 BMI 29.0-29.9,adult (ICD-10 - Z68.29) 11/02/2024 Hyperlipidemia, unspecified hyperlipidemia type (ICD-10 - E78.5) 01/03/2024 Gastroesophageal reflux disease without esophagitis (ICD-10 - K21.9) 09/17/2024 Anxiety (ICD-10 - F41.9) 01/03/2024 Essential hypertension (ICD-10 - I10) 09/17/2024 Hyperlipidemia, unspecified hyperlipidemia type (ICD-10 - E78.5) 11/02/2024 Overactive bladder (ICD-10 - N32.81) 11/02/2024 Allergic rhinitis, unspecified seasonality, unspecified trigger (ICD-10 - J30.9) 01/03/2024 Iron deficiency anemia, unspecified iron deficiency anemia type (ICD-10 - D50.9) 09/17/2024 Essential hypertension (ICD-10 - I10) 01/03/2024 Hyperlipidemia, unspecified hyperlipidemia type (ICD-10 - E78.5) 11/02/2024 Personal history of nicotine dependence (ICD-10 - Z87.891) 11/02/2024 Screening for lung cancer (ICD-10 - Z12.2) 01/03/2024 Coronary artery disease involving [place] coronary artery of [place] heart without angina pectoris (ICD-10 - I25.10) 01/03/2024 Vitamin B 12 deficiency (ICD-10 - E53.8) 01/03/2024 Vitamin D deficiency (ICD-10 - E55.9) 01/03/2024 Low TSH level (ICD-10 - R94.6) Plan Of Treatment Pending Test Test Name Order Date Bone density 10/12/2024 EKG 11/02/2024 Mammogram 10/12/2024 H-TSH 01/03/2024 H-CBC 01/03/2024 H-CBC 11/02/2024 H-Lipid Panel 01/03/2024 H-CMP 11/02/2024 H-T4 free 01/03/2024 Insurance Providers Payer Name Payer Address Payer Phone Subscriber Number Group Number Insured Name Patient Relationship to Insured Coverage Start Date Coverage End Date [employer] (MEDICARE) [address] [address] [place] [address] [id number] Neha Middleton Self - patient is the insured MED[employer] [address] [place] [id number] Neha Middleton Self - patient is the [...]
[2024-11-02 11:53] LABS: Hematocrit 38.1 % (37.0-47.0); Hemoglobin 12.3 g/dL (12.2-16.2); Immature Granulocytes % 0.2 %; Mean Corpuscular HGB Conc 32.3 g/dL (31.8-35.4); Mean Corpuscular Hemoglobin 29.5 pg (27.0-31.2); Mean Corpuscular Volume 91.4 fl (81-99); Nucleated Red Blood Cells % 0 %; Platelet Count 232 K/mm3 (142-424); Red Blood Count 4.17 M/mm3 (4.20-5.40); Red Cell Distribution Width-SD 46.3 fL; White Blood Count 9.3 K/mm3 (4.8-10.8)
[2024-11-02 12:16] LABS: Alanine Aminotransferase 15 U/L (12-78); Albumin Level 3.8 g/dl (3.5-5.0); Albumin/Globulin Ratio 1.7 (1.1-1.8); Alkaline Phosphatase 89 U/L (38-126); Anion Gap 13.0 mEq/L (5-15); Aspartate Amino Transferase 23 U/L (14-36); Bilirubin,Total 0.5 mg/dl (0.2-1.3); Blood Urea Nitrogen 8 mg/dl (7-17); Calcium 9.0 mg/dl (8.4-10.2); Carbon Dioxide 32 mmol/L (22.0-30.0); Chloride 98 mmol/L (98-107); Creatinine,Serum 0.60 mg/dl (0.52-1.04); Estimated Glomerular Filt Rate 97 ml/min (>60); GFR (African American) 118 ML/MIN (>60); Globulin 2.2 g/dL (1.3-3.2); Glucose 113 mg/dl (74-100); Potassium 4.0 mmoL/L (3.5-5.1); Sodium 139 mmol/L (136-145); Total Protein,Serum 6.0 g/dl (6.3-8.2)
== END 2024-11-02 23:59 | disposition home or self-care (01) ==
LOC: RT 11:16
PROVIDERS: PCP Family Medicine; Visit Provider Family Medicine
DX: Z01.810 Encounter for preprocedural cardiovascular examination (principal); Z01.812 Encounter for preprocedural laboratory examination; R94.31 Abnormal electrocardiogram [ECG] [EKG]
CPT/HCPCS: 36415; 80053; 85025; 93005

== ENCOUNTER 2025-01-14 13:38 | Outpatient (CLI) | payer MEDICARE, MEDICAID, SELFPAY ==
--- OUTSIDE RECORDS SUMMARY | 2025-01-14 13:40 | XMS_ITS | Clinical Summary ---
Author Organization [facility] Address [address] [facility] [address] [place] [address] Phone Care Team Providers Care Accounting Assistant Name Role Phone Amber ERIC, Amador Hanson [phone] Conditions or Problems Problem Name Problem Code Onset Date Status Entry Date Provider Comment Standard Description Annotate Chorioretinit is, bilateral 76492908 (SNOMED CT) 06/16 Active 06/16 Amador Clark MD Chorioretinitis Constipation 16331994 (SNOMED CT) 05/18 Active 05/24 Amador Clark MD Constipation Loss of vision 345102765 (SNOMED CT) 05/04 Active 05/05 Amador Clark MD Blindness AND/OR vision impairment level Disseminated chorioretinit is, bilateral 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 PYRIDOXINE HCL [id number] Amador Clark MD ISONIAZID 300 MG TABS Take one by mouth daily. ISONIAZID [id number] Amador Clark MD RIFAMPIN 300 MG CAPS Take two capsules (600mg) po daily. RIFAMPIN [id number] Amador Clark MD OMEPRAZOLE 40 MG CPDR Take 1 tablet by mouth daily OMEPRAZOLE [id number] Barb Petitey MYRBETRIQ 50 MG [id number] Take 1 tablet by mouth daily MIRABEGRON [id number] Barb Petitey METOPROLOL SUCCINATE ER 25 MG [id number] Take 1 tablet by mouth daily METOPROLOL SUCCINATE [id number] Barb Petitey LISINOPRIL 5 MG TABS Take 1 tablet by mouth daily LISINOPRIL [id number] Barb Petitey FUROSEMIDE 20 MG TABS Take 1 tablet by mouth daily FUROSEMIDE [id number] Barb Petitey CITALOPRAM HYDROBROMIDE 20 MG TABS Take 1 tablet by mouth daily CITALOPRAM HYDROBROMIDE [id number] Barb Petitey ATORVASTATIN CALCIUM 40 MG TABS Take 1 tablet by mouth daily ATORVASTATIN CALCIUM [id number] Barb Petitey Medications Administered No information available. [...] Entry Date [facility]PT[facility] Continue oral antibiotics 16/04/18 [id number] CBC with Differential 2018 CPT-11574 CMP CPT[facility] Continue oral antibiotics 17/03/20 [facility] CPT-arturo New Oral Antibiotic [facility] [id number] CBC with Differential 2018 CPT-72952 CMP Vital Signs Date Name Value Unit [...]
--- OUTSIDE RECORDS SUMMARY | 2025-01-14 13:40 | XMS_ITS | Clinical Summary ---
Author Organization [facility] Address [address] [place] [address] Care Team Providers Care Break Off Worker Name Role Phone Antony Patino MD Primary Care Provider [phone] Allergies No known active allergies Medications atorvastatin (LIPITOR) 40 MG tablet Take 2 tablets by mouth Daily. Active famotidine (PEPCID) 20 MG tablet Take 1 tablet by mouth As Needed. Active ferrous sulfate 325 (65 FE) MG tablet Take 1 tablet by mouth Daily With Breakfast. Active lisinopril (PRINIVIL,ZESTRIL) 5 MG tablet Take 1 tablet by mouth Daily. Active metoprolol succinate XL (TOPROL-XL) 25 MG 24 hr tablet Take 1 tablet by mouth Daily. Active multivitamin with minerals tablet tablet Take 1 tablet by mouth Daily. Active omeprazole (priLOSEC) 20 MG capsule Take 2 capsules by mouth Daily. Active OXYBUTYNIN CHLORIDE PO Take 10 mg by mouth Daily. Active PARoxetine (PAXIL) 10 MG tablet Take 2 tablets by mouth Every Morning. Active vitamin B-12 (CYANOCOBALAMIN) 1000 MCG tablet Take 0.5 tablets by mouth Daily. Active cetirizine (zyrTEC) 10 MG tablet Take 1 tablet by mouth Daily. Active isosorbide mononitrate (IMDUR) 60 MG 24 hr tablet Take 1 tablet by mouth Daily. Active clopidogrel (PLAVIX) 75 MG tablet Take 1 tablet by mouth Daily. Active docusate sodium (COLACE) 50 mg/5 mL liquid Administer 10 mL per G tube Daily. 200 mL 1 07/23/2024 10:45 AM EDT Active HYDROcodone-acetam inophen (HYCET) 7.5-325 MG/15ML solutionIndication s:Paraesophageal hernia Take 15 mL by mouth Every 4 (Four) Hours As Needed for Moderate Pain. 165 mL 07/23/2024 10:45 AM EDT Active ondansetron ODT (ZOFRAN-ODT) [address] 1 tablet on the tongue Every 6 (Six) Hours As Needed for Nausea or Vomiting. 60 tablet 1 07/23/2024 10:45 AM EDT Active simethicone (MYLICON) 80 MG chewable tablet Chew 1 tablet 4 (Four) Times a Day As Needed for Flatulence/blo ating. 60 tablet 1 07/23/2024 10:45 AM EDT Active Active Problems Problem Noted Date Diagnosed Date CAD (coronary artery disease) 07/21/2024 Paraesophageal hernia 07/21/2024 Hiatal hernia 12/23/2023 Family History Medical History Relation Name Comments Diabetes Father Hypertension Father No Known Problems Mother Relation Name Status Comments Father Mother Social History Tobacco Use Types Packs/Day Years Used Date Smoking Tobacco: Former Cigarettes Q uit: 2005 Smokeless Tobacco: Never Tobacco Cessation:Counseling Given: Not Answered Alcohol Use Standard Drinks/Week Comments Never 0 (1 standard drink = 0.6 oz pur e alcohol) AUDIT-C Answer Date Recorded Q1: How often do you have a drink containing alc ohol? Never 09/06/2020 Average Number of Drinks Not on file 021 Frequency of Binge Drinking Not on file 08/27 Hunger Vital Sign Answer Date Recorded Within the past 12 months, y ou worried that your food would run out before you got the money to buy more. Never true 07/23/19 25 Within the past 12 months, t he food you bought just didn't last and you didn't have money to get more. Never true 07/22/2024 PRAPARE - Transportation Answer Date Re corded In the past 12 months, has l ack of transportation kept you from medical appointments or from getting medications? No 06/28 In the past 12 months, has l ack of transportation kept you from meetings, work, or from getting things needed for daily living? No 07/22/2024 Abuse Screen Answer Date Recorded Feels Unsafe at Home or Work/School no 07/21/2024 Feels Threatened by Someone no 06/28 Does Anyone Try to Keep You From Having Contact with Others or Doing Things Outside Your Home? no 07/21/2024 Physical Signs of Abuse Present no 07/21/2024 Housing Stability Answer Date Recorded Current Living Arrangements home 06/28 Potentially Unsafe Housing Conditions none 07/22/2024 Family and Community Support Answer Romaine e Recorded If for any reason you need h elp with day-to-day activities such as bathing, preparing meals, shopping, managing finances, etc., do you get the help you need? I don't need any help 07/22/2024 Lonely or Isolated Not on file 07/22/2024 Disabilities Answer Date Recorded Difficulty Concentrating, Remembering or Making Decisions no 07/21/2024 Difficulty Managing Errands Independently no 07/21/2024 Education Answer Date Recorded Help with school or training? Not on file Preferred Language [place] Islander 2024 Comments No Sex and Gender Information Value Date Recorded Sex Assigned at Not on file Legal Sex Female 12:02 PM EDT Gender Identity Not on file Sexual Orientation Not on file Last Filed Vital Signs Vital Sign Reading Time Taken Comments Blood Pressure 166/78 07/23/2024 9:51 AM EDT Pulse 89 07/23/2024 4:05 AM EDT Temperature 37.3 C (99.1 F) 07/23/2024 9:51 AM EDT Respiratory Rate 18 07/23/2024 9:51 AM EDT Oxygen Saturation 98% 07/23/2024 9:51 AM EDT Inhaled Oxygen Concentration - - Weight 94.9 kg (209 lb 3.2 oz) 07/21/2024 6:30 P M EDT Height 167.6 cm (5' 5.98 ) 07/21/2024 6:30 PM ED T Body Mass Index 33.78 07/21/2024 6:30 PM EDT Plan of Treatment Health Maintenance Due Date Last Done Comments DXA SCAN 1949 TDAP/TD VACCINES (1 - Tdap) 1968 COLOGUARD 1994 COLON CANCER SCREENING 5 YEA R SIGMOIDOSCOPY 1994 CT COLONOGRAPHY 1994 FECAL OCCULT BLOOD TEST 1994 FIT Testing (1 year) 1994 ZOSTER VACCINE (1 of 2) 07/15/1999 ANNUAL WELLNESS VISIT 09/06/2020 HEPATITIS C SCREENING 09/06/2020 RSV Vaccine - Adults (1 - 1- dose 75+ series) 2024 INFLUENZA VACCINE 11/27/2024 02/21/2023, , 03/16/2021, Additional history exists COVID-19 Vaccine ( - 2024-2 6 season) 2024 02/21/2023, 04/18/2022, 03/16/2021, Additional history exists COLONOSCOPY 10/13/2033 10/14/2023 COLORECTAL CANCER SCREENING 10/13/2033 Pneumococcal Vaccine 50+ Completed 02/18/2017, 04/29 Medical Devices Implanted Type Area Salesforce Business Analyst Device Identifier Shelf Expiration Date Model / Serial / Lot Clipapplr M/ Endo Ligaclip Rot 10mm /Lg - [id number] Implanted:Qty : 1 on 07/21/2024 by Shiva Hoyos MD at [facility] Implant N/A: Abdomen [employer] DIV OF J AND J [id number] / / Mesh Keyla Phasix St Rectg 3x4in Ca/1ea - [id number] Implanted:Qty : 1 on 07/21/2024 by Shiva Hoyos MD at [facility] Implant N/A: Esophagus DAVOL (DIV OF [employer]) 01/24/2027 [id number] / / [id number] Procedures Procedure Name Priority Date/Time Associated Diagnosis Comments SCANNED - COLONOSCOPY 10/14/2023 from Last 3 Months or Most Recently Relevant to Health Maintenance Results * Colonoscopy, Scan (10/14/2023) Antony Patino MD CHART REVIEW TABS Final R esult from Last 3 Months or Most Recently Relevant to Health Maintenance Insurance [place] [employer] MEDICARE ADVANTAGE [facility] HMO Advance Directives * CPR (Attempt to Resuscitate) (Latest Code Status on File) Date Activated Date Inactivated Comments 07/21/2024 6:33 PM 07/23/2024 2:01 PM Question Answer Comments Code Status (Patient has no pulse and is not breathing): CPR (Attempt to Resuscitate) Medical Interventions (Patie nt has pulse or is breathing): Full Support Level Of Support Discussed With: Patient Care Teams Break Off Worker Relationship Specialty Start Date End Date Antony Patino MD [address] [facility] [address] [place] [id number] PCP - General Family Medicine 09/01/20
--- OUTSIDE RECORDS SUMMARY | 2025-01-14 13:40 | XMS_ITS | Clinical Summary ---
Author Organization [facility] Address [address] [place] [address] Care Team Providers Care Geophysical Party Chief Name Role Phone Antony Patino MD Primary Care Provider [phone] Family History Medical History Relation Name Comments [...] of Treatment Not on file Care Teams Geophysical Party Chief Relationship Specialty Start Date End Date Antony Patino MD [address] [place] [address] PCP - General 09/09/20
[2025-01-14 14:05] LABS: Hematocrit 38.1 % (37.0-47.0); Hemoglobin 12.2 g/dL (12.2-16.2); Immature Granulocytes % 0.2 %; Mean Corpuscular HGB Conc 32.0 g/dL (31.8-35.4); Mean Corpuscular Hemoglobin 29.8 pg (27.0-31.2); Mean Corpuscular Volume 92.9 fl (81-99); Nucleated Red Blood Cells % 0 %; Platelet Count 236 K/mm3 (142-424); Red Blood Count 4.10 M/mm3 (4.20-5.40); Red Cell Distribution Width-SD 48.1 fL; White Blood Count 5.8 K/mm3 (4.8-10.8)
[2025-01-14 14:48] LABS: Alanine Aminotransferase 17 U/L (12-78); Albumin Level 4.0 g/dl (3.5-5.0); Alkaline Phosphatase 69 U/L (38-126); Anion Gap 9.5 mEq/L (5-15); Aspartate Amino Transferase 24 U/L (14-36); Bilirubin,Direct 0.1 mg/dl (0.0-0.4); Bilirubin,Indirect 0.4 mg/dL (0.0-0.9); Bilirubin,Total 0.5 mg/dl (0.2-1.3); Bilirubin,Unconjugated 0.4 mg/dL (0.0-1.1); Blood Urea Nitrogen 8 mg/dl (7-17); Calcium 9.4 mg/dl (8.4-10.2); Carbon Dioxide 33 mmol/L (22.0-30.0); Chloride 100 mmol/L (98-107); Cholesterol 126 mg/dl (140-200); Creatinine,Serum 0.60 mg/dl (0.52-1.04); Estimated Glomerular Filt Rate 97 ml/min (>60); GFR (African American) 118 ML/MIN (>60); Glucose 92 mg/dl (74-100); HDL Cholesterol 48 mg/dl (40-60); Magnesium 1.9 mg/dl (1.6-2.3); Potassium 4.5 mmoL/L (3.5-5.1); Sodium 138 mmol/L (136-145); Total Protein,Serum 6.4 g/dl (6.3-8.2); Triglycerides 118 mg/dl (30-150)
[2025-01-14 15:05] LABS: Free T4 (Free Thyroxine) 1.03 ng/dl (0.78-2.19)
[2025-01-14 15:18] LABS: Thyroid Stimulating Hormone 0.95 uIU/mL (0.465-4.68)
== END 2025-01-14 23:59 | disposition home or self-care (01) ==
LOC: LAB 13:39
PROVIDERS: PCP Family Medicine; Visit Provider Nurse Practitioner
DX: Z01.812 Encounter for preprocedural laboratory examination (principal); I11.9 Hypertensive heart disease without heart failure; E78.5 Hyperlipidemia, unspecified; I25.10 Atherosclerotic heart disease of native coronary artery without angina pectoris
CPT/HCPCS: 36415; 80048; 80061; 80076; 83735; 84439; 84443; 85025

== ENCOUNTER 2025-01-21 07:57 | Outpatient (CLI) | payer MEDICARE, MEDICAID, SELFPAY ==
--- OUTSIDE RECORDS SUMMARY | 2024-07-28 07:15 | XMS_ITS ---
Author Organization [facility] Address [address] [place] [phone] Care Team Providers Care Calculator Operator Name Role Phone Antony Patino Primary Care Provider Allergies No Known Allergies Results Component Value Reference Range Notes P-Basic Metabolic Panel (BMP ) Reviewed date:07/29/2024 09:28:08 AM Interpretation:satisfactory Performing Lab: Notes/Report: Test performed by [facility] [address] [place] [address] , [address], [place] [address] Baldo Ortega MD, Jeweler Apprentice CLIA: [id number] Sodium 141 135-145 mmol/L Potassium 4.0 3.5-5.3 [...] Orally Once a day Active Vital Signs Blood pressure systolic 132 mm Hg 07/29/19 25 Blood pressure diastolic 78 mm Hg 025 Heart Rate 104 /min 07/28/2024 Height 64.50 in 07/28/2024 Weight 196.4 lbs 07/28/2024 BMI 33.19 kg/m2 07/28/2024 Encounters Encounter Location Date Provider Diagnosis [facility] [address], [place] [phone] 07/28/2024 Antony Patino Encounter for postoperative wound [...] * Neha SANCHEZOB:0 1950 (74 yo F)Acc No.[id number]:07/28/2024 Progress Notes Patient: Neha TENORIO Provider: Babatunde Patino M.D. :1950 A ge:74 Y S ex:Female Date:07/28/2024 Address:[address] [place] [address] , [facility], [facility] Subjective: * Chief Complaints: * 1 . [...] * Images: Billing Information: * Visit Code: 48546 Office Visit, Est Pt., Level 3. * Procedure Codes: G2211 Complex e/m visit add on. 3075F SYST BP GE 130 - 139MM HG. 3078F DIAST BP < 80 MM HG. * Electronic signature of Karen Patino MD on 01/21/2025 at 07:59 AM EDT Sign off status: Pending * Provider: Babatunde Patino M.D. Date: 0 07/28/2024 Generated for Printi ng/Faconstantinog/eTransmitting on: 0 01/21/2025 07:59 AM EDT History and Physical Notes * HPI [...]
--- OUTSIDE RECORDS SUMMARY | 2024-09-17 09:45 | XMS_ITS ---
Author Organization [facility] Address [address] [place] [id number] Care Team Providers Care Mexican Food Maker Name Role Phone Antony Patino Primary Care Provider Alida Rowland Unavailable [phone] Allergies No Known Allergies Results Component Value Reference Range Notes CBC Venipuncture (in house) Reviewed date:09/23/2024 03:32:45 PM Interpretation:Normal Performing Lab: Notes/Report: Normal wbc 6.9 3.5 - 10 lymph 26.3% 15 - 50 mid 6.5% 2 - 15 gran 67.2% 35 - 80 rbc 4.37 3.5 - 5.5 hgb 12.9 11.5 - 16.5 hct 39.3 35 - 55 mcv 90.0 75 - 100 mch 29.6 25 - 35 mchc 32.9 31 - 38 platlet 224 100 - 400 P-Comprehensive Metabolic Pa jodi (CMP) Reviewed date:09/23/2024 03:32:45 PM Interpretation:bun 7, prot 5.9 Performing Lab: Notes/Report: Test performed by [facility] [address] [place] [address] , [address], [place] [address] Baldo Ortega MD, Forest Nursery Supervisor CLIA: [id number] Sodium 142 135-145 mmol/L Potassium 3.5 3.5-5.3 mmol/L Chloride 102 97-108 mmol/L CO2 25 22-32 mmol/L Glucose 95 65-99 mg/dL BUN 7 8-23 mg/dL Creatinine 0.61 0.50-1.00 mg/dL Calcium 9.1 8.6-10.4 mg/dL eGFR by Creatinine 93 >59 mL/min/1.73m2 Protein 5.9 6.0-8.3 g/dL Albumin 3.8 3.5-5.3 g/dL Alkaline Phosphatase 86 35-121 IU/L ALT (SGPT) 15 <5-47 IU/L AST (SGOT) 22 <5-40 IU/L Bilirubin, Total 0.4 <0.2-1.2 mg/dL A/G Ratio 1.8 1.1-2.5 P-Magnesium Reviewed date:09/23/2024 03:32:45 PM Interpretation:Normal Performing Lab: Notes/Report: Test performed by [facility], [address] , [address], [place] [address] Baldo Ortega MD, Forest Nursery Supervisor CLIA: [id number] Magnesium 1.8 1.6-2.4 mg/dL Reason For Referral Diagnosis 1 Nausea with vomiting , unspecified (R11.2) Referral Organization [facility] Referring Provider First Name Alida Referring Provider Last Name Kashif Referring Provider Speciality Physician Renewable Energy Engineer Referred Provider Gastroenterology, . Referred Provider Specialty Gastroentero logy General Notes Needs an appt with Jenae Covarrubias Brynn 09/22/2024 09:07:57 AM > faxed to Dr. Webb office Referral Priority Routine REASON FOR VISIT stomach issues, nausea Medications Medication SIG (Take, Route, Frequency, Duration) Notes Start Date End Date Status FeroSul 325 (65 Fe) MG TAKE 1 TABLET GENARO ; Duration: 90 Active Ondansetron 4 MG 1 tablet on the tong ue and allow to dissolve Orally Three times a day, prn 09/17/2024 Active PARoxetine HCl 20 MG TAKE 1 TABLET EVERY DAY; Duration: 90 Active Metoprolol Succinate ER 25 MG TAKE 1 TABLET EVERY DAY; Duration: 90 Active Lisinopril 5 MG TAKE 1 TABLET EVERY DAY; Duration: 90 Active Fluticasone Propionate 50 MCG/ACT 1 spray in each nostril in each nostril once a day 03/15/2021 Active Triamcinolone Acetonide 0.1 % APPLY TOPICALLY THREE TIMES DAILY; Duration: 60 Active Omeprazole 40 MG TAKE 1 CAPSULE ONE T YVON DAILY; Duration: 90 Active Cetirizine HCl 10 MG 1 tab(s) orally onc e a day; Duration: 90 days Active oxyBUTYnin Chloride ER 10 mg TAKE ONE TABLET BY MOUTH ONCE A DAY; Duration: 30 Active Famotidine 20 MG 1 tab(s) orally as needed Active Vitamin B-12 1000 MCG 1 tab(s) sublingua lly once a day Active Clopidogrel Bisulfate 75 MG 1 tablet Orally Once a day; Duration: 30 day(s) Active Multivitamin - 1 tab(s) orally once a day Active Isosorbide Dinitrate 30 MG 1 tablet Orally once daily Active Ondansetron 4 MG 1 tablet on the tong ue and allow to dissolve Orally Once a day Active Atorvastatin Calcium 80 MG 1 tablet Orally Once a day; Duration: 30 day(s) Active HYDROcodone-Acetaminophen 7.5-325 MG 1 tablet as needed Orally every 6 hrs Not-Taking Vital Signs Blood pressure systolic 120 mm Hg 09/18/19 25 Blood pressure diastolic 78 mm Hg 025 Heart Rate 68 /min 09/17/2024 Height 64.50 in 09/17/2024 Weight 174.4 lbs 09/17/2024 BMI 29.47 kg/m2 09/17/2024 Encounters Encounter Location Date Provider Diagnosis [facility] [address] [facility] [address] [id number] 09/17/2024 Alida Rowland Nausea with vomiting , unspecified R11.2 ; Diarrhea, unspecified R19.7 ; Other constipation K59.09 ; BMI 29.0-29.9,adult Z68.29 ; Anxiety F41.9 ; Hyperlipidemia, unspecified hyperlipidemia type E78.5 and Essential hypertension I10 Assessments Encounter Date Diagnosis (ICD Code) Assessment Notes Treatment Notes Treatment Clinical Notes Section Notes 09/17/2024 Nausea with vomiting, unspecified (ICD-10 - R11.2) Will need an appt with GI. 09/17/2024 Diarrhea, unspecified (ICD-10 - R19.7) 09/17/2024 Other constipation (ICD-10 - K59.09) 09/17/2024 BMI 29.0-29.9,adult (ICD-10 - Z68.29) 09/17/2024 Anxiety (ICD-10 - F41.9) 09/17/2024 Hyperlipidemia, unspecified hyperlipidemia type (ICD-10 - E78.5) 09/17/2024 Essential hypertension (ICD-10 - I10) Plan Of Treatment Medication Medication Name Sig Start Date Stop Date Notes Ondansetron 4 MG 1 tablet on the tong ue and allow to dissolve Orally Three times a day, prn 09/17/2024 Treatment Notes Assessment Notes Nausea with vomiting, unspecified Will n eed an appt with GI. Referrals Referral Date Details 09/21/2024 09/21/2024, . Gastro enterology Next Appt Details Follow Up: via phone to repo rt test results, Reason: Progress Notes * Neha SANCHEZEDOB:0 1950 (74 yo F)Acc No.[id number]:09/17/2024 Progress Notes Patient: Neha TENORIO Provider: JOSE CARLOS Arias :1950 A ge:74 Y S ex:Female Date:09/17/2024 Address:[address] [place] [address] , [address] Pcp:Antony Patino Subjective: * Chief Complaints: * 1 . Stomach issues, nausea. * HPI: G astroenterology: 74 year old female presents with c/o Nausea P t states she had hiatal hernia surgery in June to repair a hiatal hernia. She has h ad nausea every day since. Pt states she has vomiting sometimes as well. Pt states it doesn't matter if she eats or not. Pt states even with drinking water she feels nauseous. Pt states she will sometimes be constipated and other times have diarrhea. She has discussed this with her surgeon and he gave her zofran but offered no real explanation to how long it would last.. c/o Vomiting. c/o Diarrhea. c/o constipation. Denies : Abdominal Pain. D enies : Fever. * ROS: D ERMATOLOGY: no R fiordaliza. n o H papi. G ASTROENTEROLOGY: no N ausea. n o V omiting. n o D iarrhea.? U ROLOGY: no D ifficulty urinating. n [...] Paraesophageal Hernia Repair with Mesh 07/21/2024. * Family History: F ather: , diagnosed with Heart Disease, Diabetes, Stroke. M other: , family history unknown . P aternal Grand Father: . P aternal Grand Mother: . Maternal Grand Father: . M aternal Grand Mother: . C hildrcyril: RA, diagnosed with Mental Illness, Diabetes. S jose maria: diagnosed with Heart Disease. 1 brother(s) , [...] dissolve Orally Once a day , Taking Atorvastatin Calcium 80 MG Tablet [...] Taking Omeprazole 40 MG Capsule Delayed Release TAKE 1 CAPSULE ONE TIME DAILY , Taking oxyBUTYnin Chloride ER 10 mg Tablet Extended Release 24 Hour TAKE ONE TABLET BY MOUTH ONCE A DAY , Taking FeroSul 325 (65 Fe) MG Tablet TAKE 1 TABLET EVERY DAY , Taking PARoxetine HCl 20 MG Tablet TAKE 1 TABLET EVERY DAY , Taking Lisinopril 5 MG Tablet TAKE 1 TABLET EVERY DAY , Taking Metoprolol Succinate ER 25 MG Tablet Extended Release 24 Hour TAKE 1 TABLET EVERY DAY , Not-Taking HYDROcodone-Acetaminophen 7.5-325 MG Tablet 1 tablet as needed Orally every 6 hrs , Medication List reviewed and reconciled with the patient * Allergies: N .K.D.A. Objective: * Vitals: W t: 174.4, Temp: 97.6, BP: 120/78, HR: 68, Nurse: RITA, Ht: 64.50, BMI:29.47. * Examination: G eneral Examination: General Appearance: N AD. H EENT: u nremarkable.?Oral cavity: n o lesions, mucosa moist and WNL, no erythema. N janina: s upple, no lymphadenopathy. C hest: n ormal shape and expansion. H eart: R SR. L ungs: c lear to auscultation. A bdomen: soft, ttp in the epigastric area. N eurologic Exam: I ntact, gait normal. S kin: n ormal, no rash. P eripheral pulses: n ormal (2+) bilaterally. E xtremities: n o leg edema. Assessment: * Assessment: 1. N ausea with vomiting, unspecified - R11.2 (Primary) 2 . D iarrhea, unspecified - R19.7 3 . O ther constipation - K59.09 4 . B ND 29.0-29.9,adult - Z68.29 5 . A nxiety - F41.9 6 . H yperlipidemia, unspecified hyperlipidemia type - E78.5 7 . E ssential hypertension - I10? Plan: * Treatment: Value Reference Range A /G Ratio 1.8 1.1-2.5 - * A lbumin 3.8 3.5-5.3 - g/dL * A lkaline Phosphatase 86 35-121 - IU/L * A LT (SGPT) 15 <5-47 - IU/L * A ST (SGOT) 22 <5-40 - IU/L * B ilirubin, Total 0.4 <0.2-1.2 - mg/dL * B UN 7 L 8-23 - mg/dL * C alcium 9.1 8.6-10.4 - mg/dL * C hloride 102 97-108 - mmol/L * C O2 25 22-32 - mmol/L * C reatinine 0.61 0.50-1.00 - mg/dL * G lucose 95 65-99 - mg/dL * P otassium 3.5 3.5-5.3 - mmol/L * S odium 142 135-145 - mmol/L * P rotein 5.9 L 6.0-8.3 - g/dL * e GFR by Creatinine 93 >59 - mL/min/1.73m2 * Liliya Morin 09/23/2024 03: 32:37 PM > See phone encounter ?LAB: P-Magnesium (Collection Date & Time - 09/17/2024 01:20 PM)?Normal* Value Reference Range M agnesium 1.8 1.6-2.4 - mg/dL * Liliya Morin 09/23/2024 03: 32:37 PM > See phone encounter ?LAB: CBC Venipuncture (in house) (Collection Date & Time - 09/17/2024)? Normal* Value Reference Range w bc 6.9 3.5 - 10 * l ymph 26.3% 15 - 50 * m id 6.5% 2 - 15 * g ran 67.2% 35 - 80 * r bc 4.37 3.5 - 5.5 * h gb 12.9 11.5 - 16.5 * h ct 39.3 35 - 55 * m cv 90.0 75 - 100 * m ch 29.6 25 - 35 * m chc 32.9 31 - 38 * p latlet 224 100 - 400 * Antoinette Ramsey 09/17/2024 02 :39:09 PM > Liliya Morin 09/23/2024 03:32:37 PM > See phone encounter Notes: Will need an appt with GI. ? Referral To:. Gastroenterology??Gastroenterology ?Reason: * Procedure Codes: G 2211 Complex e/[place], [address] CBC WITH AUTO DIFF, 3074F SYST BP LT 130 MM HG, 3078F DIAST BP < 80 MM HG, G8420 BMI<30 AND >=22 CALC & DOCU, G8950 PREHTN/HTN BP DOC INDCD F/U DOC, G8752 MOST RECENT SYSTOLIC BP < 140MM HG, G8754 MOST RECENT DIASTOLIC BP < 90MM HG * Follow Up: v ia phone to report test results * Images: Billing Information: * Visit Code: 91615 Office Visit, Est Pt., Level 4. * Procedure Codes: G2211 Complex e/[place]. [address] CBC WITH AUTO DIFF. 3074F SYST BP LT 130 MM HG. 3078F DIAST BP < 80 MM HG. G8420 BMI<30 AND >=22 CALC & DOCU. G8950 PREHTN/HTN BP DOC INDCD F/U DOC. G8752 MOST RECENT SYSTOLIC BP < 140MM HG. G8754 MOST RECENT DIASTOLIC BP < 90MM HG. * Electronic signature of JOSE CARLOS Laureano on 01/21/2025 at 07:59 AM EDT Sign off status: Pending * Provider: JOSE CARLOS Arias Date: 0 09/17/2024 Generated for Brandon hernandez/Raina/eTransmitting on: 0 01/21/2025 07:59 AM EDT History and Physical Notes * HPI (History of Present Illness) Category Sub-Category Detail Notes Category Not es Gastroenterology Fever Vomiting Abdominal Pain Diarrhea Nausea Pt states she had hi atal hernia surgery in June to repair a hiatal hernia. She has had nausea every day since. Pt states she has vomiting sometimes as well. Pt states it doesn't matter if she eats or not. Pt states even with drinking water she feels nauseous. Pt states she will sometimes be constipated and other times have diarrhea. She has discussed this with her surgeon and he gave her zofran but offered no real explanation to how long it would last. constipation Examination Category Sub-Category Detail Notes Category Not es General Examination HEENT: unremarkable Heart: RSR Lungs: clear to auscultatio n Abdomen: soft, ttp in the epi gastric area Extremities: no leg edema General Appearance: NAD Skin: normal, no rash Neurologic Exam: Intact, gait normal Neck: supple, no lymphaden opathy Oral cavity: no lesions, mucosa m oist and WNL, no erythema Peripheral pulses: normal (2+) bilatera lly Chest: normal shape and exp ansion Consultation Request Notes Referral Date Referring Provider Referred Provider Not es 09/21/2024 Alida Rowland Gastroenterology, .
--- OUTSIDE RECORDS SUMMARY | 2024-09-29 07:30 | XMS_ITS ---
Author Organization [facility] Address [address] [place] [id number] Care Team Providers Care Head Start Assistant Teacher Name Role Phone Antony Patino Primary Care Provider Allergies No Known Allergies Results Component Value Reference Range Notes CBC Venipuncture (in house) Reviewed date:09/30/2024 01:46:16 PM Interpretation:Normal Performing Lab: Notes/Report: Normal wbc 4.8 3.5 - 10 lymph 36.2% 15 - 50 mid 6.1% 2 - 15 gran 57.7% 35 - 80 rbc 4.48 3.5 - 5.5 hgb 13.3 11.5 - 16.5 hct 40.6 35 - 55 mcv 90.5 75 - 100 mch 29.7 25 - 35 mchc 32.8 31 - 38 platlet 231 100 - 400 P-Amylase Reviewed date:09/30/2024 01:46:16 PM Interpretation:25 Performing Lab: Notes/Report: Test performed by [facility] [address] [place], [place] [address] [place] , [address], [place] [address] Baldo Ortega MD, Quencher Operator CLIA: [id number] Amylase 25 28-100 U/L P-Comprehensive Metabolic Pa jodi (CMP) Reviewed date:09/30/2024 01:46:16 PM Interpretation:Na 146, glu 137, BUN 7 Performing Lab: Notes/Report: Test performed by [facility] [address] [place], [place] [address] [place] , [address], [place] [address] Baldo Ortega MD, Quencher Operator CLIA: [id number] Sodium 146 135-145 mmol/L Potassium 3.6 3.5-5.3 mmol/L Chloride 105 97-108 mmol/L CO2 26 22-32 mmol/L Glucose 137 65-99 mg/dL BUN 7 8-23 mg/dL Creatinine 0.78 0.50-1.00 mg/dL Calcium 9.4 8.6-10.4 mg/dL eGFR by Creatinine 79 >59 mL/min/1.73m2 Protein 6.1 6.0-8.3 g/dL Albumin 4.0 3.5-5.3 g/dL Alkaline Phosphatase 90 35-121 IU/L ALT (SGPT) 17 <5-47 IU/L AST (SGOT) 22 <5-40 IU/L Bilirubin, Total 0.4 <0.2-1.2 mg/dL A/G Ratio 1.9 1.1-2.5 P-Lipase Reviewed date:09/30/2024 01:46:16 PM Interpretation:Normal Performing Lab: Notes/Report: Test performed by [facility] [address] [place] [address] , [address] [place] [id number] Baldo Ortega MD, Quencher Operator CLIA: [id number] Lipase 14.5 13.0-60.0 u/L P-Prothrombin Time (PT) Reviewed date:09/30/2024 01:46:16 PM Interpretation:Normal Performing Lab: Notes/Report: Test performed by [facility] [address] [place] [address] , [place] [address] Baldo Ortega MD, Quencher Operator CLIA: [id number] PT 10.9 9.5-12.2 sec INR 1.0 0.9-1.2 INR Reference Ranges for patients on anticoagulant therapy: RANGES: 2.0 - 3.0: Indications: Treatment of venous thrombosis or pulmonary embolism. Prevention of systemic embolism. Tissue heart valves. Acute myocardial infarction. Atrial fibrillation. 2.5 - 3.5: Indications: Recurrent embolism. Mechanical heart valves. Antiphospholipid antibodies. INR IS FOR USE IN STABILIZED ANTICOAGULATED PATIENTS. Elevated coagulation studies may be seen in patients with hematocrit of greater than 55%. Reference: Practical Diagnosis of Hematological Disorders. 3rd Edition. 2000. p 853. P-Partial Thromboplastin Guille e (PTT) Reviewed date:09/30/2024 01:46:16 PM Interpretation:Normal Performing Lab: Notes/Report: Test performed by [facility], [address] , [address], [place] [address] Baldo Ortega MD, Quencher Operator CLIA: [id number] Partial Thromboplastin Time (PTT) 27.0 23.9-33.0 sec Heparin therapeutic range has not been validated for this assay. REASON FOR VISIT Discuss Bruising and Get Labs Medications Medication SIG (Take, Route, Frequency, Duration) Notes Start Date End Date Status Cetirizine HCl 10 MG 1 tab(s) orally onc e a day; Duration: 90 days Active Promethazine HCl 12.5 MG 1 tablet as nee ded Orally every 6 hrs 09/29/2024 Active Omeprazole 40 MG TAKE 1 CAPSULE ONE T YVON DAILY; Duration: 90 Active Fluticasone Propionate 50 MCG/ACT 1 spray in each nostril in each nostril once a day 03/15/2021 Active Triamcinolone Acetonide 0.1 % APPLY TOPICALLY THREE TIMES DAILY; Duration: 60 Active Multivitamin - 1 tab(s) orally once a day Active Vitamin B-12 1000 MCG 1 tab(s) sublingua lly once a day Active Clopidogrel Bisulfate 75 MG 1 tablet Ora lly Once a day; Duration: 30 day(s) Active Isosorbide Dinitrate 30 MG 1 tablet Oral ly once daily Active Famotidine 20 MG 1 tab(s) orally as needed Active Metoprolol Succinate ER 25 MG TAKE 1 TABLET EVERY DAY; Duration: 90 Active Ondansetron 4 MG 1 tablet on the tong ue and allow to dissolve Orally Three times a day, prn 09/17/2024 Active Ondansetron 4 MG 1 tablet on the tong ue and allow to dissolve Orally Once a day Active Atorvastatin Calcium 80 MG 1 tablet Oral ly Once a day; Duration: 30 day(s) Active PARoxetine HCl 20 MG TAKE 1 TABLET EVERY DAY; Duration: 90 Active Lisinopril 5 MG TAKE 1 TABLET EVERY DAY; Duration: 90 Active oxyBUTYnin Chloride ER 10 mg TAKE ONE TABLET BY MOUTH ONCE A DAY; Duration: 30 Active FeroSul 325 (65 Fe) MG TAKE 1 TABLET GENARO RY DAY; Duration: 90 Active Vital Signs Blood pressure systolic 106 mm Hg 09/30/19 25 Blood pressure diastolic 64 mm Hg 025 Heart Rate 95 /min 09/29/2024 Height 64.50 in 09/29/2024 Weight 167 lbs 09/29/2024 BMI 28.22 kg/m2 09/29/2024 Encounters Encounter Location Date Provider Diagnosis [facility] [address] [place] [id number] 09/29/2024 Antony Patino Easy bruising R23.3 ; Nausea and vomiting, unspecified vomiting type R11.2 and BMI 28.0-28.9,adult Z68.28 Assessments Encounter Date Diagnosis (ICD Code) Assessment Notes Treatment Notes Treatment Clinical Notes Section Notes 09/29/2024 Easy bruising (ICD-10 - R23.3) 09/29/2024 Nausea and vomiting, unspecified vomiting type (ICD-10 - R11.2) 09/29/2024 BMI 28.0-28.9,adult (ICD-10 - Z68.28) Plan Of Treatment Medication Medication Name Sig Start Date Stop Date Notes Promethazine HCl 12.5 MG 1 tablet as nee ded Orally every 6 hrs 09/29/2024 Next Appt Details Follow Up: via phone to repo rt progress, Reason: Progress Notes * Neha SANCHEZJASONOB:0 1950 (74 yo F)Acc No.[id number]:09/29/2024 Progress Notes Patient: Neha TENORIO Provider: Babatunde Patino M.D. :1950 A ge:74 Y S ex:Female Date:09/29/2024 Address:[address] [place] [address] , [address], [place] Subjective: * Chief Complaints: * 1 . Discuss Bruising and Get Labs. * HPI: H ematology: 74 year old female presents with c/o Bruising P t complains of multiple bruises all over her body t hat just pop up . Pt states bruises are not painful unless they really big . G astroenterology: c/o Nausea P t was seen on 09/17 for nausea. Pt was rx'd Zofran and states that is does help at times but pt would like something different that will work better . * ROS: D ERMATOLOGY: no R [...] Family History: F ather: , diagnosed with Stroke, Heart Disease, Diabetes. M other: , family history unknown . P aternal Grand Father: . P aternal Grand Mother: . Maternal Grand Father: . M aternal Grand Mother: . C scott: RA, diagnosed with Diabetes, Mental Illness. S jose maria: diagnosed with Heart Disease. [...] TAKE 1 TABLET EVERY DAY , Taking Ondansetron 4 MG Tablet Disintegrating 1 tablet on the tongue and allow to dissolve Orally Three times a day, prn , Discontinued HYDROcodone-Acetaminophen 7.5-325 MG Tablet 1 tablet as needed Orally every 6 hrs , Medication List reviewed and reconciled with the patient * Allergies: N .K.D.A. Objective: * Vitals: W t: 167, Temp: 97.9, BP: 106/64, HR: 95, Nurse: telma, Ht: 64.50, BMI:28.22. * Examination: G eneral Examination: General Appearance: N AD. H eart: R SR. L ungs:?clear to auscultation. A bdomen: b owel sounds present, soft and nontender. S kin:?scattered bruises, mainly on the extremities, few on the trunk. Assessment: * Assessment: 1. E asy bruising - R23.3 (Primary) 2 . N ausea and vomiting, unspecified vomiting type - R11.2 3 . B CA 28.0-28.9,adult - Z68.28 Plan: * Treatment: Value Reference Range A /G Ratio 1.9 1.1-2.5 - * A lbumin 4.0 3.5-5.3 - g/dL * A lkaline Phosphatase 90 35-121 - IU/L * A LT (SGPT) 17 <5-47 - IU/L * A ST (SGOT) 22 <5-40 - IU/L * B ilirubin, Total 0.4 <0.2-1.2 - mg/dL * B UN 7 L 8-23 - mg/dL * C alcium 9.4 8.6-10.4 - mg/dL * C hloride 105 97-108 - mmol/L * C O2 26 22-32 - mmol/L * C reatinine 0.78 0.50-1.00 - mg/dL * G lucose 137 H 65-99 - mg/dL * P otassium 3.6 3.5-5.3 - mmol/L * S odium 146 H 135-145 - mmol/L * P rotein 6.1 6.0-8.3 - g/dL * e GFR by Creatinine 79 >59 - mL/min/1.73m2 * Liliya Morin 09/30/2024 01:4 6:01 PM EDT > See phone encounter ?LAB: P-Prothrombin Time (PT) (Collection Date & Time - 09/29/2024 10:58 AM) ?Normal* Value Reference Range I NR 1.0 0.9-1.2 - * P T 10.9 9.5-12.2 - sec * Liliya Morin 09/30/2024 01:4 6:01 PM EDT > See phone encounter ?LAB: P-Partial Thromboplastin Time (PTT) (Collection Date & Time - 09/29/2024 10:58 AM)?Normal* Value Reference Range P artial Thromboplastin Time (PTT) 27.0 23.9-33 .0 - sec * Liliya Morin 09/30/2024 01:4 6:01 PM EDT > See phone encounter ?LAB: CBC Venipuncture (in house) (Collection Date & Time - 09/29/2024)? Normal* Value Reference Range w bc 4.8 3.5 - 10 * l ymph 36.2% 15 - 50 * m id 6.1% 2 - 15 * g ran 57.7% 35 - 80 * r bc 4.48 3.5 - 5.5 * h gb 13.3 11.5 - 16.5 * h ct 40.6 35 - 55 * m cv 90.5 75 - 100 * m ch 29.7 25 - 35 * m chc 32.8 31 - 38 * p latlet 231 100 - 400 * Liliya Morin 09/30/2024 01:4 6:01 PM EDT > See phone encounter 2.?Nausea and vomiting, unspecified vomiting type? Start Promethazine HCl Tablet, 12.5 MG, 1 tablet as needed, Orally, every 6 hrs, 20, Refills 1. ?LAB: P-Amylase (Collection Date & Time - 09/29/2024 10:58 AM)?25* Value Reference Range A mylase 25 L 28-100 - U/L * Liliya Morin 09/30/2024 01:4 6:01 PM EDT > See phone encounter ?LAB: P-Comprehensive Metabolic Panel (CMP) (Collection Date & Time - 09/29/2024 10:58 AM)?Na 146, glu 137, BUN 7* Value Reference Range A /G Ratio 1.9 1.1-2.5 - * A lbumin 4.0 3.5-5.3 - g/dL * A lkaline Phosphatase 90 35-121 - IU/L * A LT (SGPT) 17 <5-47 - IU/L * A ST (SGOT) 22 <5-40 - IU/L * B ilirubin, Total 0.4 <0.2-1.2 - mg/dL * B UN 7 L 8-23 - mg/dL * C alcium 9.4 8.6-10.4 - mg/dL * C hloride 105 97-108 - mmol/L * C O2 26 22-32 - mmol/L * C reatinine 0.78 0.50-1.00 - mg/dL * G lucose 137 H 65-99 - mg/dL * P otassium 3.6 3.5-5.3 - mmol/L * S odium 146 H 135-145 - mmol/L * P rotein 6.1 6.0-8.3 - g/dL * e GFR by Creatinine 79 >59 - mL/min/1.73m2 * Liliya Morin 09/30/2024 01:4 6:01 PM EDT > See phone encounter ?LAB: P-Lipase (Collection Date & Time - 09/29/2024 10:58 AM)?Normal* Value Reference Range L ipase 14.5 13.0-60.0 - u/L * Liliya Morin 09/30/2024 01:4 6:01 PM EDT > See phone encounter * Procedure Codes: G 2211 Complex e/[place], [address] CBC WITH AUTO DIFF, 1036F TOBACCO NON-USER, G8420 BMI<30 AND >=22 CALC & DOCU, G8783 BP SCR PRFRM RCMDD DEFIND SCR INTVL, G8752 MOST RECENT SYSTOLIC BP < 140MM HG, G8754 MOST RECENT DIASTOLIC BP < 90MM HG * Follow Up: v ia phone to report progress * Images: Billing Information: * Visit Code: 36894 Office Visit, Est Pt., Level 4. * Procedure Codes: G2211 Complex e/[place]. [address] CBC WITH AUTO DIFF. 1036F TOBACCO NON-USER. G8420 BMI<30 AND >=22 CALC & DOCU. G8783 BP SCR PRFRM RCMDD DEFIND SCR INTVL. G8752 MOST RECENT SYSTOLIC BP < 140MM HG. G8754 MOST RECENT DIASTOLIC BP < 90MM HG. * Electronic signature of Karen Patino MD on 01/21/2025 at 07:59 AM EDT Sign off status: Pending * Provider: Babatunde Patino M.D. Date: 0 09/29/2024 Generated for Brandon hernandez/Raina/eTransmitting on: 0 01/21/2025 07:59 AM EDT History and Physical Notes * HPI (History of Present Illness) Category Sub-Category Detail Notes Category Not es Gastroenterology Nausea Pt was seen on 09/17 for nausea. Pt was rx'd Zofran and states that is does help at times but pt would like something different that will work better Hematology Bruising Pt complains of multiple bruises all over her body that just pop up . Pt states bruises are not painful unless they really big Examination Category Sub-Category Detail Notes Category Not es General Examination Heart: RSR Lungs: clear to auscultatio n Abdomen: bowel sounds present , soft and nontender General Appearance: NAD Skin: scattered bruises, m ainly on the extremities, few on the trunk
--- OUTSIDE RECORDS SUMMARY | 2024-11-02 06:15 | XMS_ITS ---
Author Organization [facility] Address [address] [place] [id number] Care Team Providers Care Jigger Machine Operator Name Role Phone Antony Patino Primary Care Provider [phone] Allergies No Known Allergies Results Component Value [...] day Active Vital Signs Blood pressure systolic 112 mm Hg 11/03/19 25 Blood pressure diastolic 70 mm Hg 025 Heart Rate 67 /min 11/02/2024 Height 64.50 in 11/02/2024 Weight 170.4 lbs 11/02/2024 BMI 28.79 kg/m2 11/02/2024 Encounters Encounter Location Date Provider Diagnosis [facility] [address] [id number] 11/02/2024 Antony Patino Age-related cataract , unspecified age-related cataract type, unspecified laterality H25.9 ; Pre-op exam Z01.818 ; Essential hypertension I10 ; Coronary artery disease involving sioux coronary artery of sioux heart without angina pectoris I25.10 ; Hyperlipidemia, [...] - I10) 11/02/2024 Coronary artery disease involving sioux coronary artery of sioux heart without angina pectoris (ICD-10 - I25.10) [...] * Neha SANCHEZEDOB:0 1950 (74 yo F)Acc No.[id number]:11/02/2024 Physical Patient: Neha TENORIO Provider: Babatunde Patino M.D. :1950 A ge:74 Y S ex:Female Date:11/02/2024 Address:[address] [place], [place] [id number] Subjective: * Chief Complaints: * 1 . Pre op physical. * HPI: A dult Pre-Op physical: 74 year old female presents with c/o Procedure: C ataract surgery. c/o Date of Procedure: 0 11/13/2024. c/o [facility] Sur[facility] * ROS: D ERMATOLOGY: no R [...] 4 . C oronary artery disease involving sioux coronary artery of sioux heart without angina pectoris - I25.10 5 . H yperlipidemia, unspecified hyperlipidemia type - E78.5 6 . O veractive bladder - N32.81 7 .?Allergic rhinitis, unspecified seasonality, unspecified trigger - J30.9 8 . P ersonal history of nicotine dependence - Z87.891 9 . S creening for lung cancer - Z12.2 1 0. B SC 28.0-28.9,adult - Z68.28 Plan: * Treatment: Value [...] * Images: Billing Information: * Visit Code: 31365 Office Visit, Est Pt., Level 4. * Procedure Codes: G2211 Complex e/m visit add on. 1036F TOBACCO NON-USER. G8420 BMI<30 AND >=22 CALC & DOCU. G8783 BP SCR PRFRM RCMDD DEFIND SCR INTVL. G8752 MOST RECENT SYSTOLIC BP < 140MM HG. G8754 MOST RECENT DIASTOLIC BP < 90MM HG. * Electronic signature of Karen Patino MD on 01/21/2025 at 08:00 AM EDT Sign off status: Pending * Provider: Babatunde Patino M.D. Date: 0 11/02/2024 Generated for Brandon hernandez/Raina/eTransmitting on: 0 01/21/2025 08:00 AM EDT History and Physical Notes * HPI (History of Present Illness) Category Sub-Category Detail Notes Category Not es Adult Pre-Op physical Procedure: Cataract surgery Date of Procedure: 11/13/2024 Name of Surgeon: Dr. Don Gil, [facility] Examination Category Sub-Category Detail Notes Category Not es General Examination Heart: RSR Lungs: clear to auscultatio n Extremities: no leg edema General Appearance: NAD Skin: normal, no rash Neck: supple, no lymphaden opathy Oral cavity: no lesions, mucosa m oist and WNL, no erythema Peripheral pulses: normal (2+) bilatera lly
--- NOTE | 2025-01-21 | CA_ITS ---
APPROVED REPORT Exam: Pharmacologic Technologist: Kassie Arreaga Ht: 5 ft 6 in Wt: 160 lbs BSA: 1.82 m2 HR: 68 bpm BP: 162/83 mmHg Medical History Cardiac Risk Factors: HTN, Hyperlipidemia, FHX of CAD Stress Test Details HR Resting HR: 68 bpm Max Heart Rate (APMHR): 145.906340 bpm Target HR (85% APMHR): 123.394992 bpm Recovery HR: 84 bpm BP Resting BP: 162.0/83.0 mmHg Recovery BP: 153.0/78.0 mmHg ECG Stress ECG Conclusion During lexiscan pt experinced no symptoms. No arrhythmias noted. Less than .5mm upsloping ST segment changes. Nondiagnostic ECG/lexiscan. Electronically signed by : Carlotta Elena MD 01/21/2025 13:06:07
--- OUTSIDE RECORDS SUMMARY | 2025-01-21 07:59 | XMS_ITS | Patient Health Record ---
Author Organization [facility] Address [address] [place] [id number] Care Team Providers Care Gas Jockey Name Role Phone Sukumar Antony Primary Care Provider [phone] Alida Rowland Unavailable [phone] Allergies No Known Allergies Results Component Value Reference Range Notes P-Amylase Reviewed date:09/30/2024 01:46:16 PM Interpretation:25 Performing Lab: Notes/Report: Test performed by [facility] [address] [place] [address] , [address], [place] [address] Baldo Ortega MD, Management Professor CLIA: [id number] Amylase 25 28-100 U/L P-Comprehensive Metabolic Pa jodi (CMP) Reviewed date:09/30/2024 01:46:16 PM Interpretation:Na 146, glu 137, BUN 7 Performing Lab: Notes/Report: Test performed by [facility] [address] [place] [address] , [address], [place] [address] Baldo Ortega MD, Management Professor CLIA: [id number] Sodium 146 135-145 mmol/L Potassium 3.6 3.5-5.3 [...] Interpretation:Normal Performing Lab: Notes/Report: Test performed by [facility] [address] [place] [address] , [place] [address] Baldo Ortega MD, Management Professor CLIA: [id number] Lipase 14.5 13.0-60.0 u/L P-Prothrombin Time (PT) Reviewed date:09/30/2024 01:46:16 PM Interpretation:Normal Performing Lab: Notes/Report: Test performed by [facility] [address] [place] [address] [place] [address] Baldo Ortega MD, Management Professor CLIA: [id number] PT 10.9 9.5-12.2 sec INR 1.0 0.9-1.2 [...] Interpretation:Normal Performing Lab: Notes/Report: Test performed by [facility] [address] [place] [address] [address], [place] [address] Baldo Ortega MD, Management Professor CLIA: [id number] Partial Thromboplastin Time (PTT) 27.0 23.9-33.0 sec Heparin therapeutic range has not been validated for this assay. CBC Venipuncture (in house) Reviewed date:09/30/2024 01:46:16 [...] Interpretation:Normal Performing Lab: Notes/Report: Test performed by [facility] [address] [place] [address] , [address], [place] [address] Baldo Ortega MD, Management Professor CLIA: [id number] Magnesium 1.8 1.6-2.4 mg/dL P-Comprehensive Metabolic Pa jodi (CMP) Reviewed date:09/23/2024 03:32:45 PM Interpretation:bun 7, prot 5.9 Performing Lab: Notes/Report: Test performed by [facility] [address] [place] [address] , [address], [place] [address] Baldo Ortega MD, Management Professor CLIA: [id number] Sodium 142 135-145 mmol/L Potassium 3.5 3.5-5.3 [...] - 38 platlet 224 100 - 400 Bone density Reviewed date:11/03/2024 11:02:49 AM Interpretation:osteopenia left hip, new diagnosis Performing Lab: Notes/Report: osteopenia left hip, new diagnosis Bone density osteopenia left hip Mammogram Reviewed date:11/02/2024 05:13:06 PM Interpretation:Negative Performing Lab: Notes/Report: Negative result negative H-CBC Reviewed date:11/16/2024 05:04:40 PM Interpretation:rbc 4.17, [...] date:11/03/2024 11:02:49 AM Interpretation: Performing Lab: Notes/Report: P-Basic Metabolic Panel (BMP ) Reviewed date:07/29/2024 09:28:08 AM Interpretation:satisfactory Performing Lab: Notes/Report: Test performed by [facility] [address] [place] [address] , [address] , [place] [address] Baldo Ortega MD, Management Professor CLIA: [id number] Sodium 141 135-145 mmol/L Potassium 4.0 3.5-5.3 mmol/L Chloride 100 97-108 mmol/L CO2 28 22-32 mmol/L Glucose 109 65-99 mg/dL BUN 6 8-23 mg/dL Creatinine 0.65 0.50-1.00 mg/dL Calcium 9.2 8.6-10.4 mg/dL eGFR by Creatinine 92 >59 mL/min/1.73m2 Medications Medication SIG (Take, Route, Frequency, Duration) [...] tab(s) sublingua lly once a day Active Myrbetriq 25 MG 1 tablet Orally Once a day; Duration: 30 days 11/04/2024 Active Cetirizine HCl 10 MG 1 tab(s) [...] to dissolve Orally Once a day Active Metoprolol Succinate ER 25 MG 1 tablet Orally Once a day; Duration: 90 days Active Lisinopril 5 MG 1 tablet Orally Once a day; Duration: 90 days Active Immunizations Vaccine Route Administration Date Status [...] W/U Status Risk Notes Problem Overactive bladder (523368780) Overactive bladder (N32.81) Active confirmed Problem Vitamin D deficiency (80934469) Vitamin D deficiency (E55.9) Active confirmed Problem Essential hypertension (29704640) Essential hypertension (I10) Active confirmed Problem Anxiety (43346969) Anxiety (F41.9) Active confi rmed Problem BMI 30+ - obesity (354000848) BMI 32.0-32.9,adult (Z68.32) Active confirmed Problem Thyroid nodule (701717429) Thyroid nodule (E04.1) Active confirmed Problem Gastroesophageal reflux disease without esophagitis (665803447) Gastroesophageal reflux disease without esophagitis (K21.9) Active confirmed Problem Atherosclerotic heart disease of [place] coronary artery without angina pectoris (180211773463126) Coronary artery disease involving [place] coronary artery of [place] heart without angina pectoris (I25.10) Active confirmed Problem Iron deficiency anemia (02871527) Iron deficiency anemia, unspecified iron deficiency anemia type (D50.9) Active confirmed Problem Hyperlipidaemia (68917666) Hyperlipidemia, unspecified hyperlipidemia type (E78.5) Active confirmed Problem Atopic dermatitis (48191920) Atopic dermatitis, unspecified type (L20.9) Active confirmed Problem Body mass index 30.00 to 34.99 (786908196227988) BMI 34.0-34.9,adult (Z68.34) Active confirmed Problem Seasonal allergic rhinitis (275168897) Seasonal allergic rhinitis, unspecified trigger (J30.2) Active confirmed Problem Allergic rhinitis (13573603) Allergic rhinitis, unspecified seasonality, unspecified trigger (J30.9) Active confirmed Problem Morbid obesity (567906349) Morbidly obese (E66.01) Active confirmed Problem Osteopenia of le ft hip (M85.852) Active confirmed Vital Signs Heart Rate 67 /min 11/02/2024 Blood pressure diastolic 70 mm Hg 11/02/2024 Height 64.50 in 11/02/2024 Blood pressure systolic 112 mm Hg 11/02/2024 Weight 170.4 lbs 11/02/2024 BMI 28.79 kg/m2 11/02/2024 Encounters Encounter Location Date Provider Diagnosis [facility] [address] [place] [id number] 07/28/2024 Antony [place] Encounter for postoperative wound check Z48.89 and Dark urine R82.998 [facility] [address] [facility] [address] [place], [place] [id number] 09/17/2024 Alida Rowland Nausea with vomiting , unspecified R11.2 ; Diarrhea, unspecified R19.7 ; Other constipation K59.09 ; BMI 29.0-29.9,adult Z68.29 ; Anxiety F41.9 ; Hyperlipidemia, unspecified hyperlipidemia type E78.5 and Essential hypertension I10 [facility] [address] [facility] [address] [place], [place] [id number] 09/29/2024 Antony [place] Easy bruising R23.3 ; Nausea and vomiting, unspecified vomiting type R11.2 and BMI 28.0-28.9,adult Z68.28 [facility] [place] [address] [facility] [address] [place], [place] [id number] 11/02/2024 Antony [place] Age-related cataract , unspecified age-related cataract type, unspecified laterality H25.9 ; Pre-op exam Z01.818 ; Essential hypertension I10 ; Coronary artery disease involving [place] coronary artery of [place] heart without angina pectoris I25.10 ; Hyperlipidemia, unspecified hyperlipidemia type E78.5 ; Overactive bladder N32.81 ; Allergic rhinitis, unspecified seasonality, unspecified trigger J30.9 ; Personal history of nicotine dependence Z87.891 ; Screening for lung cancer Z12.2 and BMI 28.0-28.9,adult Z68.28 [facility] [address] [facility] [address] [place], [place] [id number] 05/29/2024 Antony [place] Iron deficiency anem ia, unspecified iron deficiency anemia type D50.9 [facility] [address] [facility] [address] [place], [place] [id number] 09/23/2024 Alida Rowland [facility] [address] [facility] [address] [place], [place] [id number] 09/30/2024 Antony [place] [facility] [address] [facility] [address] [place], [place] [id number] 10/12/2024 Antony [place] Screening for osteoporosis Z13.820 and Screening for breast cancer Z12.39 [facility] [address] [place] [id number] 11/03/2024 Antony [place] [facility] [address] [place] [id number] 11/04/2024 Antonybee [place] Assessments Encounter Date Diagnosis (ICD Code) Assessment Notes Treatment Notes Treatment Clinical Notes Section Notes 05/29/2024 Iron deficiency anemia, unspecified iron deficiency [...] K59.09) 09/29/2024 BMI 28.0-28.9,adult (ICD-10 - Z68.28) 09/17/2024 BMI 29.0-29.9,adult (ICD-10 - Z68.29) 11/02/2024 Coronary artery disease involving [place] coronary artery of [place] heart without angina pectoris (ICD-10 - I25.10) 11/02/2024 Hyperlipidemia, unspecified hyperlipidemia type (ICD-10 - E78.5) 09/17/2024 Anxiety (ICD-10 - F41.9) 11/02/2024 Overactive bladder (ICD-10 - N32.81) 09/17/2024 Hyperlipidemia, unspecified hyperlipidemia type (ICD-10 - E78.5) 09/17/2024 Essential hypertension (ICD-10 - I10) 11/02/2024 Allergic rhinitis, unspecified seasonality, unspecified trigger (ICD-10 - J30.9) 11/02/2024 Personal history of nicotine dependence (ICD-10 - Z87.891) 11/02/2024 Screening for lung cancer (ICD-10 - Z12.2) 11/02/2024 BMI 28.0-28.9,adult (ICD-10 - Z68.28) 11/02/2024 Other SEE ATTACHED REPORTS. PATIENT IS OF ACCEPTABLE RISK FOR PROPOSED CATARACT SURGERY Plan Of Treatment Pending Test Test Name Order Date H-TSH 01/03/2024 H-CBC 01/03/2024 H-Lipid Panel 01/03/2024 H-T4 free 01/03/2024 Insurance Providers Payer Name Payer Address Payer Phone Subscriber Number Group Number Insured Name Patient Relationship to Insured Coverage Start Date Coverage End Date [employer] (MEDICARE) [address] [address] [place] [phone] [id number] Neha Middleton Self - patient is the insured MEDICAID [employer] [address] [place] [id number] Neha Middleton Self - patient is the [...]
--- OUTSIDE RECORDS SUMMARY | 2025-01-21 07:59 | XMS_ITS | Clinical Summary ---
Author Organization [facility] Address [address] [facility] [address] [place] [address] Phone Care Team Providers Care Security Incident Response Engineer Name Role Phone Amber ERIC, Amador Hanson [phone] Conditions or Problems Problem Name Problem Code Onset Date Status Entry Date Provider Comment Standard Description Annotate Chorioretinit is, bilateral 20602783 (SNOMED CT) 06/16 Active 06/16 Amador Clark MD Chorioretinitis Constipation 09614129 (SNOMED CT) 05/18 Active 05/24 Amador Clark MD Constipation Loss of vision 565665697 (SNOMED CT) 05/04 Active 05/05 Amador Clark MD Blindness AND/OR vision impairment level Disseminated chorioretinit is, bilateral 60985924 (SNOMED CT) Active Ragini Hannah 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 PYRIDOXINE HCL [id number] Amador Clark MD ISONIAZID 300 MG TABS Take one by mouth daily. ISONIAZID 28008175082 Amador Clark MD RIFAMPIN 300 MG CAPS Take two capsules (600mg) po daily. RIFAMPIN 44499015373 Amador Clark MD OMEPRAZOLE 40 MG CPDR Take 1 tablet by mouth daily OMEPRAZOLE 90877576206 Barb Petitey MYRBETRIQ 50 MG [id number] Take 1 tablet by mouth daily MIRABEGRON 07703052303 Barb Petitey METOPROLOL SUCCINATE ER 25 MG [id number] Take 1 tablet by mouth daily METOPROLOL SUCCINATE 92884203221 Barb Petitey LISINOPRIL 5 MG TABS Take 1 tablet by mouth daily LISINOPRIL 07952101429 Barb Petitey FUROSEMIDE 20 MG TABS Take 1 tablet by mouth daily FUROSEMIDE 51903622870 Barb Petitey CITALOPRAM HYDROBROMIDE 20 MG TABS Take 1 tablet by mouth daily CITALOPRAM HYDROBROMIDE 57940237726 Barb Petitey ATORVASTATIN CALCIUM 40 MG TABS Take 1 tablet by mouth daily ATORVASTATIN CALCIUM 48739614548 Barb Petitey Medications Administered No information available. [...] Entry Date CPT-[facility]oor[facility] Continue oral antibiotics 16/04/18 [id number] CBC with Differential 2018 CPT-03601 CMP CPT-[facility]oor[facility] Continue oral antibiotics 17/03/20 CPT-sl STAT Labs CPT-arturo New Oral Antibiotic CPT-sl STAT Labs [id number] CBC with Differential 2018 CPT-04910 CMP Vital Signs Date Name Value Unit [...]
--- OUTSIDE RECORDS SUMMARY | 2025-01-21 07:59 | XMS_ITS | Clinical Summary ---
Author Organization Healthcare Address [address] [place] [address] Care Team Providers Care Client Development Consultant Name Role Phone Antony Patino MD Primary Care Provider [phone] Family History Medical History Relation Name Comments [...] of Treatment Not on file Care Teams Client Development Consultant Relationship Specialty Start Date End Date Antony Patino MD [address] [place] [address] PCP - General 09/09/20
--- NOTE | 2025-01-21 08:00 | NM_ITS ---
APPROVED REPORT Exam: Nuclear Stress Test Indication: cad, h/o mi, 3 stents, htn, hyperlipidemia, fm hx, fatigue Patient Location: Outpatient Stress Tech: Tanesha Abernathy [place] Tech:JUAN Dudley RT(R)(N) Ht: 5 ft 5 in Wt: 150 lbs Bra Size: 34a HR: 68 bpm BP: 162/83 mmHg BSA: 1.75 m2 TID: 1.05 BMI: 24.9 History: cad, h/o mi, 3 stents, htn, hyperlipidemia, fm hx, fatigue patient could not lay on abdomen for prone images. Procedure: Patient received 0.4 mg of intravenous Lexiscan, resting heart rate 68 bpm, resting blood pressure 162/83 mmHg, with Lexiscan maximum heart rate achieved was 95 bpm which is % of the maximum predicted heart rate and blood pressure was 161/83 mmHg. With Lexiscan, patient denied any complaint of chest pain. Cardiac Stress and Resting SPECT Images: Cardiac Stress and Resting SPECT images were obtained using technetium 99m Myoview 32.5 mCi stress and 10.45 mCi at rest. The patient could not lie on her abdomen. Therefore, prone stress imaging could not be performed. This may affect diagnostic interpretation of the study findings. Resting stress imaging in supine positions demonstrate no evidence of fixed or reversible perfusion defects. Gated imaging demonstrates normal global LV systolic function. LVEF is calculated at 53%. Conclusion: No evidence of fixed or reversible perfusion defects. Gated imaging demonstrates normal global LV systolic function. LVEF is calculated at 53%. Of note, the right ventricle appears dilated. Correlation with new or recent TTE may be suggested. Electronically signed by : Carlotta Elena MD 01/21/2025 13:02:06
--- OUTSIDE RECORDS SUMMARY | 2025-01-21 08:00 | XMS_ITS | Clinical Summary ---
Author Organization [facility] Address [address] [place] [address] Care Team Providers Care Flight Operations Inspector Name Role Phone Antony Patino MD Primary Care Provider [phone] Allergies No known active allergies Medications atorvastatin [...] or training? Not on file Preferred Language Argentine 2024 Comments No Sex and Gender Information [...] 02/18/2017, 04/29 Medical Devices Implanted Type Area Urology Physician Device Identifier Shelf Expiration Date Model / Serial / Lot Clipapplr M/ Endo Ligaclip Rot 10mm /Lg - [id number] Implanted:Qty : 1 on 07/21/2024 by Shiva Hoyos MD at [facility] Implant N/A: Abdomen [employer] DIV OF J AND J ER320 / / Mesh Keyla Phasix St Rectg 3x4in Ca/1ea - [id number] Implanted:Qty : 1 on 07/21/2024 by Shiva Hoyos MD at [facility] Implant N/A: Esophagus DAVOL (DIV OF [employer]) 01/24/2027 [id number] / / [id number] Procedures Procedure Name Priority Date/Time Associated Diagnosis Comments SCANNED - COLONOSCOPY 10/14/2023 from Last 3 Months or Most Recently Relevant to Health Maintenance Results * Colonoscopy, Scan (10/14/2023) Antony Patino MD CHART REVIEW TABS Final R esult from Last 3 Months or Most Recently Relevant to Health Maintenance Insurance [place] [employer] MEDICARE ADVANTAGE [facility] HMO Advance Directives * CPR (Attempt to Resuscitate) (Latest Code Status on File) Date Activated Date Inactivated Comments 07/21/2024 6:33 PM 07/23/2024 2:01 PM Question Answer Comments Code Status (Patient has no pulse and is not breathing): CPR (Attempt to Resuscitate) Medical Interventions (Patie nt has pulse or is breathing): Full Support Level Of Support Discussed With: Patient Care Teams Flight Operations Inspector Relationship Specialty Start Date End Date Antony Patino MD [address] [facility] [address] [place] [id number] PCP - General Family Medicine 09/01/20
[2025-01-21 09:38] VITALS: BP 162/83; PULSE 68; RESP 14
[2025-01-21] MEDS: SODIUM CHLORIDE 0.9% 10ML SYR (RAD ONLY) 10 ML IV ×2 (10:44)
[2025-01-21] MEDS: ISOTOPE MYOVIEW (PER STUDY) 1 DOSE IV (10:44)
== END 2025-01-21 23:59 | disposition home or self-care (01) ==
LOC: RAD 07:57
PROVIDERS: PCP Family Medicine; Visit Provider Nurse Practitioner
DX: Z01.810 Encounter for preprocedural cardiovascular examination (principal); I11.9 Hypertensive heart disease without heart failure; I25.10 Atherosclerotic heart disease of native coronary artery without angina pectoris; E78.5 Hyperlipidemia, unspecified; Z95.5 Presence of coronary angioplasty implant and graft
CPT/HCPCS: 78452; 93017; 93018; A9502; J2785

== ENCOUNTER 2025-01-25 13:04 | Outpatient (CLI) | payer MEDICARE, MEDICAID, SELFPAY ==
--- OUTSIDE RECORDS SUMMARY | 2024-07-28 07:15 | XMS_ITS ---
Author Organization [facility] Address [address] [place] [id number] Care Team Providers Care Food Service Supervisor Name Role Phone Antony Patino Primary Care Provider Allergies No Known Allergies Results Component Value Reference Range Notes P-Basic Metabolic Panel (BMP ) Reviewed date:07/29/2024 09:28:08 AM Interpretation:satisfactory Performing Lab: Notes/Report: Test performed by [facility] [address] [place] [address] , [address], [place] [address] Baldo Ortega MD, Credit Support Specialist CLIA: [id number] Sodium 141 135-145 mmol/L Potassium 4.0 3.5-5.3 mmol/L Chloride 100 97-108 mmol/L CO2 28 22-32 mmol/L Glucose 109 65-99 mg/dL BUN 6 8-23 mg/dL Creatinine 0.65 0.50-1.00 mg/dL Calcium 9.2 8.6-10.4 mg/dL eGFR by Creatinine 92 >59 mL/min/1.73m2 REASON FOR VISIT surgery f/u Medications Medication SIG (Take, Route, Frequency, Duration) Notes Start Date End Date Status Lisinopril 5 MG 1 tab(s) orally once daily; Duration: 90 days Active Metoprolol Succinate ER 25 MG TAKE 1 TABLET EVERY DAY; Duration: 90 days Active Ferrous Sulfate 325 (65 Fe) MG 1 tab(s) orally once a day; Duration: 90 days Active PARoxetine HCl 20 MG 1 tab(s) orally onc e a day; Duration: 90 days Active Omeprazole 40 MG 1 cap(s) Orally once daily; Duration: 90 days Active oxyBUTYnin Chloride ER 10 MG 1 tablet Orally Once a day; Duration: 30 day(s) Active Triamcinolone Acetonide 0.1 % APPLY TOPICALLY THREE TIMES DAILY; Duration: 60 Active Famotidine 20 MG 1 tab(s) orally as needed Active Cetirizine HCl 10 MG 1 tab(s) orally onc e a day; Duration: 90 days Active Fluticasone Propionate 50 MCG/ACT 1 spray in each nostril in each nostril once a day 03/15/2021 Active Multivitamin - 1 tab(s) orally once a day Active Isosorbide Dinitrate 30 MG 1 tablet Oral ly once daily Active Clopidogrel Bisulfate 75 MG 1 tablet Ora lly Once a day; Duration: 30 day(s) Active Atorvastatin Calcium 80 MG 1 tablet Oral ly Once a day; Duration: 30 day(s) Active Vitamin B-12 1000 MCG 1 tab(s) sublingua lly once a day Active HYDROcodone-Acetaminophen 7.5-325 MG 1 tablet as needed Orally every 6 hrs Active Ondansetron 4 MG 1 tablet on the tong ue and allow to dissolve Orally Once a day Active Vital Signs Weight 196.4 lbs 07/28/2024 Blood pressure systolic 132 mm Hg 07/29/19 25 Blood pressure diastolic 78 mm Hg 025 Heart Rate 104 /min 07/28/2024 Height 64.50 in 07/28/2024 BMI 33.19 kg/m2 07/28/2024 Encounters Encounter Location Date Provider Diagnosis [facility] [address], [place] [id number] 07/28/2024 Antony Patino Encounter for postoperative wound check Z48.89 and Dark urine R82.998 Assessments Encounter Date Diagnosis (ICD Code) Assessment Notes Treatment Notes Treatment Clinical Notes Section Notes 07/28/2024 Encounter for postoperative wound check (ICD-10 - Z48.89) Continue routine post op care 07/28/2024 Dark urine (ICD-10 - R82.998) Plan Of Treatment Treatment Notes Assessment Notes Encounter for postoperative wound check Continue routine post op care Next Appt Details Follow Up: via phone to repo rt test results, Reason: Progress Notes * Neha SANCHEZOB:0 1950 (74 yo F)Acc No.[id number]:07/28/2024 Progress Notes Patient: Neha TENORIO Provider: Babatunde Patino M.D. :1950 A ge:74 Y S ex:Female Date:07/28/2024 Address:[address] [place] [address] , [facility], [facility] Subjective: * Chief Complaints: * 1 . Surgery f/u. * HPI: H PI: 74 year old female presents with c/o Here for follow up on:?07/21/2024 Laparoscopic Paraesophageal hernia repair with mesh. Pt states she feels really weak due to being on liquid diet and will be on it for another week. Pt states she is still having a lot of pain around incision and drain site as well. Pt states she has not been able to medications due to them needing to be crushed for her to take. Pt states she is feeling overwhelmed right now and states that it's a lot to handle . * ROS: D ERMATOLOGY: no R fiordaliza. n o H papi. G ASTROENTEROLOGY: no N ausea. n o V omiting. U ROLOGY: no D ifficulty urinating. n o B lood in urine. 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 * Surgical History: D &C x 5 , Hysterectomy Partial , Left foot surgery after fracture , Trigger finger left hand - surgery , Cardiac stents x 3 , Neck Surgery x 2 , T& A removed , Laparoscopic Paraesophageal Hernia Repair with Mesh 07/21/2024. * Hospitalization/Major Diagno stic Procedure: D enies Past Hospitalization. * Family History: F ather: , diagnosed with Diabetes, Heart Disease, Stroke. M other: , family history unknown . P aternal Grand Father: . P aternal Grand Mother: . Maternal Grand Father: . M aternal Grand Mother: . C scott: RA, diagnosed with Diabetes, Mental Illness. S iblings: diagnosed with Heart Disease. 1 brother(s) , 3 sister(s) . 1 son(s) , 2 daughter(s) . . * Social History: C URRENT TOBACCO USE: No S moking Status: Patient does NOT smoke, Former Smoker: Yes, Quit smokin, Smoking pack year history: 80. C affeine: yes. Exercise: no. Home smoke detector use: no. Marital Status: Single. New since last visit: none. Past smoking status: no, Quit 2005, started smoking at age 13, 42 year smoker. Recreational drug use: no. Alcohol: Yes, occasional. * Medications: T aking Ondansetron 4 MG Tablet Disintegrating 1 tablet on the tongue and allow to dissolve Orally Once a day , Taking HYDROcodone-Acetaminophen 7.5-325 MG Tablet 1 tablet as needed Orally every 6 hrs , Taking Atorvastatin Calcium 80 MG Tablet 1 tablet Orally Once a day , Taking Clopidogrel Bisulfate 75 MG Tablet 1 tablet Orally Once a day , Taking Isosorbide Dinitrate 30 MG Tablet 1 tablet Orally once daily , Taking Multivitamin - Tablet 1 tab(s) orally once a day , Taking Vitamin B-12 1000 MCG Tablet 1 tab(s) sublingually once a day , Taking Famotidine 20 MG Tablet 1 tab(s) orally as needed , Taking Triamcinolone Acetonide 0.1 % Cream APPLY TOPICALLY THREE TIMES DAILY , Taking Fluticasone Propionate 50 MCG/ACT Suspension 1 spray in each nostril in each nostril once a day , Taking Cetirizine HCl 10 MG Tablet 1 tab(s) orally once a day , Taking oxyBUTYnin Chloride ER 10 MG Tablet Extended Release 24 Hour 1 tablet Orally Once a day , Taking Ferrous Sulfate 325 (65 Fe) MG Tablet 1 tab(s) orally once a day , Taking Omeprazole 40 MG Capsule Delayed Release 1 cap(s) Orally once daily , Taking PARoxetine HCl 20 MG Tablet 1 tab(s) orally once a day , Taking Metoprolol Succinate ER 25 MG Tablet Extended Release 24 Hour TAKE 1 TABLET EVERY DAY , Taking Lisinopril 5 MG Tablet 1 tab(s) orally once daily , Medication List reviewed and reconciled with the patient * Allergies: N .K.D.A. Objective: * Vitals: W t: 196.4, Temp: 97.9, BP: 132/78, HR: 104, Nurse: telma, Ht: 64.50, BMI:33.19. * Examination: G eneral Examination: General Appearance: N AD. H eart: R SR. L ungs:?clear to auscultation. A bdomen: s urgical wounds healing well, drain in place. ? Assessment: * Assessment: 1. E ncounter for postoperative wound check - Z48.89 (Primary) 2 . D ark urine - R82.998 Plan: * Treatment: 2. D ark urine L AB: P-Basic Metabolic Panel (BMP) (Collection Date & Time - 07/28/2024 10:36 AM) s atisfactory Value Reference Range B UN 6 L 8-23 - mg/dL * C alcium 9.2 8.6-10.4 - mg/dL * C hloride 100 97-108 - mmol/L * C O2 28 22-32 - mmol/L * C reatinine 0.65 0.50-1.00 - mg/dL * G lucose 109 H 65-99 - mg/dL * P otassium 4.0 3.5-5.3 - mmol/L * S odium 141 135-145 - mmol/L * e GFR by Creatinine 92 >59 - mL/min/1.73m2 * Yen Valdes 07/29/2024 9:27:25 AM > Pt informed * Procedure Codes: G 2211 Complex e/m visit add on, 3075F SYST BP GE 130 - 139MM HG, 3078F DIAST BP < 80 MM HG * Follow Up: v ia phone to report test results * Images: Billing Information: * Visit Code: 22682 Office Visit, Est Pt., Level 3. * Procedure Codes: G2211 Complex e/m visit add on. 3075F SYST BP GE 130 - 139MM HG. 3078F DIAST BP < 80 MM HG. * Electronic signature of Karen Patino MD on 01/25/2025 at 01:06 PM EDT Sign off status: Pending * Provider: Babatunde Patino M.D. Date: 0 07/28/2024 Generated for Printi ng/Faconsatntinog/eTransmitting on: 0 01/25/2025 01:06 PM EDT History and Physical Notes * HPI (History of Present Illness) Category Sub-Category Detail Notes Category Not es HPI Here for follow up on: 5 Laparoscopic Paraesophageal hernia repair with mesh. Pt states she feels really weak due to being on liquid diet and will be on it for another week. Pt states she is still having a lot of pain around incision and drain site as well. Pt states she has not been able to medications due to them needing to be crushed for her to take. Pt states she is feeling overwhelmed right now and states that it's a lot to handle Examination Category Sub-Category Detail Notes Category Not es General Examination Heart: RSR Lungs: clear to auscultatio n Abdomen: surgical wounds heal ing well, drain in place General Appearance: NAD
--- OUTSIDE RECORDS SUMMARY | 2024-09-17 09:45 | XMS_ITS ---
Author Organization [facility] Address [address] [place] [id number] Care Team Providers Care Solder Leveler Printed Circuit Boards Name Role Phone Antony Patino Primary Care Provider [phone] Alida Rowland Unavailable [phone] Allergies No Known Allergies Results Component Value [...] 5.9 Performing Lab: Notes/Report: Test performed by [facility] [address] [place] [address] , [address], [place] [address] Baldo Ortega MD, Senior Svp CLIA: [id number] Sodium 142 135-145 mmol/L Potassium 3.5 3.5-5.3 [...] Interpretation:Normal Performing Lab: Notes/Report: Test performed by [facility], [address] , [address], [place] [address] Baldo Ortega MD, Senior Svp CLIA: [id number] Magnesium 1.8 1.6-2.4 mg/dL Reason For Referral Diagnosis 1 Nausea with vomiting , unspecified (R11.2) Referral Organization [facility] Referring Provider First Name Alida Referring Provider Last Name Kashif Referring Provider Speciality Physician Full Time Babysitter Referred Provider Gastroenterology, . Referred Provider Specialty [...] Orally every 6 hrs Not-Taking Vital Signs Weight 174.4 lbs 09/17/2024 Blood pressure systolic 120 mm Hg 09/18/19 25 Blood pressure diastolic 78 mm Hg 025 Heart Rate 68 /min 09/17/2024 Height 64.50 in 09/17/2024 BMI 29.47 kg/m2 09/17/2024 Encounters Encounter Location Date Provider Diagnosis [facility] [address] [phone] 09/17/2024 Alida Rowland Nausea with vomiting , [...] * Neha SANCHEZEDOB:0 1950 (74 yo F)Acc No.[id number]:09/17/2024 Progress Notes Patient: Neha TENORIO Provider: JOSE CARLOS Arias :1950 A ge:74 Y S ex:Female Date:09/17/2024 Address:[address] [place] [address] , [address] Pcp:Antony Patino Subjective: * Chief Complaints: * [...] ther constipation - K59.09 4 . B [place] 29.0-29.9,adult - Z68.29 5 . A nxiety [...] G 2211 Complex e/[place], [address] CBC WITH AUTO DIFF, 3074F SYST BP [...] * Images: Billing Information: * Visit Code: 07256 Office Visit, Est Pt., Level 4. * Procedure Codes: G2211 Complex e/[place]. [address] CBC WITH AUTO DIFF. 3074F SYST BP LT 130 MM HG. 3078F DIAST BP < 80 MM HG. G8420 BMI<30 AND >=22 CALC & DOCU. G8950 PREHTN/HTN BP DOC INDCD F/U DOC. G8752 MOST RECENT SYSTOLIC BP < 140MM HG. G8754 MOST RECENT DIASTOLIC BP < 90MM HG. * Electronic signature of JOSE CARLOS Laureano on 01/25/2025 at 01:07 PM EDT Sign off status: Pending * Provider: JOSE CARLOS Arias Date: 0 09/17/2024 Generated for Brandon hernandez/Raina/eTransmitting on: 0 01/25/2025 01:07 PM EDT History and Physical Notes * [...]
--- OUTSIDE RECORDS SUMMARY | 2024-09-29 07:30 | XMS_ITS ---
Author Organization [facility] Address [address] [place] [id number] Care Team Providers Care Steel Shot Header Operator Name Role Phone Antony Patino Primary [...] Interpretation:25 Performing Lab: Notes/Report: Test performed by [facility] [address] [place], [place] [address] [place] , [address], [place] [address] Baldo Ortega MD, Waterproof Coating Machine Tender CLIA: [id number] Amylase 25 28-100 U/L P-Comprehensive Metabolic Pa jodi (CMP) Reviewed date:09/30/2024 01:46:16 PM Interpretation:Na 146, glu 137, BUN 7 Performing Lab: Notes/Report: Test performed by [facility] [address] [place], [place] [address] [place] , [address], [place] [address] Baldo Ortega MD, Waterproof Coating Machine Tender CLIA: [id number] Sodium 146 135-145 mmol/L Potassium 3.6 3.5-5.3 [...] Interpretation:Normal Performing Lab: Notes/Report: Test performed by [facility] [address] [place] [address] , [address] [place] [id number] Baldo Ortega MD, Waterproof Coating Machine Tender CLIA: [id number] Lipase 14.5 13.0-60.0 u/L P-Prothrombin Time (PT) Reviewed date:09/30/2024 01:46:16 PM Interpretation:Normal Performing Lab: Notes/Report: Test performed by [facility] [address] [place] [address] , [place] [address] Baldo Ortega MD, Waterproof Coating Machine Tender CLIA: [id number] PT 10.9 9.5-12.2 sec INR 1.0 0.9-1.2 [...] Interpretation:Normal Performing Lab: Notes/Report: Test performed by [facility], [address] , [address], [place] [address] Baldo Ortega MD, Waterproof Coating Machine Tender CLIA: [id number] Partial Thromboplastin Time (PTT) 27.0 23.9-33.0 sec [address] [place] [id number] 09/29/2024 Antony Patino Easy bruising R23.3 ; [...] * Neha SANCHEZJASONOB:0 1950 (74 yo F)Acc No.[id number]:09/29/2024 Progress Notes Patient: Neha TENORIO Provider: Babatunde Patino M.D. :1950 A ge:74 Y S ex:Female Date:09/29/2024 Address:[address] [place] [address] , [address], [place] Subjective: * Chief Complaints: * 1 . [...] vomiting type - R11.2 3 . B NC 28.0-28.9,adult - Z68.28 Plan: * Treatment: Value [...] 25 L 28-100 - U/L * Liliya Mroin 09/30/2024 01:4 6:01 PM EDT > See [...] G 2211 Complex e/[place], [address] CBC WITH AUTO DIFF, 1036F TOBACCO NON-USER, G8420 BMI<30 AND >=22 CALC & DOCU, G8783 BP SCR PRFRM RCMDD DEFIND SCR INTVL, G8752 MOST RECENT SYSTOLIC BP < 140MM HG, G8754 MOST RECENT DIASTOLIC BP < 90MM HG * Follow Up: v ia phone to report progress * Images: Billing Information: * Visit Code: 17146 Office Visit, Est Pt., Level 4. * Procedure Codes: G2211 Complex e/[place]. [address] CBC WITH AUTO DIFF. 1036F TOBACCO NON-USER. [...] 09/29/2024 Generated for Brandon hernandez/Raina/eTransmitting on: 0 01/25/2025 01:06 PM EDT History [...]
--- OUTSIDE RECORDS SUMMARY | 2024-11-02 06:15 | XMS_ITS ---
Author Organization [facility] Address [address] [place] [id number] Care Team Providers Care Water Control Station Engineer Name Role Phone Antony Patino Primary Care Provider Allergies No Known Allergies Results Component Value Reference Range Notes H-CBC Reviewed date:11/16/2024 05:04:40 PM Interpretation:rbc 4.17, mpv 11.0 Performing Lab: Notes/Report: WBC 9.3 4.8-10.8 K/mm3 RBC 4.17 4.20-5.40 M/mm3 HGB 12.3 12.2-16.2 g/dL HCT 38.1 37.0-47.0 % MCV 91.4 81-99 fl MCH 29.5 27.0-31.2 pg MCHC 32.3 31.8-35.4 g/dL RDW-SD 46.3 RDW 13.8 11.5-17.5 % PLT 232 142-424 K/mm3 MPV 11.0 7.4-10.4 fl NE% 68.7 37.0-80.0 % LY% 22.0 10-50 % MO% 5.9 1.7-9.3 % EO% 2.7 0.1-12.0 % BA% 0.5 0.1-2.0 % NRBC% 0 IG% 0.2 NE# 6.4 1.8-7.8 K/mm3 LY# 2.1 0.7-4.5 K/mm3 MO# 0.6 0.1-1.0 K/mm3 EO# 0.3 0.0-0.4 Kmm3 BA# 0.1 0-0.2 K/mm3 NRBC# 0 IG# 0.02 H-CMP Reviewed date:11/16/2024 05:04:40 PM Interpretation:glu 113, total protein 6.0, co2 32 Performing Lab: Notes/Report: NA 139 136-145 mmol/L K 4.0 3.5-5.1 mmoL/L CL 98 98-107 mmol/L CO2 32 22.0-30.0 mmol/L GAP 13.0 5-15 mEq/L BUN 8 7-17 mg/dl CREATT 0.60 0.52-1.04 mg/dl GFRAA 118 >60 ML/MIN EGFR 97 >60 ml/min GLU 113 74-100 mg/dl CA 9.0 8.4-10.2 mg/dl BILIT 0.5 0.2-1.3 mg/dl AST 23 14-36 U/L ALT 15 12-78 U/L TP 6.0 6.3-8.2 g/dl ALB 3.8 3.5-5.0 g/dl GLOB 2.2 1.3-3.2 g/dL AGRATIO 1.7 1.1-1.8 ALP 89 38-126 U/L EKG Reviewed date:11/03/2024 11:02:49 AM Interpretation: Performing Lab: Notes/Report: EKG Reviewed date:11/03/2024 11:02:49 AM Interpretation: Performing Lab: Notes/Report: REASON FOR VISIT pre op physical Medications Medication SIG (Take, Route, Frequency, Duration) Notes Start Date End Date Status Aspirin 81 81 MG 1 tablet Orally Once a day; Duration: 30 day(s) 10/05/2024 Active Metoprolol Succinate ER 25 MG TAKE 1 TABLET EVERY DAY; Duration: 90 Active Lisinopril 5 MG TAKE 1 TABLET EVERY DAY; Duration: 90 Active oxyBUTYnin Chloride ER 10 mg TAKE ONE TABLET BY MOUTH ONCE A DAY; Duration: 30 Active Cetirizine HCl 10 MG 1 tab(s) orally onc e a day; Duration: 90 days Active PARoxetine HCl 20 MG TAKE 1 TABLET EVERY DAY; Duration: 90 Active Fluticasone Propionate 50 MCG/ACT 1 spray in each nostril in each nostril once a day 03/15/2021 Active Triamcinolone Acetonide 0.1 % APPLY TOPICALLY THREE TIMES DAILY; Duration: 60 Active Vitamin B-12 1000 MCG 1 tab(s) sublingua lly once a day Active Multivitamin - 1 tab(s) orally once a day Active Isosorbide Dinitrate 30 MG 1 tablet Oral ly once daily Active Atorvastatin Calcium 80 MG 1 tablet Oral ly Once a day; Duration: 30 day(s) Active Ondansetron 4 MG 1 tablet on the tong ue and allow to dissolve Orally Once a day Active Vital Signs Weight 170.4 lbs 11/02/2024 Blood pressure systolic 112 mm Hg 11/03/19 25 Blood pressure diastolic 70 mm Hg 025 Heart Rate 67 /min 11/02/2024 Height 64.50 in 11/02/2024 BMI 28.79 kg/m2 11/02/2024 Encounters Encounter Location Date Provider Diagnosis [facility] [address], [place] [id number] 11/02/2024 Antony Patino Age-related cataract , unspecified age-related cataract type, unspecified laterality H25.9 ; Pre-op exam Z01.818 ; Essential hypertension I10 ; Coronary artery disease involving samish coronary artery of samish heart without angina pectoris I25.10 ; Hyperlipidemia, unspecified hyperlipidemia type E78.5 ; Overactive bladder N32.81 ; Allergic rhinitis, unspecified seasonality, unspecified trigger J30.9 ; Personal history of nicotine dependence Z87.891 ; Screening for lung cancer Z12.2 and BMI 28.0-28.9,adult Z68.28 Assessments Encounter Date Diagnosis (ICD Code) Assessment Notes Treatment Notes Treatment Clinical Notes Section Notes 11/02/2024 Age-related cataract, unspecified age-related cataract type, unspecified laterality (ICD-10 - H25.9) 11/02/2024 Pre-op exam (ICD-10 - Z01.818) 11/02/2024 Essential hypertension (ICD-10 - I10) 11/02/2024 Coronary artery disease involving samish coronary artery of samish heart without angina pectoris (ICD-10 - I25.10) 11/02/2024 Hyperlipidemia, unspecified hyperlipidemia type (ICD-10 - E78.5) 11/02/2024 Overactive bladder (ICD-10 - N32.81) 11/02/2024 Allergic rhinitis, unspecified seasonality, unspecified trigger (ICD-10 - J30.9) 11/02/2024 Personal history of nicotine dependence (ICD-10 - Z87.891) 11/02/2024 Screening for lung cancer (ICD-10 - Z12.2) 11/02/2024 BMI 28.0-28.9,adult (ICD-10 - Z68.28) 11/02/2024 Other SEE ATTACHED REPORTS. PATIENT IS OF ACCEPTABLE RISK FOR PROPOSED CATARACT SURGERY Plan Of Treatment Treatment Notes Assessment Notes Other SEE ATTACHED REPORTS . PATIENT IS OF ACCEPTABLE RISK FOR PROPOSED CATARACT SURGERY Next Appt Details Follow Up: via phone to repo rt test results, Reason: Progress Notes * Neha SANCHEZEDOB:0 1950 (74 yo F)Acc No.[id number]:11/02/2024 Physical Patient: Neha TENORIO Provider: Babatunde Patino M.D. :1950 A ge:74 Y S ex:Female Date:11/02/2024 Address:[address] [place], [place] [id number] Subjective: * Chief Complaints: * 1 . Pre op physical. * HPI: A dult Pre-Op physical: 74 year old female presents with c/o Procedure: C ataract surgery. c/o Date of Procedure: 0 11/13/2024. c/o [facility] * ROS: D ERMATOLOGY: no R fiordaliza. [...] History: F ather: , diagnosed with Diabetes, Stroke, Heart Disease. M other: , family history unknown . P aternal Grand Father: . P aternal Grand Mother: . Maternal Grand Father: . M aternal Grand Mother: . C hildrcyril: RA, diagnosed with Diabetes, Mental Illness. S [...] tab(s) sublingually once a day , Taking Triamcinolone Acetonide 0.1 % Cream APPLY TOPICALLY THREE TIMES DAILY , Taking Fluticasone Propionate 50 MCG/ACT Suspension 1 spray in each nostril in each nostril once a day , Taking Cetirizine HCl 10 MG Tablet 1 tab(s) orally once a day , Taking oxyBUTYnin Chloride ER 10 mg Tablet Extended Release 24 Hour TAKE ONE TABLET BY MOUTH ONCE A DAY , Taking PARoxetine HCl 20 MG Tablet TAKE 1 TABLET EVERY DAY , Taking Lisinopril 5 MG Tablet TAKE 1 TABLET EVERY DAY , Taking Metoprolol Succinate ER 25 MG Tablet Extended Release 24 Hour TAKE 1 TABLET EVERY DAY , Taking Aspirin 81 81 MG Tablet Delayed Release 1 tablet Orally Once a day , Discontinued Famotidine 20 MG Tablet 1 tab(s) orally as needed , Discontinued Omeprazole 40 MG Capsule Delayed Release TAKE 1 CAPSULE ONE TIME DAILY , Discontinued FeroSul 325 (65 Fe) MG Tablet TAKE 1 TABLET EVERY DAY , Discontinued Ondansetron 4 MG Tablet Disintegrating 1 tablet on the tongue and allow to dissolve Orally Three times a day, prn , Discontinued Promethazine HCl 12.5 MG Tablet 1 tablet as needed Orally every 6 hrs , Medication List reviewed and reconciled with the patient * Allergies: N .K.D.A. Objective: * Vitals: W t: 170.4, Temp: 97.9, BP: 112/70, HR: 67, Nurse: telma, Ht: 64.50, BMI:28.79. * Examination: G eneral Examination: General Appearance: N AD. O ral cavity: n o lesions, mucosa moist and WNL, no erythema. N janina: s upple, no lymphadenopathy. H eart: R SR. L ungs: c lear to auscultation. S kin: n ormal, no rash. P eripheral pulses: normal (2+) bilaterally. E xtremities: n o leg edema. Assessment: * Assessment: 1. P re-op exam - Z01.818 (Primary) 2 . A ge-related cataract, unspecified age-related cataract type, unspecified laterality - H25.9 3 . E ssential hypertension - I10 4 . C oronary artery disease involving samish coronary artery of samish heart without angina pectoris - I25.10 5 . H yperlipidemia, unspecified hyperlipidemia type - E78.5 6 . O veractive bladder - N32.81 7 .?Allergic rhinitis, unspecified seasonality, unspecified trigger - J30.9 8 . P ersonal history of nicotine dependence - Z87.891 9 . S creening for lung cancer - Z12.2 1 0. B [place] 28.0-28.9,adult - Z68.28 Plan: * Treatment: Value Reference Range W BC 9.3 4.8-10.8 - K/mm3 * R BC 4.17 L 4.20-5.40 - M/mm3 * H GB 12.3 12.2-16.2 - g/dL * H CT 38.1 37.0-47.0 - % * M CV 91.4 81-99 - fl * M CH 29.5 27.0-31.2 - pg * M CHC 32.3 31.8-35.4 - g/dL * R DW 13.8 11.5-17.5 - % * P LT 232 142-424 - K/mm3 * M PV 11.0 H 7.4-10.4 - fl * N E% 68.7 37.0-80.0 - % * L Y% 22.0 10-50 - % * M O% 5.9 1.7-9.3 - % * E O% 2.7 0.1-12.0 - % * B A% 0.5 0.1-2.0 - % * N E# 6.4 1.8-7.8 - K/mm3 * L Y# 2.1 0.7-4.5 - K/mm3 * M O# 0.6 0.1-1.0 - K/mm3 * E O# 0.3 0.0-0.4 - Kmm3 * B A# 0.1 0-0.2 - K/mm3 * R DW-SD 46.3 - fL * N RBC% 0 - % * N RBC# 0 - 10 3/uL * I G% 0.2 - % * I G# 0.02 - 10 3uL * Liliya Morin 11/03/2024 11:0 2:38 AM EDT > See phone encounter Liliya Morin 11/16/2024 05:04:35 PM EDT > ?LAB: H-CMP (Collection Date & Time - 11/02/2024 11:26 AM)?glu 113, total protein 6.0, co2 32* Value Reference Range N A 139 136-145 - mmol/L * K 4.0 3.5-5.1 - mmoL/L * C L 98 98-107 - mmol/L * C O2 32 H 22.0-30.0 - mmol/L * G AP 13.0 5-15 - mEq/L * B UN 8 7-17 - mg/dl * C REATT 0.60 0.52-1.04 - mg/dl * G FRAA 118 >60 - ML/MIN * E GFR 97 >60 - ml/min * G RAJAN 113 H 74-100 - mg/dl * C A 9.0 8.4-10.2 - mg/dl * B ILIT 0.5 0.2-1.3 - mg/dl * A ST 23 14-36 - U/L * A LT 15 12-78 - U/L * T P 6.0 L 6.3-8.2 - g/dl * A LB 3.8 3.5-5.0 - g/dl * G LOB 2.2 1.3-3.2 - g/dL * A GRATIO 1.7 1.1-1.8 - * A LP 89 38-126 - U/L * Liliya Morin 11/03/2024 11:0 2:38 AM EDT > See phone encounter Liliya Morin 11/16/2024 05:04:35 PM EDT > ?Imaging: EKG (Performed Date - 11/03/2024)* Liliya Morin 11/03/2024 11:0 2:38 AM EDT > See phone encounter 2.?Others? Notes: SEE ATTACHED REPORTS. PATIENT IS OF ACCEPTABLE RISK FOR PROPOSED CATARACT SURGERY?? * Procedure Codes: G 2211 Complex e/m visit add on, 1036F TOBACCO NON-USER, G8420 BMI<30 AND >=22 CALC & DOCU, G8783 BP SCR PRFRM RCMDD DEFIND SCR INTVL, G8752 MOST RECENT SYSTOLIC BP < 140MM HG, G8754 MOST RECENT DIASTOLIC BP < 90MM HG * Follow Up: v ia phone to report test results * Images: Billing Information: * Visit Code: 34839 Office Visit, Est Pt., Level 4. * Procedure Codes: G2211 Complex e/m visit add on. 1036F TOBACCO NON-USER. G8420 BMI<30 AND >=22 CALC & DOCU. G8783 BP SCR PRFRM RCMDD DEFIND SCR INTVL. G8752 MOST RECENT SYSTOLIC BP < 140MM HG. G8754 MOST RECENT DIASTOLIC BP < 90MM HG. * Electronic signature of Karen Patino MD on 01/25/2025 at 01:07 PM EDT Sign off status: Pending * Provider: Babatunde Patino M.D. Date: 0 11/02/2024 Generated for Brandon hernandez/Raina/eTransmitting on: 0 01/25/2025 01:07 PM EDT History and Physical Notes * HPI (History of Present Illness) Category Sub-Category Detail Notes Category Not es Adult Pre-Op physical Procedure: Cataract surgery Date of Procedure: 11/13/2024 Name of Surgeon: Dr. Don Gil, [facility] Examination Category Sub-Category Detail Notes Category Not es General Examination Heart: RSR Lungs: clear to auscultatio n Extremities: no leg edema General Appearance: NAD Skin: normal, no rash Neck: supple, no lymphaden opathy Oral cavity: no lesions, mucosa m oist and WNL, no erythema Peripheral pulses: normal (2+) bilatera lly
--- NOTE | 2025-01-25 13:00 | CA_ITS ---
APPROVED REPORT EXAM: Comprehensive 2D, Doppler, and color-flow Echocardiogram Coil Winding Machines Set Up Mechanic: Allison Carmen CRT Ht: 5 ft 6 in Wt: 160lbs BSA: 1.82 BP: 128/77 mmHg Indications: Shortness of Breath, CAD, Hypertension/HDD 2D Dimensions LA Volume 37.90 mL LA Volume Index 20.40 mL/m2 (M/F) 16-34 M-Mode Dimensions RVDd 3.04 cm (0.9-2.6) LA Diam 4.12 cm (1.9-4.0) LVDd 4.60 cm (3.5-5.7) LVDs 2.62 cm (3.5-5.7) IVSd 1.06 cm (0.6-1.1) PWd 1.10 cm (0.6-1.1) EF (Teich) 74.20% FS 43.00% EDV (Teich) 97.30 mL TAPSE 2.17 (<1.7) ESV (Teich) 25.10 mL LV Diastology E Decel Time 150 (160-240 msec) E/A Ratio 0.70 MED A' 17.90 cm/s LAT A' 18.40 cm/s Aortic Valve AO Peak GR. 10.50 mmHg Mitral Valve MV E Max Dmitry. 67.0 (40-130 cm/s) MV A Velocity 97.0 (40-130 cm/s) E/A Ratio 0.70 MV PHT 44.0 ms Tricuspid Valve TR P. Velocity 326.00 cm/s RAP Estimate 10.00 mmHg RVSP 52.40 mmHg Left Ventricle The left ventricle is normal size. Left ventricular systolic function is normal. The left ventricular ejection fraction is within the normal range. There is increased left ventricular wall thickness. There is normal LV segmental wall motion. Transmitral Doppler flow pattern suggests impaired LV relaxation. LVEF is 55%. Right Ventricle The right ventricle is mildly dilated. The right ventricular systolic function is normal. Atria The left atrium is mildly dilated. The right atrium is mildly dilated. There is no color Doppler evidence of interatrial shunt. Aortic Valve The aortic valve is mildly thickened. There is no hemodynamically significant aortic valvular stenosis. Trace aortic regurgitation is present. Mitral Valve The mitral valve is normal in structure. No evidence of mitral valve stenosis. Mild mitral regurgitation is present. Tricuspid Valve The tricuspid valve leaflets are thin and pliable. Mild tricuspid regurgitation. RVSP is 40-45 mmHg. Pulmonic Valve The pulmonary valve is grossly normal in structure. Trace pulmonic valve regurgitation is present. Great Vessels The aortic root is normal in size. The ascending aorta is borderline dilated, measuring 3.7 cm in diameter. IVC is normal in size and collapses >50% with inspiration. Pericardium There is no pericardial effusion. Other Information Study Quality: Fair Conclusion Normal biventricular systolic function. Mild RV dilation. Biatrial dilation. Mild MR, mild TR. The ascending aorta is borderline dilated, measuring 3.7 cm in diameter. Electronically signed by : Carlotta Elena MD 01/27/2025 12:44:01
--- OUTSIDE RECORDS SUMMARY | 2025-01-25 13:06 | XMS_ITS | Clinical Summary ---
Author Organization [facility] Address [address] [facility] [address] [place] [address] Phone Care Team Providers Care Systems Software Engineer Name Role Phone Amber ERIC, Amador Hanson [phone] Conditions or Problems Problem Name Problem Code Onset Date Status Entry Date Provider Comment Standard Description Annotate Chorioretinit is, bilateral 64039370 (SNOMED CT) 06/16 Active 06/16 Amador Clark MD Chorioretinitis Constipation 56298269 (SNOMED CT) 05/18 Active 05/24 Amador Clark MD Constipation Loss of vision 838831177 (SNOMED CT) 05/04 Active 05/05 Amador Clark MD Blindness AND/OR vision impairment level Disseminated chorioretinit is, bilateral 73799188 (SNOMED CT) Active Ragini Hannah 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 PYRIDOXINE HCL 29781805145 Amador Clark MD ISONIAZID 300 MG TABS Take one by mouth daily. ISONIAZID 90433720854 Amador Clark MD RIFAMPIN 300 MG CAPS Take two capsules (600mg) po daily. RIFAMPIN 37895447238 Amador Clark MD OMEPRAZOLE 40 MG CPDR Take 1 tablet by mouth daily OMEPRAZOLE 12849091359 Barb Petitey MYRBETRIQ 50 MG [id number] Take 1 tablet by mouth daily MIRABEGRON 42689094863 Barb Petitey METOPROLOL SUCCINATE ER 25 MG [id number] Take 1 tablet by mouth daily METOPROLOL SUCCINATE 18216829454 Barb Petitey LISINOPRIL 5 MG TABS Take 1 tablet by mouth daily LISINOPRIL 08025229222 Barb Petitey FUROSEMIDE 20 MG TABS Take 1 tablet by mouth daily FUROSEMIDE 47796093492 Barb Petitey CITALOPRAM HYDROBROMIDE 20 MG TABS Take 1 tablet by mouth daily CITALOPRAM HYDROBROMIDE 18232198432 Barb Petitey ATORVASTATIN CALCIUM 40 MG TABS Take 1 tablet by mouth daily ATORVASTATIN CALCIUM 89155512227 Barb Petitey Medications Administered No information available. [...] Entry Date CPT-Cooral Continue oral antibiotics 16/04/18 [id number] CBC with Differential 2018 CPT-26684 CMP CPT-Cooral Continue oral antibiotics 17/03/20 CPT-sl STAT Labs CPT-arturo New Oral Antibiotic CPT-sl STAT Labs [id number] CBC with Differential 2018 CPT-83935 CMP Vital Signs Date Name Value Unit [...]
--- OUTSIDE RECORDS SUMMARY | 2025-01-25 13:07 | XMS_ITS | Clinical Summary ---
Author Organization [facility] Address [address] [place] [address] Care Team Providers Care Captain Fishing Vessel Name Role Phone Antony Patino MD Primary Care Provider [phone] Allergies No known active allergies Medications atorvastatin [...] or training? Not on file Preferred Language Sudanese 2024 Comments No Sex and Gender Information [...] 02/18/2017, 04/29 Medical Devices Implanted Type Area Operations Lieutenant Device Identifier Shelf Expiration Date Model / Serial / Lot Clipapplr M/ Endo Ligaclip Rot 10mm /Lg - [id number] Implanted:Qty : 1 on 07/21/2024 by Shiva Hoyos MD at [facility] Implant N/A: Abdomen [employer] DIV OF J AND J ER320 / / Mesh Keyla Phasix St Rectg 3x4in Ca/1ea - [id number] Implanted:Qty : 1 on 07/21/2024 by Shiva Hoyos MD at [facility] Implant N/A: Esophagus DAVOL (DIV OF [employer]) 01/24/2027 [id number] / / [id number] Procedures Procedure Name Priority Date/Time Associated Diagnosis Comments SCANNED - COLONOSCOPY 10/14/2023 from Last 3 Months or Most Recently Relevant to Health Maintenance Results * Colonoscopy, Scan (10/14/2023) Antony Patino MD CHART REVIEW TABS Final R esult from Last 3 Months or Most Recently Relevant to Health Maintenance Insurance [place] MEDICA[place] QMB HUMANA MEDICARE ADVANTAGE [facility] HMO Advance Directives * CPR (Attempt to Resuscitate) (Latest Code Status on File) Date Activated Date Inactivated Comments 07/21/2024 6:33 PM 07/23/2024 2:01 PM Question Answer Comments Code Status (Patient has no pulse and is not breathing): CPR (Attempt to Resuscitate) Medical Interventions (Patie nt has pulse or is breathing): Full Support Level Of Support Discussed With: Patient Care Teams Captain Fishing Vessel Relationship Specialty Start Date End Date Antony Patino MD [address] [facility] [address] [place] [id number] PCP - General Family Medicine 09/01/20
--- OUTSIDE RECORDS SUMMARY | 2025-01-25 13:07 | XMS_ITS | Clinical Summary ---
Author Organization Healthcare Address [address] [place] [address] Care Team Providers Care Engineering Equipment Operator Name Role Phone Antony Patino MD Primary Care Provider + [phone] Family History Medical History Relation Name Comments [...] of Treatment Not on file Care Teams Engineering Equipment Operator Relationship Specialty Start Date End Date Antony Patino MD [address] [place] [address] PCP - General 09/09/20
--- OUTSIDE RECORDS SUMMARY | 2025-01-25 13:07 | XMS_ITS | Patient Health Record ---
Author Organization [facility] Address [address] [place] [id number] Care Team Providers Care Leadership Development Instructor Name Role Phone Sukumar Antony Primary Care Provider Alida Rowland Unavailable [phone] Allergies No Known Allergies Results Component Value Reference Range Notes Mammogram Reviewed date:11/02/2024 05:13:06 PM Interpretation:Negative Performing Lab: Notes/Report: Negative result negative Bone density Reviewed date:11/03/2024 11:02:49 AM Interpretation:osteopenia left hip, new diagnosis Performing Lab: Notes/Report: osteopenia left hip, new diagnosis Bone density osteopenia left hip EKG Reviewed date:11/03/2024 11:02:49 AM Interpretation: Performing Lab: Notes/Report: EKG Reviewed date:11/03/2024 11:02:49 AM Interpretation: Performing Lab: Notes/Report: H-CMP Reviewed date:11/16/2024 05:04:40 PM Interpretation:glu 113, [...] AGRATIO 1.7 1.1-1.8 ALP 89 38-126 U/L H-CBC Reviewed date:11/16/2024 05:04:40 PM Interpretation:rbc 4.17, [...] 0.1 0-0.2 K/mm3 NRBC# 0 IG# 0.02 P-Partial Thromboplastin Guille e (PTT) Reviewed date:09/30/2024 01:46:16 PM Interpretation:Normal Performing Lab: Notes/Report: Test performed by [employer] [address] [place] [address] , [address], [place] [address] Baldo Ortega MD, Motorcycle Engine Assembler CLIA: [id number] Partial Thromboplastin Time (PTT) 27.0 23.9-33.0 sec Heparin therapeutic range has not been validated for this assay. P-Prothrombin Time (PT) Reviewed date:09/30/2024 01:46:16 PM Interpretation:Normal Performing Lab: Notes/Report: Test performed by [email or web address] [address] [place] [address] , [address], [place] [address] Baldo Ortega MD, Motorcycle Engine Assembler CLIA: [id number] PT 10.9 9.5-12.2 sec INR 1.0 0.9-1.2 [...] Interpretation:Normal Performing Lab: Notes/Report: Test performed by [email or web address] [address] [place] [address] , [address], [place] [address] Baldo Ortega MD, Motorcycle Engine Assembler CLIA: [id number] Lipase 14.5 13.0-60.0 u/L P-Comprehensive Metabolic Pa jodi (CMP) Reviewed date:09/30/2024 01:46:16 PM Interpretation:Na 146, glu 137, BUN 7 Performing Lab: Notes/Report: Test performed by [email or web address] [address] [place] [address] , [address], [place] [address] Baldo Ortega MD, Motorcycle Engine Assembler CLIA: [id number] Sodium 146 135-145 mmol/L Potassium 3.6 3.5-5.3 [...] Interpretation:25 Performing Lab: Notes/Report: Test performed by [email or web address] [address] [place] [address] , [address], [place] [address] Baldo Ortega MD, Motorcycle Engine Assembler CLIA: [id number] Amylase 25 28-100 U/L CBC Venipuncture (in [...] - 38 platlet 231 100 - 400 P-Basic Metabolic Panel (BMP ) Reviewed date:07/29/2024 09:28:08 AM Interpretation:satisfactory Performing Lab: Notes/Report: Test performed by [email or web address] [address] [place] [address] , [address], [place] [address] Baldo Ortega MD, Motorcycle Engine Assembler CLIA: [id number] Sodium 141 135-145 mmol/L Potassium 4.0 3.5-5.3 mmol/L Chloride 100 97-108 mmol/L CO2 28 22-32 mmol/L Glucose 109 65-99 mg/dL BUN 6 8-23 mg/dL Creatinine 0.65 0.50-1.00 mg/dL Calcium 9.2 8.6-10.4 mg/dL eGFR by Creatinine 92 >59 mL/min/1.73m2 CBC Venipuncture (in house) Reviewed date:09/23/2024 03:32:45 [...] 5.9 Performing Lab: Notes/Report: Test performed by [email or web address] [address] [place] [address] , [address], [place] [address] Baldo Ortega MD, Motorcycle Engine Assembler CLIA: [id number] Sodium 142 135-145 mmol/L Potassium 3.5 3.5-5.3 [...] Interpretation:Normal Performing Lab: Notes/Report: Test performed by [email or web address] [address] [place] [address] , [address], [place] [address] Baldo Ortega MD, Motorcycle Engine Assembler CLIA: [id number] Magnesium 1.8 1.6-2.4 mg/dL Medications Medication SIG (Take, Route, Frequency, Duration) Notes Start Date End Date Status Fluticasone Propionate 50 MCG/ACT 1 spray in each nostril in each nostril once a day 03/15/2021 Active Myrbetriq 25 mg TAKE 1 TABLET BY REGINA TH ONCE A DAY; Duration: 30 Active Triamcinolone Acetonide 0.1 % APPLY TOPICALLY THREE TIMES DAILY; Duration: 60 Active Aspirin 81 81 MG 1 tablet Orally Once a day; Duration: 30 day(s) 10/05/2024 Active Vitamin B-12 1000 MCG 1 tab(s) sublingua lly once a day Active Cetirizine HCl 10 MG 1 tab(s) [...] W/U Status Risk Notes Problem Overactive bladder (271539702) Overactive bladder (N32.81) Active confirmed Problem Vitamin D deficiency (63778309) Vitamin D deficiency (E55.9) Active confirmed Problem Essential hypertension (52774215) Essential hypertension (I10) Active confirmed Problem Anxiety (57079232) Anxiety (F41.9) Active confi rmed Problem BMI 30+ - obesity (518261987) BMI 32.0-32.9,adult (Z68.32) Active confirmed Problem Thyroid nodule (622958744) Thyroid nodule (E04.1) Active confirmed Problem Gastroesophageal reflux disease without esophagitis (660992988) Gastroesophageal reflux disease without esophagitis (K21.9) Active confirmed Problem 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 (129967075147144) Coronary artery disease involving [place] coronary artery of [place] heart without angina pectoris (I25.10) Active confirmed Problem Iron deficiency anemia (18639303) Iron deficiency anemia, unspecified iron deficiency anemia type (D50.9) Active confirmed Problem Hyperlipidaemia (06265053) Hyperlipidemia, unspecified hyperlipidemia type (E78.5) Active confirmed Problem Atopic dermatitis (22671131) Atopic dermatitis, unspecified type (L20.9) Active confirmed Problem Body mass index 30.00 to 34.99 (425810498581134) BMI 34.0-34.9,adult (Z68.34) Active confirmed Problem Seasonal allergic rhinitis (864238251) Seasonal allergic rhinitis, unspecified trigger (J30.2) Active confirmed Problem Allergic rhinitis (37370401) Allergic rhinitis, unspecified seasonality, unspecified trigger (J30.9) Active confirmed Problem Morbid obesity (916911820) Morbidly obese (E66.01) Active confirmed Problem Osteopenia of le ft hip (M85.852) Active confirmed Vital Signs Heart Rate 67 /min 11/02/2024 Blood pressure diastolic 70 mm Hg 11/02/2024 Height 64.50 in 11/02/2024 Blood pressure systolic 112 mm Hg 11/02/2024 Weight 170.4 lbs 11/02/2024 BMI 28.79 kg/m2 11/02/2024 Encounters Encounter Location Date Provider Diagnosis [facility] [address] [place], [place] [id number] 05/29/2024 Antony Merrill Iron deficiency anem ia, unspecified iron deficiency anemia type D50.9 [facility] [address] [facility] [address] [place], [place] [id number] 09/23/2024 Alida Ervindy [facility] [address] [facility] [address] [place], [place] [id number] 09/30/2024 Antony Merrill [facility] [address] [place], [place] [id number] 10/12/2024 Antony Merrill Screening for osteoporosis Z13.820 and Screening for breast cancer Z12.39 [facility] [address] [facility] [address] [place], [place] [id number] 11/03/2024 Antony Merrill [facility] [address] [facility] [address] [place], [place] [id number] 11/04/2024 Antony Merrill [facility] [address] [place], [place] [id number] 07/28/2024 Antony Merrill Encounter for postoperative wound check Z48.89 and Dark urine R82.998 [facility] [address] [facility] [address] [place], [place] [id number] 09/17/2024 Alida Ervindy Nausea with vomiting , unspecified R11.2 ; Diarrhea, unspecified R19.7 ; Other constipation K59.09 ; BMI 29.0-29.9,adult Z68.29 ; Anxiety F41.9 ; Hyperlipidemia, unspecified hyperlipidemia type E78.5 and Essential hypertension I10 [facility] [address] [place], [place] [id number] 09/29/2024 Antony Merrill Easy bruising R23.3 ; Nausea and vomiting, unspecified vomiting type R11.2 and BMI 28.0-28.9,adult Z68.28 [facility] [address] [place], [place] [id number] 11/02/2024 Antony Merrill Age-related cataract , unspecified age-related cataract type, unspecified laterality H25.9 ; Pre-op exam Z01.818 ; Essential hypertension I10 ; Coronary artery disease involving nul[place] coronary artery of [place] heart without angina pectoris I25.10 ; Hyperlipidemia, [...] cataract type, unspecified laterality (ICD-10 - H25.9) 09/29/2024 BMI 28.0-28.9,adult (ICD-10 - Z68.28) 11/02/2024 Essential hypertension (ICD-10 - I10) 09/17/2024 Other constipation (ICD-10 - K59.09) 11/02/2024 Coronary artery disease involving nulato coronary artery of nul[place] heart without angina pectoris (ICD-10 - I25.10) 09/17/2024 BMI 29.0-29.9,adult (ICD-10 - Z68.29) 11/02/2024 Hyperlipidemia, unspecified hyperlipidemia type (ICD-10 - E78.5) 09/17/2024 Anxiety (ICD-10 - F41.9) 09/17/2024 Hyperlipidemia, unspecified hyperlipidemia type (ICD-10 - E78.5) 11/02/2024 Overactive bladder (ICD-10 - N32.81) 11/02/2024 Allergic rhinitis, unspecified seasonality, unspecified trigger (ICD-10 - J30.9) 09/17/2024 Essential hypertension (ICD-10 - I10) 11/02/2024 Personal history of nicotine dependence (ICD-10 [...] End Date [employer] (MEDICARE) [address] [address] [place] [phone] [id number] Neha Middleton Self - patient is the insured MED[employer] [address] [place] [id number] Neha Middleton Self - patient is the [...]
== END 2025-01-25 23:59 | disposition home or self-care (01) ==
LOC: RT 13:04
PROVIDERS: PCP Family Medicine; Visit Provider Nurse Practitioner
DX: Z01.810 Encounter for preprocedural cardiovascular examination (principal); I08.1 Rheumatic disorders of both mitral and tricuspid valves; I11.9 Hypertensive heart disease without heart failure; E78.5 Hyperlipidemia, unspecified; I25.10 Atherosclerotic heart disease of native coronary artery without angina pectoris
CPT/HCPCS: 93306